=== PATIENT | female | born 1935 | race Caucasian/White ===

== ENCOUNTER 2016-03-28 13:14 | Inpatient (IN) | payer MEDICARE ==
[~2016-03-28] VITALS: Ht 157.5 cm; Wt 104.7 kg
[~2016-03-28 13:14] MED LIST: ALBU17I INH; ALBU2.5I INH; ALLO100 PO; ATOR40TA49 PO; CETI10 PO; DIPH1TAB36 PO; HYDR-2768 PO; ISOS60 PO; LANTUSP SQ; LEVO112T2 PO; MACR100C PO; OMEP20CA5 PO; TAB-TAB PO; TRAZ50TA78 PO; TYLE650T4 PO; VITA400C70 PO
[2016-03-28 13:17] VITALS: BP 180/81; PULSE 108; RESP 24; TEMP 97.6; O2SAT 95
[2016-03-28 14:26] LABS: AUTOMATED NEUTROPHIL # 4.3 TH/MM3 (1.8-7.7); BASOPHIL % 0.4 % (0.0-2.0); EOSINOPHIL % 0.1 % (0.0-4.0); LYMPH % 12.4 % (9.0-44.0); LYMPHOCYTE # 0.7 TH/MM3 (1.0-4.8); MEAN CELL VOLUME 102.2 FL (80.0-100.0); MEAN CORPUSCULAR HGB CONC 32.3 % (32.0-36.0); NEUT % 76.1 % (16.0-70.0); PLATELET COUNT 127 TH/MM3 (150-450); RED BLOOD COUNT 3.91 MIL/MM3 (4.00-5.30); RED CELL DISTRIBUTION WIDTH 19.5 % (11.6-17.2); WHITE BLOOD COUNT 5.6 TH/MM3 (4.0-11.0)
[2016-03-28 14:44] LABS: BICARBONATE 29.3 MEQ/L (21.0-32.0); POTASSIUM 4.1 MEQ/L (3.5-5.1)
[2016-03-28 15:24] LABS: HEMO FLAGS AUTO DIFF
--- NOTE | 2016-03-28 15:25 | RADRPT ---
EXAM DATE/TIME: 03/28/2016 14:49 [facility] COMPARISON: CHEST SINGLE AP, May 17, 2015, 12:58. INDICATIONS : Cough and congestion. MEDICAL HISTORY : Myocardial infarction. Congestive heart failure. Chronic obstructive pulmonary disease. Hyperten aggie. SURGICAL HISTORY : Mastectomy, bilateral. ENCOUNTER: Initial ACUITY: 3 days PAIN SCORE: 0/10 LOCATION: Bilateral chest FINDINGS: PA and lateral views of the chest demonstrate the lungs to be symmetrically aerated without evidence of mass, infiltrate or effusion. The heart size is upper limits of normal and stable compared to the prior study.. Osseous structures are intact and stable. CONCLUSION: No acute pulmonary infiltrates. No significant change. Raul Zamora MD on March 28, 2016 at 15:23 Board Certified Radiologist. This report was verified electronically.
[2016-03-28 15:27] LABS: KERATOCYTES 1+ (NORMAL); TEARDROP RBCS 1+ (NORMAL)
[2016-03-28 15:29] LABS: OVALOCYTES 2+ (NORMAL); SCAN/DIFF AUTO DIFF CONFIRMED
[2016-03-28 16:39] VITALS: BP 179/82; PULSE 112; RESP 22; TEMP 98.4; O2SAT 98
[2016-03-28] MEDS ORDERED: methylPREDNISolone SOD SUCC 125 MG/2 ML VIAL IVP ONE (17:00)
[2016-03-28] MEDS: RESP: ALBUTEROL 2.5 MG/IPRATROPIUM 0.5 MG NEB (SCH) INH (17:11)
--- NOTE | 2016-03-28 17:15 | PD ---
HPI Chief Complaint: Cold / Flu Symptoms Time Seen by Provider: 16:45 Travel History International Travel<30 days: No Contact w/Intl Traveler<30days: No Traveled to known affect area: No History of Present Illness HPI Patient is a 80-year-old female with history of [place], CHF, COPD, [place], hypertension presenting with cough and shortness of breath for 2 days. She's had a thick yellowish-green sputum production and states that she coughs until she gags and vomits. She denies any hematemesis. She has wheezing. She has not been using nebulizers as they are out of date. She denies any chest pain and fevers. She's had runny nose and nasal congestion. No known sick contacts. She denies any diarrhea or constipation and said occasional intermittent abdominal discomfort and reduced appetite with nausea but denies any vomiting other than the post tussive emesis. She states she's had to episodes a small amount of bright red blood in her stool but denies melena. She is currently on Bumex and has been taking her medications. 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 She denies any pain in her legs. She has been off of warfarin since that ablation for A. fib. PFSH Past Medical History Hx Anticoagulant Therapy: Yes Arthritis: Yes Asthma: Yes Blood Disorders: No Heart Rhythm Problems: Yes Cancer: Yes (bilateral breast cancer) Cardiovascular Problems: Yes High Cholesterol: Yes Chemotherapy: No Chest Pain: No Congestive Heart Failure: Yes COPD: Yes Diabetes: Yes Patient Takes Glucophage: No Endocrine: Yes Gastrointestinal Disorders: Yes GERD: Yes Glaucoma: No Genitourinary: No Hepatitis: No Hiatal Hernia: Yes Hypertension: Yes Immune Disorder: No Implanted Vascular Access Dvce: Yes Kidney Stones: No Musculoskeletal: Yes Neurologic: No Psychiatric: No Reproductive: No Respiratory: Yes Immunizations Current: Yes Myocardial Infarction: Yes Radiation Therapy: No Renal Failure: No Sleep Apnea: Yes (uses cpap) Thyroid Disease: No Ulcer: No ?: Not Menopausal: Yes Past Surgical History Abdominal Surgery: Yes (colon resection) AICD: No Arteriovenous Shunt: No Body Medical Devices: cardiac stents hardware in the neck Cardiac Surgery: Yes (ABLATION) Coronary Stent: Yes Ear Surgery: No Endocrine Surgery: No Eye Surgery: Yes (cataract surgery) Genitourinary Surgery: No Gynecologic Surgery: Yes (hysterectomy danielle mastectomy) Hysterectomy: Yes Insulin Pump: No Joint Replacement: Yes (left hip) Mastectomy: Yes (BILAT) Neurologic Surgery: No Oral Surgery: Yes Pacemaker: No Thoracic Surgery: Yes (BILATERAL MASTECTOMY) Other Surgery: Yes Social History Alcohol Use: No Tobacco Use: No Substance Use: No Allergies-Medications (Allergen,Severity, Reaction): Coded Allergies: Benadryl (Verified Allergy, Severe, 05/17/15) anaphylactic Lasix (Verified Allergy, Severe, 05/17/15) causes throat to swell Norpramin (Verified Allergy, Severe, 05/17/15) causes severe anger Percocet (Verified Allergy, Severe, 05/17/15) causes skin irritation Pineapple (Verified Allergy, Severe, 05/17/15) anaphylactic Latex (Unverified Allergy, Intermediate, Rash, 05/17/15) Reported Meds & Prescriptions Reported Meds & Active Scripts Active Reported Allopurinol 100 Mg Tab 100 Mg PO DAILY Gabapentin 100 Mg Cap 100 Mg PO BID Prilosec (Omeprazole) 20 Mg Cap 20 Mg PO DAILY Aspirin EC (Aspirin) 81 Mg Tabdr 81 Mg PO DAILY Coreg (Carvedilol) 6.25 Mg Tab 6.25 Mg PO DAILY Bumex (Bumetanide) 1 Mg Tab 1 Mg PO DAILY Atorvastatin (Atorvastatin Calcium) 40 Mg Tab 40 Mg PO HS Plavix (Clopidogrel Bisulfate) 75 Mg Tab 75 Mg PO DAILY Novolog Inj (Insulin Aspart) 1,000 Unit/10 Ml Vial 1-20 Units SQ ACHS Max dose at bedtime:( )units; sugars less than 70,(0)units; sugars 150-199,(1) unit; sugars 200-249,(3) units; sugars 250-299,(5) units; sugars 300-349,(7) units; sugars greater than 349,(9) units Trazodone (Trazodone HCl) 100 Mg Tab 100 Mg PO HS Lantus Inj (Insulin Glargine) 1,000 Unit/10 Ml Vial 8 Units SQ BID Levothyroxine (Levothyroxine Sodium) 112 Mcg Tab 112 Mcg PO DAILY Proventil Hfa 6.7 GM Inh (Albuterol Sulfate) 90 Mcg/Act Aer 2.5 Puff INH Q4H PRN Albuterol (Albuterol Sulfate) 2 Mg Tab 2 Mg PO TID Review of Systems Except as stated in HPI: all other systems reviewed are Neg Physical Exam Narrative GENERAL: Well-developed and well-nourished adult female in no acute distress. SKIN: Slight reddening of the skin without breaks in the sacral area. Warm and dry. Good turgor without tenting. HEAD: Normocephalic and atraumatic. EYES: PERRL bilaterally, 5mm. EOMI bilaterally. No injection or icterus present. No proptosis. Lids without edema or erythema. ENT: Bilateral ear canals are non-edematous/non-erythematous without otorrhea. Bilateral TMs have intact landmarks and without distortion, perforation, air- fluid level or erythema. Nasal erythematous and edematous with scant yellow discharge, septum intact and midline. Buccal mucosa pink and moist. Oropharynx free of erythema, tonsillar hypertrophy, masses, swelling, asymmetry and exudates. Uvula midline and airway patent. NECK: Supple, no meningeal signs. Trachea midline, no JVD. No cervical or facial lymphadenopathy. CARDIOVASCULAR: Regular rate and rhythm without murmurs, rubs, clicks or gallops. Radial and dorsalis pedis pulses 2+ bilaterally. Trace pedal edema after wraps removed, negative bilateral Homans sign. There is discoloration consistent with chronic vasculopathy but no signs of cellulitis or open wounds. RESPIRATORY: Diminished breath sounds diffusely with scattered rhonchi and wheezing with fine crackles heard at the bases bilaterally. Frequent wet sounding cough without sputum production. Mildly tachypneic, no use of accessory muscles. GASTROINTESTINAL: Non-tender, non-distended. Normal bowel sounds all 4 quadrants. No masses or organomegaly present. Rectal exam reveals no fissures or hemorrhoids externally. Digital rectal exam reveals no loss of rectal tone, masses or tenderness. There is soft stool in the rectal vault, no hematochezia or melena. Hemoccult negative. MUSCULOSKELETAL: Patient freely moving all four extremities spontaneously. Extremities without clubbing, cyanosis, or edema. No obvious deformities. NEUROLOGIC: CN II-XII grossly intact. Awake and alert. Motor grossly within normal limits. Normal speech. PSYCHIATRIC: Appropriate mood and affect; insight and judgment normal. *Patient was examined in the presence of a nurse, Farida, at all times* Data Data Last Documented VS Vital Signs Date Time Temp Pulse Resp B/P Pulse Ox O2 Delivery O2 Flow Rate FiO2 03/28/16 20:55 112 21 141/68 98 Room Air 03/28/16 19:39 2 03/28/16 19:38 98.1 Orders Complete Blood Count With Diff (03/28/16 13:29) Basic Metabolic Panel (Bmp) (03/28/16 13:29) Blood Culture (03/28/16 13:29) Electrocardiogram (03/28/16 13:29) Chest, Pa & Lat (03/28/16 13:33) Prothrombin Time / Inr (Pt) (03/28/16 16:53) Act Partial Throm Time (Ptt) (03/28/16 16:53) Lactic Acid Sepsis Protocol (03/28/16 16:53) Lipase (03/28/16 16:53) Urinalysis - C+S If Indicated (03/28/16 16:53) Influenzae A/B Antigen (03/28/16 16:53) B-Type Natriuretic Peptide (03/28/16 16:53) Methylprednisolone So Succ Inj (Solumedr (03/28/16 17:00) Albuterol-Ipratropium Neb (Duoneb Neb) (03/28/16 17:00) Ckmb (Isoenzyme) Profile (03/28/16 16:59) Troponin I (03/28/16 16:59) Vancomycin Inj (Vancomycin Inj) (03/28/16 18:12) Piperacil-Tazo 4.5 Gm Premix (Zosyn 4.5 (03/28/16 18:12) Sodium Chlor 0.9% 1000 Ml Inj (Ns 1000 M (03/28/16 18:15) Sodium Chlor 0.9% 1000 Ml Inj (Ns 1000 M (03/28/16 18:15) Sodium Chlor 0.9% 1000 Ml Inj (Ns 1000 M (03/28/16 18:15) Sodium Chlor 0.9% 1000 Ml Inj (Ns 1000 M (03/28/16 18:15) Ct Abd/Pel W/O Iv Contrast (03/28/16 18:41) Ventilation & Perfusion Scan (03/28/16 20:24) Sodium Chlor 0.9% 1000 Ml Inj (Ns 1000 M (03/28/16 20:41) Comprehensive Metabolic Panel (03/28/16 22:33) Admit Order (Ed Use Only) (03/28/16 22:33) Labs Laboratory Tests Test 03/28/16 03/28/16 03/28/16 03/28/16 14:00 17:24 17:45 18:25 White Blood Count 5.6 TH/MM3 Red Blood Count 3.91 MIL/MM3 Hemoglobin 12.9 GM/DL Hematocrit 40.0 % Mean Corpuscular Volume 102.2 FL Mean Corpuscular Hemoglobin 33.0 PG Mean Corpuscular Hemoglobin 32.3 % Concent Red Cell Distribution Width 19.5 % Platelet Count 127 TH/MM3 Mean Platelet Volume 8.9 FL Neutrophils (%) (Auto) 76.1 % Lymphocytes (%) (Auto) 12.4 % Monocytes (%) (Auto) 11.0 % Eosinophils (%) (Auto) 0.1 % Basophils (%) (Auto) 0.4 % Neutrophils # (Auto) 4.3 TH/MM3 Lymphocytes # (Auto) 0.7 TH/MM3 Monocytes # (Auto) 0.6 TH/MM3 Eosinophils # (Auto) 0.0 TH/MM3 Basophils # (Auto) 0.0 TH/MM3 CBC Comment AUTO DIFF Differential Comment AUTO DIFF CONFIRMED Basophilic Stippling FAINT Tear Drop Cells 1+ Ovalocytes 2+ Keratocytes 1+ Sodium Level 134 MEQ/L Potassium Level 4.1 MEQ/L Chloride Level 96 MEQ/L Carbon Dioxide Level 29.3 MEQ/L Anion Gap 9 MEQ/L Blood Urea Nitrogen 21 MG/DL Creatinine 1.49 MG/DL Estimat Glomerular Filtration 34 ML/MIN Rate Random Glucose 143 MG/DL Calcium Level 7.9 MG/DL Total Creatine Kinase 46 U/L Troponin I 0.03 NG/ML B-Type Natriuretic Peptide 2608 PG/ML Lipase 58 U/L Lactic Acid Level 5.5 mmol/L Prothrombin Time 17.7 SEC Prothromb Time International 1.6 RATIO Ratio Activated Partial 29.6 SEC Thromboplast Time Urine Color YELLOW Urine Turbidity CLEAR Urine pH 5.0 Urine Specific [place] 1.010 Urine Protein NEG mg/dL Urine Glucose (UA) NEG mg/dL Urine Ketones NEG mg/dL Urine Occult Blood NEG Urine Nitrite NEG Urine Bilirubin NEG Urine Urobilinogen LESS THAN 2.0 MG/DL Urine Leukocyte Esterase NEG Urine Amorphous Sediment OCC Microscopic Urinalysis Comment CATH-CULT NOT IND Test 12/30/16 19:45 Lactic Acid Level 5.7 mmol/L [facility] Medical Decision Making Medical Screen Exam Complete: Yes Emergency Medical Condition: Yes Differential Diagnosis COPD exacerbation versus bronchitis versus pneumonia versus CHF exacerbation versus ACS versus pancreatitis versus GI bleed Narrative Course Patient is a 80-year-old female with history of COPD, CHF, [place], hypertension and gastric bypass presenting with complaint of productive cough and dyspnea the last 2 days. She denies any chest pain and has chronic pedal edema without any acute worsening. She's had some runny nose as well. Denies fever. She reports she is also had some nonbloody emesis, left lower quadrant pain and occasional epigastric pain and some bright red blood by rectum. Hemoccult negative. Tender the left lower quadrant and epigastrium. Patient is very coarse breath sounds with rhonchi and rales which did improve with Solu-Medrol and DuoNeb's. Chest x-ray shows no acute cardiopulmonary process including acute CHF exacerbation. CBC shows WBC 5.6 with a mild neutrophilia without bands. H&H 12.9/40. Patient admits 127. Metabolic panel shows sodium 134, creatinine 1.49 which is chronic. Calcium 7.9 which is chronic. Troponin 0.3 and CK 46. EKG showed no changes when compared to previous. Lactic acid was stat call 5.5. Consulted again with who started patient on vancomycin and Zosyn for likely intra-abdominal source. Initiated fluids per sepsis protocol and I was to observe patient and reevaluate her after the first liter. Shortly after Dr. Aldana took over for her and the patient's BNP was 2608. We stopped the fluids. Patient no increased work of breathing or rales on auscultation. UA unremarkable. CT scan shows diverticulosis and cannot exclude diverticulitis. There is ascites, small left pleural effusion and a ventral wall hernia as well as anasarca. Patient has remained tachycardic throughout but continues to deny chest pain. There is no signs of DVT on exam however she does have remote history of DVT. We will order a VQ scan as she does not have the renal function for a contrast CTA. Her blood pressures remained stable throughout and she is not hypoxic. Per Dr. Aldana's suggestion consult with Dr. Jameson the professor of family medicine who recommended to continue the liter bolus and then switched to maintenance fluids at 100 cc per hour afterwards. He stated that we should admit her to the hospitalist service but they can have an ICU bed she can be more closely monitored. VQ scan shows low probability. Call was placed to Dr. Mcfadden who accepted the admission. [facility] Point of Care Internal Pos. & Neg. Controls: Passed Fecal Specimen Occult Blood: Negative Diagnosis Primary Impression: Sepsis Qualified Code: A41.9 - Sepsis, due to unspecified organism Additional Impression: Diverticulitis Qualified Code: K57.32 - Diverticulitis of large intestine without perforation or abscess without bleeding Admitting Information Admitting Physician Requests: Admit Condition: Stable Clyde Whelan III Mar 28, 2016 17:15
[2016-03-28] MEDS ORDERED: PIPERACIL-TAZO 4.5 GM PREMIX 100 ML IV STA (18:12)
[2016-03-28] MEDS ORDERED: VANCOMYCIN INJ 1,000 MG in SODIUM CHLOR 0.9% 250 ML INJ 250 ML IV STA (18:12)
[2016-03-28] MEDS ORDERED: SODIUM CHLOR 0.9% 1000 ML INJ 700 ML IV ONE (18:15)
[2016-03-28] MEDS ORDERED: SODIUM CHLOR 0.9% 1000 ML INJ 1,000 ML IV ONE ×3 (18:15)
--- NOTE | 2016-03-28 18:20 | PD ---
Data Data Last Documented VS Vital Signs Date Time Temp Pulse Resp B/P Pulse Ox O2 Delivery O2 Flow Rate FiO2 03/28/16 20:55 112 21 141/68 98 Room Air 03/28/16 19:39 2 03/28/16 19:38 98.1 Orders Complete Blood Count With Diff (03/28/16 13:29) Basic Metabolic Panel (Bmp) (03/28/16 13:29) Blood Culture (03/28/16 13:29) Electrocardiogram (03/28/16 13:29) Chest, Pa & Lat (03/28/16 13:33) Prothrombin Time / Inr (Pt) (03/28/16 16:53) Act Partial Throm Time (Ptt) (03/28/16 16:53) Lactic Acid Sepsis Protocol (03/28/16 16:53) Lipase (03/28/16 16:53) Urinalysis - C+S If Indicated (03/28/16 16:53) Influenzae A/B Antigen (03/28/16 16:53) B-Type Natriuretic Peptide (03/28/16 16:53) Methylprednisolone So Succ Inj (Solumedr (03/28/16 17:00) Albuterol-Ipratropium Neb (Duoneb Neb) (03/28/16 17:00) Ckmb (Isoenzyme) Profile (03/28/16 16:59) Troponin I (03/28/16 16:59) Vancomycin Inj (Vancomycin Inj) (03/28/16 18:12) Piperacil-Tazo 4.5 Gm Premix (Zosyn 4.5 (03/28/16 18:12) Sodium Chlor 0.9% 1000 Ml Inj (Ns 1000 M (03/28/16 18:15) Sodium Chlor 0.9% 1000 Ml Inj (Ns 1000 M (03/28/16 18:15) Sodium Chlor 0.9% 1000 Ml Inj (Ns 1000 M (03/28/16 18:15) Sodium Chlor 0.9% 1000 Ml Inj (Ns 1000 M (03/28/16 18:15) Ct Abd/Pel W/O Iv Contrast (03/28/16 18:41) Ventilation & Perfusion Scan (03/28/16 20:24) Sodium Chlor 0.9% 1000 Ml Inj (Ns 1000 M (03/28/16 20:41) Comprehensive Metabolic Panel (03/28/16 22:33) Admit Order (Ed Use Only) (03/28/16 22:33) Labs Laboratory Tests Test 03/28/16 03/28/16 03/28/16 03/28/16 14:00 17:24 17:45 18:25 White Blood Count 5.6 TH/MM3 Red Blood Count 3.91 MIL/MM3 Hemoglobin 12.9 GM/DL Hematocrit 40.0 % Mean Corpuscular Volume 102.2 FL Mean Corpuscular Hemoglobin 33.0 PG Mean Corpuscular Hemoglobin 32.3 % Concent Red Cell Distribution Width 19.5 % Platelet Count 127 TH/MM3 Mean Platelet Volume 8.9 FL Neutrophils (%) (Auto) 76.1 % Lymphocytes (%) (Auto) 12.4 % Monocytes (%) (Auto) 11.0 % Eosinophils (%) (Auto) 0.1 % Basophils (%) (Auto) 0.4 % Neutrophils # (Auto) 4.3 TH/MM3 Lymphocytes # (Auto) 0.7 TH/MM3 Monocytes # (Auto) 0.6 TH/MM3 Eosinophils # (Auto) 0.0 TH/MM3 Basophils # (Auto) 0.0 TH/MM3 CBC Comment AUTO DIFF Differential Comment AUTO DIFF CONFIRMED Basophilic Stippling FAINT Tear Drop Cells 1+ Ovalocytes 2+ Keratocytes 1+ Sodium Level 134 MEQ/L Potassium Level 4.1 MEQ/L Chloride Level 96 MEQ/L Carbon Dioxide Level 29.3 MEQ/L Anion Gap 9 MEQ/L Blood Urea Nitrogen 21 MG/DL Creatinine 1.49 MG/DL Estimat Glomerular Filtration 34 ML/MIN Rate Random Glucose 143 MG/DL Calcium Level 7.9 MG/DL Total Creatine Kinase 46 U/L Troponin I 0.03 NG/ML B-Type Natriuretic Peptide 2608 PG/ML Lipase 58 U/L Lactic Acid Level 5.5 mmol/L Prothrombin Time 17.7 SEC Prothromb Time International 1.6 RATIO Ratio Activated Partial 29.6 SEC Thromboplast Time Urine Color YELLOW Urine Turbidity CLEAR Urine pH 5.0 Urine Specific [place] 1.010 Urine Protein NEG mg/dL Urine Glucose (UA) NEG mg/dL Urine Ketones NEG mg/dL Urine Occult Blood NEG Urine Nitrite NEG Urine Bilirubin NEG Urine Urobilinogen LESS THAN 2.0 MG/DL Urine Leukocyte Esterase NEG Urine Amorphous Sediment OCC Microscopic Urinalysis Comment CATH-CULT NOT IND Test 03/28/16 19:45 Lactic Acid Level 5.7 mmol/L MDM Supervised Visit with TOMMY: Yes Narrative Course I, Dr. Simmons, have reviewed the advance practice practioner's documentation and am in agreement, met with the patient face to face, made the diagnosis, and the medical decision making was done by me. *My assessment and Findings: 80-year-old female with history of CAD with previous [place], CHF, COPD, HTN here with 2 days of shortness of breath, sputum production. No documented fevers. She notes mild periumbilical abdominal discomfort. Questionable blood in the stool, states that the stool has been dark. On exam she has mild to moderate periumbilical tenderness to palpation without rebound or guarding. Wheezing and rhonchi throughout. Slightly tachycardic, slightly tachypneic. Hemoccult per PA was negative. Differential includes COPD exacerbation, pneumonia, viral syndrome, influenza, CHF exacerbation, sepsis, intra-abdominal source sepsis. Her abdominal examination is not out of proportion to where I would suspect mesenteric ischemia. Patient's EKG is at baseline with right bundle branch block. No active ischemic changes. Chest x-ray negative for any focal infiltrate. Laboratory workup notable for lactate of 5.5. Patient was given 30 mg/kg normal saline bolus and we will monitor for signs of evidence of volume overload. She was covered with vancomycin, Zosyn. CT abdomen and pelvis showed possible diverticulitis. Patient had been treated appropriately with antibiotics and will be admitted for further management of his septic shock. Critical Care Narrative Aggregate critical care time was 35 minutes. Time to perform other separately billable procedures was not included in the critical care time. My time did not include minutes spent treating any other patients simultaneously or on activities that did not directly contribute to the patient's treatment. The services I provided to this patient were to treat and/or prevent clinically significant deterioration that could result in: Cardiopulmonary decompensation, , disability I provided critical care services requiring my management, as noted below: Chart data review, documentation time, medication orders and management, vital sign assessments/reviewing monitor data, ordering and reviewing lab tests, ordering and interpreting/reviewing x-rays and diagnostic studies, care of the patient and discussion of the patient with the admitting physicians. Sepsis Criteria SIRS Criteria (2 or more): Heart rate over 90 Sepsis Criteria (SIRS+source): Infect source susp/known Severe Sepsis (+one): Lactate >2 Septic Shock Criteria: Lactic acid >=4 Criteria Outcome: Meets SIRS criteria, Meets sepsis criteria, Meets severe sepsis criteria, Meets septic shock criteria Laura Simmons MD Mar 28, 2016 18:20
[2016-03-28 18:28] LABS: APTT (PATIENT) 29.6 SEC (24.3-30.1); INTERNATIONAL NORMALIZED RATIO 1.6 RATIO; PROTHROMBIN TIME - PATIENT 17.7 SEC (9.8-11.6)
[2016-03-28 18:47] LABS: BLOOD, URINE NEG (NEG); GLUCOSE,URINE NEG (NEG); KETONE, URINE NEG (NEG); NITRITE,URINE NEG (NEG); URINE COLOR YELLOW (YELLW/STRAW)
[2016-03-28 18:48] LABS: COMMENT (UR) CATH-CULT NOT IND; CULTURE IF INDICATED CATH CULTURE NOT IND
[2016-03-28] MEDS ORDERED: ASPI81TA11 PO (19:05)
[2016-03-28] MEDS ORDERED: ALBU6.7H INH (19:05)
[2016-03-28] MEDS ORDERED: LEVO112T2 PO (19:05)
[2016-03-28] MEDS ORDERED: BUME1TAB26 PO (19:05)
[2016-03-28] MEDS ORDERED: PRIL20CA9 PO (19:05)
[2016-03-28] MEDS ORDERED: CARV6.25 PO (19:05)
[2016-03-28] MEDS ORDERED: PLAV75TA29 PO (19:05)
[2016-03-28] MEDS ORDERED: ATOR40TA16 PO (19:05)
[2016-03-28] MEDS ORDERED: TRAZ100T4 PO (19:05)
[2016-03-28] MEDS ORDERED: NOVOLOGP2 SQ (19:05)
[2016-03-28] MEDS ORDERED: ALLO100T PO (19:05)
[2016-03-28] MEDS ORDERED: LANTUS2P SQ (19:05)
[2016-03-28] MEDS ORDERED: GABA100C4 PO (19:05)
[2016-03-28] MEDS ORDERED: ALBU2TAB4 PO (19:05)
--- NOTE | 2016-03-28 19:16 | RADRPT ---
EXAM DATE/TIME: 03/28/2016 18:52 [facility] COMPARISON: No previous studies available for comparison. INDICATIONS : LLQ abdominal pain for 1 day. ORAL CONTRAST: No oral contrast ingested. RADIATION DOSE: 16.15 CTDIvol (mGy) MEDICAL HISTORY : Hypertension. Cardiovascular disease Chronic obstructive pulmonary disease.Hiatal hernia; Diabetes. SURGICAL HISTORY : Mastectomy, bilateral. Hysterectomy.Colon resection.Left hip replacement; Gastric bypass. ENCOUNTER: Initial ACUITY: 1 day PAIN SCALE: 5/10 LOCATION: Left lower quadrant Abdomen/pelvis TECHNIQUE: Volumetric scanning of the abdomen and pelvis was performed. Using automated exposure control and ad justment of the mA and/or kV according to patient size, radiation dose was kept as low as reasonably achievable to obtain optimal diagnostic quality images. FINDINGS: LOWER LUNGS: Small left pleural effusion LIVER: Homogeneous density without lesion. There is no dilation of the biliary tree. Cholecystectomy clips . Small abdominal ascites. SPLEEN: Normal size without lesion. PANCREAS: Within normal limits. KIDNEYS: Normal in size and shape. There is no mass, stone, or hydronephrosis. ADRENAL GLANDS: Within normal limits. VASCULAR: There is no aortic aneurysm. BOWEL/MESENTERY: Scattered diverticulosis. Minimal fluid in the left lower quadrant. There is no free intraperitoneal air or fluid. Dialysis catheter is seen. Lap band procedure. ABDOMINAL WALL: Small ventral wall hernia on the left lower abdomen. This contains predominantly fat. RETROPERITONEUM: There is no lymphadenopathy. BLADDER: No wall thickening or mass. REPRODUCTIVE: Within normal limits. INGUINAL: There is no lymphadenopathy or hernia. MUSCULOSKELETAL: Anasarca along the soft tissues.. CONCLUSION: 1. Diverticulosis of the sigmoid colon, cannot exclude diverticulitis. 2. Small amount of abdominal ascites. 3. Small left pleural effusion. 4. Ventral wall hernia containing fat along the left abdominal wall. 5. Cholecystectomy. 6. Anasarca. 7. LAP band procedure. Vipin Magdaleno MD on March 28, 2016 at 19:08 Board Certified Radiologist. This report was verified electronically.
[2016-03-28 19:35] LABS: LACTIC ACID GHOST NOT REPORTABLE
[2016-03-28 19:38] VITALS: BP 147/79; PULSE 125; RESP 24; TEMP 98.1; O2SAT 99
[2016-03-28] MEDS ORDERED: SODIUM CHLOR 0.9% 1000 ML INJ 1,000 ML IV SCH (20:41)
[2016-03-28 20:55] VITALS: BP 141/68; PULSE 112; RESP 21; O2SAT 98
--- NOTE | 2016-03-28 22:03 | RADRPT ---
EXAM DATE/TIME: 03/28/2016 21:31 [facility] COMPARISON: No previous studies available for comparison. INDICATIONS : Dyspnea for one month with cough. DOSE: 8.5 mCi Tc99m MAA IV 0.77 mCi Tc99m DTPA aerosol MEDICAL HISTORY : Chronic obstructive pulmonary disease. Gastroesophageal reflux disease. Myocardial infarction. Hypert ension, breast cancer, atrial fibrillation and congestive heart failure. SURGICAL HISTORY : Hysterectomy. Mastectomy, bilateral. Colon resection. Ablation and left hip replacement. ENCOUNTER: Initial ACUITY: 1 month PAIN SCALE: 0/10 LOCATION: chest TECHNIQUE: Following five minutes of tidal breathing of DTPA aerosol, planar images of the lungs were performed in eight projections. The patient was then injected with MAA, and eight-view perfusion scan was perf ormed. FINDINGS: There is a heterogeneous pattern of aerosol delivery to the periphery of both lungs. No focal ventil atory defects are seen. The perfusion lung scan demonstrates a homogenous pattern of uptake in both lungs. No segmental or s ubsegmental defects are seen. CONCLUSION: Low probability for pulmonary embolism. Vipin Magdaleno MD on March 28, 2016 at 22:01 Board Certified Radiologist. This report was verified electronically.
--- NOTE | 2016-03-28 22:37 | HHI.HP ---
[facility] Service [facility] Primary Care Physician Non-Staff Admission Diagnosis SEPSIS, ABD SOURCE Diagnoses: (1) Sepsis Diagnosis: Principal (2) DM (diabetes mellitus) Diagnosis: Principal (3) HTN (hypertension) Diagnosis: Principal (4) CHF (congestive heart failure) Diagnosis: Principal Travel History International Travel<30 Days: No Contact w/Intl Traveler <30 Da: No Traveled to Known Affected Are: No History of Present Illness This is a 80-year-old female with a PMH of HTN, CHF (Echo 09/2015 w/ EF 30-40%), Breast CA and JAMEY who came into the ER w/ complaints of SOB and productive cough w/ yellow-colored sputum x2 days. Denies chest pain or sick contacts. Also reports abdominal pain w/ nausea, but no vomiting. No diarrhea. On arrival, BP 180/81, HR 108, O2 sat 95% on RA, Afebrile. WBC normal. Neutrophil count mildly elevated. Creatinine 1.49, previously 1.25 on 05/17/15. BNP 2608. INR 1.6. CXR with no acute findings. CT Abd/Pelvis w/ diverticulosis, cannot exclude diverticulitis. V/Q Scan low probability for PE. S/p Vanc/Zosyn for Sepsis and suspected intra-abdominal infection. Review of Systems Other ROS: 14 point review of systems otherwise negative. Past Family Social History Past Medical History PMH: HTN, CHF (Echo 09/2015 w/ EF 30-40%), Breast CA and JAMEY Past Surgical History PAST SURGICAL HISTORY: Colon Resection, Cardiac Stent Cardiac Ablation, Cataract Surgery, Hysterectomy, Bilateral Mastectomy, Left Hip Replacement Allergies: Coded Allergies: Benadryl (Verified Allergy, Severe, 05/17/15) anaphylactic Lasix (Verified Allergy, Severe, 05/17/15) causes throat to swell Norpramin (Verified Allergy, Severe, 05/17/15) causes severe anger Percocet (Verified Allergy, Severe, 05/17/15) causes skin irritation Pineapple (Verified Allergy, Severe, 05/17/15) anaphylactic Latex (Unverified Allergy, Intermediate, Rash, 05/17/15) Family History PAST FAMILY HISTORY: Reviewed. No h/o DM or CAD Social History PAST SOCIAL HISTORY: Negative for alcohol, tobacco or drugs. Physical Exam Vital Signs Vital Signs Date Time Temp Pulse Resp B/P Pulse Ox O2 Delivery O2 Flow Rate FiO2 03/28/16 20:55 112 21 141/68 98 Room Air 03/28/16 19:39 124 99 2 03/28/16 19:38 98.1 125 24 147/79 99 Room Air 03/28/16 16:39 98.4 112 22 179/82 98 Room Air 03/28/16 16:39 65 18 97 Room Air 03/28/16 13:17 97.6 108 24 180/81 95 Room Air Physical Exam PE: GENERAL: Elderly female in no acute distress. HEENT: PERRLA, EOMI. No scleral icterus or conjunctival pallor. No lid lag or facial droop. CARDIOVASCULAR: Regular rate and rhythm. No obvious murmurs to auscultation. No chest tenderness to palpation. RESPIRATORY: Scattered rhonchi, occasional wheezing. Clear to auscultation. Breath sounds equal bilaterally. GASTROINTESTINAL: Abdomen soft, non-tender, nondistended. BS normal. MUSCULOSKELETAL: Extremities without clubbing, cyanosis, or edema. No obvious deformities. NEUROLOGICAL: Awake, alert. No focal neurologic deficits. Moving both upper and lower extremities spontaneously. Laboratory Laboratory Tests Test 03/28/16 03/28/16 03/28/16 03/28/16 14:00 17:24 17:45 18:25 White Blood Count 5.6 Red Blood Count 3.91 Hemoglobin 12.9 Hematocrit 40.0 Mean Corpuscular Volume 102.2 Mean Corpuscular Hemoglobin 33.0 Mean Corpuscular Hemoglobin 32.3 Concent Red Cell Distribution Width 19.5 Platelet Count 127 Mean Platelet Volume 8.9 Neutrophils (%) (Auto) 76.1 Lymphocytes (%) (Auto) 12.4 Monocytes (%) (Auto) 11.0 Eosinophils (%) (Auto) 0.1 Basophils (%) (Auto) 0.4 Neutrophils # (Auto) 4.3 Lymphocytes # (Auto) 0.7 Monocytes # (Auto) 0.6 Eosinophils # (Auto) 0.0 Basophils # (Auto) 0.0 CBC Comment AUTO DIFF Differential Comment AUTO DIFF CONFIRMED Basophilic Stippling FAINT Tear Drop Cells 1+ Ovalocytes 2+ Keratocytes 1+ Sodium Level 134 Potassium Level 4.1 Chloride Level 96 Carbon Dioxide Level 29.3 Anion Gap 9 Blood Urea Nitrogen 21 Creatinine 1.49 Estimat Glomerular Filtration 34 Rate Random Glucose 143 Calcium Level 7.9 Total Creatine Kinase 46 Troponin I 0.03 B-Type Natriuretic Peptide 2608 Lipase 58 Lactic Acid Level 5.5 Prothrombin Time 17.7 Prothromb Time International 1.6 Ratio Activated Partial 29.6 Thromboplast Time Urine Color YELLOW Urine Turbidity CLEAR Urine pH 5.0 Urine Specific [place] 1.010 Urine Protein NEG Urine Glucose (UA) NEG Urine Ketones NEG Urine Occult Blood NEG Urine Nitrite NEG Urine Bilirubin NEG Urine Urobilinogen LESS THAN 2.0 Urine Leukocyte Esterase NEG Urine Amorphous Sediment OCC Microscopic Urinalysis Comment CATH-CULT NOT IND Test 03/28/16 19:45 Lactic Acid Level 5.7 Date/Time Procedure Status Source Growth 03/28/16 14:05 Aerobic Blood Culture Received Blood Peripheral Pending 03/28/16 14:05 Anaerobic Blood Culture Received Blood Peripheral Pending Result Diagram: 03/28/16 1400 03/28/16 1400 Assessment and Plan Problem List: (1) Sepsis ICD Code: A41.9 Status: Acute (2) DM (diabetes mellitus) ICD Code: E11.9 Status: Acute (3) HTN (hypertension) ICD Code: I10 Status: Acute (4) CHF (congestive heart failure) ICD Code: I50.9 Status: Acute Assessment and Plan A/P: 1. Sepsis: HR 120's, RR 24. Lactic Acid 5.5, repeat 5.7. Source-suspected intra-abdominal source. S/p Blood Cultures and IV Vanc/Zosyn in ER. Check Sputum cultures in light of productive cough. Continue w/ Vanc/Cefepime. CXR negative, images reviewed by me. CT Abd/Pelvis w/ possible diverticulitis, images reviewed by me. IVF, caution w/ CHF. Repeat lactic acid, repeat labs. 2. CHF: Acute on Chronic. Systolic. EF 30-40% per records from 09/2015. Resume Bumex, caution w/ Sepsis. BNP 2608. 3. DM: Sliding scale w/ Accu-Cheks. Resume home Lantus once taking adequate PO. 4. HTN: Controlled. Hold antihypertensives in light of sepsis, monitor BP. 5. DVT Prophylaxis: SCD/Teds. 6. Social work for d/c planning as needed. 7. Case discussed w/ ER physician at length. Physician Certification 2 Midnight Certification Type: Admission for Inpatient Services Order for Inpatient Services The services are ordered in accordance with Medicare regulations or non- Medicare payer requirements, as applicable. In the case of services not specified as inpatient-only, they are appropriately provided as inpatient services in accordance with the 2-midnight benchmark. Estimated LOS (days): 2 days is the estimated time the patient will need to remain in the hospital, assuming treatment plan goals are met and no additional complications. Post-Hospital Plan: Not yet determined Problem Qualifiers (1) Sepsis: Qualified Code: A41.9 - Sepsis, due to unspecified organism Mendy Mcfadden MD Mar 28, 2016 22:37
[2016-03-28 22:44] VITALS: BP 137/75; PULSE 120; RESP 21; O2SAT 100
[2016-03-28] MEDS ORDERED: DEXTROSE 50% IN WATER 50 ML VIAL(D50) IV PUSH PRN (22:45)
[2016-03-28] MEDS ORDERED: VANCOMYCIN 1,000 MG/NS 250 ML IV ONE ×2 (22:45)
[2016-03-28] MEDS ORDERED: SODIUM CHLORIDE 0.9% FLUSH 5 ML FLUSH FLUSH PRN (22:45)
[2016-03-28] MEDS ORDERED: ALBUTEROL SULFATE 90 MCG/ACT HFA 8 GM INHALER INH PRN (22:45)
[2016-03-28] MEDS ORDERED: BISACODYL 10 MG SUPP PR PRN (22:45)
[2016-03-28] MEDS ORDERED: GLUCAGON 1 MG/ML VIAL OTHER PRN (22:45)
[2016-03-28] MEDS ORDERED: Vancomycin Consult Pharmacy 1 EA OTHER SCH (22:45)
[2016-03-28] MEDS: SODIUM CHLOR 0.9% 1000 ML INJ 1,000 ML IV SCH (22:56)
[2016-03-29] VITALS (14 sets, daily range): BP systolic 127–140; BP diastolic 59–67; PULSE 97–119; RESP 13–26; TEMP 97.4–98; O2SAT 99–100
[2016-03-29] MEDS ORDERED: MISCELLANEOUS NURSING INFORMATION XX SCH (02:00)
[2016-03-29] MEDS ORDERED: CHLORHEXIDINE GLUCONATE 2 % 1 PACK (2 CLOTHS) TOP PRN (02:00)
[2016-03-29 02:36] LABS: ALKALINE PHOSPHATASE 197 U/L (45-117); ALT (GPT) 12 U/L (10-53); ANION GAP 17 MEQ/L (5-15); AST (GOT) 41 U/L (15-37); BLOOD UREA NITROGEN 24 MG/DL (7-18); CHLORIDE 102 MEQ/L (98-107); GLOMERULAR FILTRATION RATE 25 ML/MIN (>89); POTASSIUM 4.9 MEQ/L (3.5-5.1); SODIUM (NA) 138 MEQ/L (136-145); TOTAL BILIRUBIN ADULT 1.7 MG/DL (0.2-1.0)
[2016-03-29] MEDS: CHLORHEXIDINE GLUCONATE 2 % 1 PACK (2 CLOTHS) TOP SCH (04:00)
[2016-03-29] MEDS: INSULIN ASPART SUPPLEMENTAL SCALE SQ SCH ×4 (06:44→20:12)
[2016-03-29] MEDS: ONDANSETRON HCL 4 MG/2 ML VIAL IVP PRN ×3 (07:47→21:37)
--- NOTE | 2016-03-29 08:03 | HHI.PR ---
Subjective Remarks Feels sob and very tired. No much urine output and cr is worsening. No abdominal pain but feels suprapubic discomfort. Says she had a large BM yesterday and she had rectal bleeding. Patient say she has no chest pain . No fever or chills. + cough nonproductive. Objective Vitals Vital Signs Date Time Temp Pulse Resp B/P Pulse Ox O2 Delivery O2 Flow Rate FiO2 03/29/16 06:00 110 03/29/16 05:35 97 03/29/16 05:35 97.4 110 22 129/61 99 03/29/16 04:41 114 21 127/61 99 Nasal Cannula 2 03/29/16 02:12 119 22 130/59 100 Nasal Cannula 2 03/28/16 22:44 120 21 137/75 100 Nasal Cannula 2 03/28/16 20:55 112 21 141/68 98 Room Air 03/28/16 19:39 124 99 2 03/28/16 19:38 98.1 125 24 147/79 99 Room Air 03/28/16 16:39 98.4 112 22 179/82 98 Room Air 03/28/16 16:39 65 18 97 Room Air 03/28/16 13:17 97.6 108 24 180/81 95 Room Air I/O 03/28/16 03/28/16 03/28/16 03/29/16 03/29/16 03/29/16 07:00 15:00 23:00 07:00 15:00 23:00 Intake Total 1067 ml Output Total 300 ml Balance 767 ml Intake Oral 240 ml IV Total 827 ml Output Urine Total 300 ml # Bowel Movements 1 Result Diagram: 03/28/16 1400 03/29/16 0050 Imaging Last Impressions Lung Scan-VQ Nuclear Medicine 03/28/162023 Signed Impressions: Service Date/Time: Monday, March 28, 2016 21:31 - CONCLUSION: Low probability for pulmonary embolism. Vipin Magdaleno MD Abdomen/Pelvis CT 03/28/16 1841 Signed Impressions: Service Date/Time: Monday, March 28, 2016 18:52 - CONCLUSION: 1. Diverticulosis of the sigmoid colon, cannot exclude diverticulitis. 2. Small amount of abdominal ascites. 3. Small left pleural effusion. 4. Ventral wall hernia containing fat along the left abdominal wall. 5. Cholecystectomy. 6. Anasarca. 7. LAP band procedure. Vipin Magdaleno MD Chest X-Ray 03/28/16 1333 Signed Impressions: Service Date/Time: Monday, March 28, 2016 14:49 - CONCLUSION: No acute pulmonary infiltrates. No significant change. Raul Zamora MD Objective Remarks GENERAL: Elderly female appears acutely ill. HEENT: PERRLA, EOMI. No scleral icterus or conjunctival pallor. No lid lag or facial droop. CARDIOVASCULAR: Regular rate and rhythm. No obvious murmurs to auscultation. No chest tenderness to palpation. RESPIRATORY: Scattered rhonchi and wheezing. With sob. GASTROINTESTINAL: Abdomen soft, non-tender, nondistended. BS normal. MUSCULOSKELETAL: Extremities without clubbing, cyanosis, or edema. No obvious deformities. NEUROLOGICAL: Awake, alert. No focal neurologic deficits. Moving both upper and lower extremities spontaneously. A/P Problem List: (1) Sepsis ICD Code: A41.9 Status: Acute (2) DM (diabetes mellitus) ICD Code: E11.9 Status: Acute (3) HTN (hypertension) ICD Code: I10 Status: Acute (4) CHF (congestive heart failure) ICD Code: I50.9 Status: Acute Assessment and Plan Sepsis. Lactic acidosis: HR 120's, RR 24. Lactic Acid 5.5, repeat trending up. Source-suspected intra-abdominal source. S/p Blood Cultures and IV Vanc/ Zosyn in ER. Check Sputum cultures in light of productive cough. Continue w/ Vanc/Cefepime. CXR negative, images reviewed. CT Abd/Pelvis w/ possible diverticulitis, images reviewed. IVF, caution w/ CHF. Repeat lactic acid, repeat labs. Diverticulitis. Rectal bleeding (per patient): Start pantoprazol IV. FOBT. Monitor H/H. Consult GI specialist. Systolic CHF: Acute on Chronic. EF 30-40% per records from 09/2015. Hold Bumex as patient with low UOP, caution w/ Sepsis. BNP 2608 on admission. Improving. Consult Dr Lazo her cardiology DR VARGAS with low UOP. will check UA and renal US. Consult nephrology. On hold bumex.. Give gentle hydration. Monitor Hyperkalemia: Monitor. Will consider kayexalate if trending up DM2: Sliding scale w/ Accu-Cheks. Resume home Lantus once taking adequate PO. HTN: Controlled. Hold antihypertensives in light of sepsis, monitor BP. DVT Prophylaxis: SCD/Teds. Case management consulted for d/c planning as needed. Discussed with the patient, ICU nurse Problem Qualifiers (1) Sepsis: Qualified Code: A41.9 - Sepsis, due to unspecified organism Chapis Vang MD Mar 29, 2016 08:03
[2016-03-29] MEDS: SODIUM CHLOR 0.9% 1000 ML INJ 1,000 ML IV SCH (08:41)
[2016-03-29] MEDS: SODIUM CHLORIDE 0.9% FLUSH 5 ML FLUSH FLUSH SCH ×3 (08:41→20:11)
[2016-03-29] MEDS: GABAPENTIN 100 MG CAP PO SCH ×2 (08:42→20:12)
[2016-03-29] MEDS: guaiFENesin E.R. 600 MG TAB PO SCH ×2 (08:42→20:12)
[2016-03-29] MEDS: ASPIRIN EC 81 MG TABEC PO SCH (08:42)
[2016-03-29] MEDS: CLOPIDOGREL 75 MG TAB PO SCH (08:42)
[2016-03-29] MEDS: CEFEPIME INJ 1,000 MG in SODIUM CHLORIDE 0.9% INJ 100 ML IV SCH ×2 (08:48→20:12)
[2016-03-29] MEDS: MORPHINE SULFATE 4 MG/ML INJ IV PRN ×3 (09:54→20:51)
[2016-03-29] MEDS ORDERED: ACETAMINOPHEN 325 MG TAB PO PRN (10:15)
[2016-03-29] MEDS ORDERED: PROCHLORPERAZINE 25 MG SUPP PR PRN (10:15)
[2016-03-29] MEDS ORDERED: SODIUM CHLORIDE 0.9% FLUSH 5 ML FLUSH FLUSH PRN (10:15)
[2016-03-29] MEDS ORDERED: BISACODYL 10 MG SUPP PR PRN (10:15)
[2016-03-29] MEDS ORDERED: MAGNESIUM HYDROXIDE SUSP 30 ML CUP PO PRN (10:15)
[2016-03-29] MEDS ORDERED: SENNOSIDES 8.6 MG TAB PO PRN (10:15)
[2016-03-29 11:14] LABS: BASOPHIL % 0.3 % (0.0-2.0); HEMATOCRIT 39.2 % (35.0-46.0); LYMPH % 11.5 % (9.0-44.0); LYMPHOCYTE # 0.7 TH/MM3 (1.0-4.8); MEAN CELL VOLUME 105.3 FL (80.0-100.0); MEAN CORPUSCULAR HEMOGLOBIN 33.2 PG (27.0-34.0); MEAN CORPUSCULAR HGB CONC 31.5 % (32.0-36.0); MONO % 6.4 % (0.0-8.0); NEUT % 81.8 % (16.0-70.0); PLATELET COUNT 97 TH/MM3 (150-450); RED BLOOD COUNT 3.72 MIL/MM3 (4.00-5.30); RED CELL DISTRIBUTION WIDTH 19.8 % (11.6-17.2); WHITE BLOOD COUNT 6.2 TH/MM3 (4.0-11.0)
[2016-03-29 11:18] LABS: HEMO FLAGS AUTO DIFF
[2016-03-29] MEDS: PANTOPRAZOLE SODIUM 40 MG VIAL IV PUSH SCH ×2 (11:23→21:55)
[2016-03-29 11:41] LABS: ALKALINE PHOSPHATASE 181 U/L (45-117); ALT (GPT) 18 U/L (10-53); ANION GAP 18 MEQ/L (5-15); AST (GOT) 73 U/L (15-37); BICARBONATE 15.4 MEQ/L (21.0-32.0); BLOOD UREA NITROGEN 28 MG/DL (7-18); CHLORIDE 101 MEQ/L (98-107); GLOMERULAR FILTRATION RATE 27 ML/MIN (>89); SODIUM (NA) 134 MEQ/L (136-145)
--- NOTE | 2016-03-29 11:41 | PD.CONS ---
HPI History of Present Illness This is a 80 year old female who was admitted with sepsis, C/O shortness of breath, productive cough and abdominal pain with nausea but no vomiting. She has not had any diarrhea but in the ED she thought she had blood in her stool and a GI consult was ordered. H&H is stable at 12.9/40. A Ct abdomen/pelvis was done in which did show diverticulosis possible diverticulitis and she was started on antibiotics for possible intra-abdominal infection. She has a Hx of colon resection years ago for diverticulitis. She is on Plavix for cardiac issues. She has not had any stools since arrival to the floor and no signs of bleeding. Last colonoscopy was and EGD was 2 years ago and was normal, she does have C/O heartburn and reflux, abdomen is tender in the periumbilical and left lower quadrant area. (Era James) PFSH Past Medical History PMH: HTN, CHF (Echo 09/2015 w/ EF 30-40%), Breast CA and JAMEY, diverticulitis Past Surgical History PAST SURGICAL HISTORY: Colon Resection, Cardiac Stent Cardiac Ablation, Cataract Surgery, Hysterectomy, Bilateral Mastectomy, Left Hip Replacement, gastric bypass (Era James) Coded Allergies: Benadryl (Verified Allergy, Severe, 05/17/15) anaphylactic Lasix (Verified Allergy, Severe, 05/17/15) causes throat to swell Norpramin (Verified Allergy, Severe, 05/17/15) causes severe anger Percocet (Verified Allergy, Severe, 05/17/15) causes skin irritation Pineapple (Verified Allergy, Severe, 05/17/15) anaphylactic Latex (Unverified Allergy, Intermediate, Rash, 05/17/15) Medications Reported Meds & Active Scripts Active Reported Allopurinol 100 Mg Tab 100 Mg PO DAILY Gabapentin 100 Mg Cap 100 Mg PO BID Prilosec (Omeprazole) 20 Mg Cap 20 Mg PO DAILY Aspirin EC (Aspirin) 81 Mg Tabdr 81 Mg PO DAILY Coreg (Carvedilol) 6.25 Mg Tab 6.25 Mg PO DAILY Bumex (Bumetanide) 1 Mg Tab 1 Mg PO DAILY Atorvastatin (Atorvastatin Calcium) 40 Mg Tab 40 Mg PO HS Plavix (Clopidogrel Bisulfate) 75 Mg Tab 75 Mg PO DAILY Novolog Inj (Insulin Aspart) 1,000 Unit/10 Ml Vial 1-20 Units SQ ACHS Max dose at bedtime:( )units; sugars less than 70,(0)units; sugars 150-199,(1) unit; sugars 200-249,(3) units; sugars 250-299,(5) units; sugars 300-349,(7) units; sugars greater than 349,(9) units Trazodone (Trazodone HCl) 100 Mg Tab 100 Mg PO HS Lantus Inj (Insulin Glargine) 1,000 Unit/10 Ml Vial 8 Units SQ BID Levothyroxine (Levothyroxine Sodium) 112 Mcg Tab 112 Mcg PO DAILY Proventil Hfa 6.7 GM Inh (Albuterol Sulfate) 90 Mcg/Act Aer 2.5 Puff INH Q4H PRN Albuterol (Albuterol Sulfate) 2 Mg Tab 2 Mg PO TID Family History PAST FAMILY HISTORY: Father had colon cancer, Mother had cancer of unknown site Social History PAST SOCIAL HISTORY: Negative for alcohol, tobacco or drugs., originally from [place] (Era James) Review of Systems Gastrointestinal: COMPLAINS OF: Abdominal pain, Nausea, Heartburn (Era James) GI Exam Vitals I&O Vital Signs Date Time Temp Pulse Resp B/P Pulse Ox O2 Delivery O2 Flow Rate FiO2 03/29/16 10:31 99 Nasal Cannula 2.00 03/29/16 10:00 105 03/29/16 09:59 17 03/29/16 08:00 97.7 109 17 140/67 100 03/29/16 08:00 108 03/29/16 07:00 Nasal Cannula 2.00 03/29/16 06:00 110 03/29/16 05:35 97 03/29/16 05:35 97.4 110 22 129/61 99 03/29/16 04:41 114 21 127/61 99 Nasal Cannula 2 03/29/16 02:12 119 22 130/59 100 Nasal Cannula 2 03/28/16 22:44 120 21 137/75 100 Nasal Cannula 2 03/28/16 20:55 112 21 141/68 98 Room Air 03/28/16 19:39 124 99 2 03/28/16 19:38 98.1 125 24 147/79 99 Room Air 03/28/16 16:39 98.4 112 22 179/82 98 Room Air 03/28/16 16:39 65 18 97 Room Air 03/28/16 13:17 97.6 108 24 180/81 95 Room Air I/O 03/28/16 03/28/16 03/28/16 03/29/16 03/29/16 03/29/16 06:59 14:59 22:59 06:59 14:59 22:59 Intake Total 1067 ml Output Total 300 ml Balance 767 ml Intake Oral 240 ml IV Total 827 ml Output Urine Total 300 ml # Bowel Movements 1 Imaging Last 48 hours Impressions Lung Scan-VQ Nuclear Medicine 03/28/162023 Signed Impressions: Service Date/Time: Monday, March 28, 2016 21:31 - CONCLUSION: Low probability for pulmonary embolism. Vipin Magdaleno MD Abdomen/Pelvis CT 03/28/16 184 Signed Impressions: Service Date/Time: Monday, March 28, 2016 18:52 - CONCLUSION: 1. Diverticulosis of the sigmoid colon, cannot exclude diverticulitis. 2. Small amount of abdominal ascites. 3. Small left pleural effusion. 4. Ventral wall hernia containing fat along the left abdominal wall. 5. Cholecystectomy. 6. Anasarca. 7. LAP band procedure. Vipin Magdaleno MD Chest X-Ray 03/28/16 1333 Signed Impressions: Service Date/Time: Monday, March 28, 2016 14:49 - CONCLUSION: No acute pulmonary infiltrates. No significant change. Raul Zamora MD Laboratory Test 03/28/16 03/28/16 03/28/16 03/28/16 14:00 17:24 17:45 18:25 White Blood Count 5.6 TH/MM3 Red Blood Count 3.91 MIL/MM3 Hemoglobin 12.9 GM/DL Hematocrit 40.0 % Mean Corpuscular Volume 102.2 FL Mean Corpuscular Hemoglobin 33.0 PG Mean Corpuscular Hemoglobin 32.3 % Concent Red Cell Distribution Width 19.5 % Platelet Count 127 TH/MM3 Mean Platelet Volume 8.9 FL Neutrophils (%) (Auto) 76.1 % Lymphocytes (%) (Auto) 12.4 % Monocytes (%) (Auto) 11.0 % Eosinophils (%) (Auto) 0.1 % Basophils (%) (Auto) 0.4 % Neutrophils # (Auto) 4.3 TH/MM3 Lymphocytes # (Auto) 0.7 TH/MM3 Monocytes # (Auto) 0.6 TH/MM3 Eosinophils # (Auto) 0.0 TH/MM3 Basophils # (Auto) 0.0 TH/MM3 CBC Comment AUTO DIFF Differential Comment AUTO DIFF CONFIRMED Basophilic Stippling FAINT Tear Drop Cells 1+ Ovalocytes 2+ Keratocytes 1+ Sodium Level 134 MEQ/L Potassium Level 4.1 MEQ/L Chloride Level 96 MEQ/L Carbon Dioxide Level 29.3 MEQ/L Anion Gap 9 MEQ/L Blood Urea Nitrogen 21 MG/DL Creatinine 1.49 MG/DL Estimat Glomerular Filtration 34 ML/MIN Rate Random Glucose 143 MG/DL Calcium Level 7.9 MG/DL Total Creatine Kinase 46 U/L Troponin I 0.03 NG/ML B-Type Natriuretic Peptide 2608 PG/ML Lipase 58 U/L Lactic Acid Level 5.5 mmol/L Prothrombin Time 17.7 SEC Prothromb Time International 1.6 RATIO Ratio Activated Partial 29.6 SEC Thromboplast Time Urine Color YELLOW Urine Turbidity CLEAR Urine pH 5.0 Urine Specific [place] 1.010 Urine Protein NEG mg/dL Urine Glucose (UA) NEG mg/dL Urine Ketones NEG mg/dL Urine Occult Blood NEG Urine Nitrite NEG Urine Bilirubin NEG Urine Urobilinogen LESS THAN 2.0 MG/DL Urine Leukocyte Esterase NEG Urine Amorphous Sediment OCC Microscopic Urinalysis Comment CATH-CULT NOT IND Test 03/28/16 03/29/16 03/29/16 03/29/16 19:45 00:50 05:36 10:42 Lactic Acid Level 5.7 mmol/L 8.9 mmol/L Sodium Level 138 MEQ/L Potassium Level 4.9 MEQ/L Chloride Level 102 MEQ/L Carbon Dioxide Level 19.0 MEQ/L Anion Gap 17 MEQ/L Blood Urea Nitrogen 24 MG/DL Creatinine 1.94 MG/DL Estimat Glomerular Filtration 25 ML/MIN Rate Random Glucose 165 MG/DL Calcium Level 7.7 MG/DL Total Bilirubin 1.7 MG/DL Aspartate Amino Transf 41 U/L (AST/SGOT) Alanine Aminotransferase 12 U/L (ALT/SGPT) Alkaline Phosphatase 197 U/L Total Protein 7.7 GM/DL Albumin 2.7 GM/DL Nasal Screen MRSA (PCR) POSITIVE White Blood Count 6.2 TH/MM3 Red Blood Count 3.72 MIL/MM3 Hemoglobin 12.4 GM/DL Hematocrit 39.2 % Mean Corpuscular Volume 105.3 FL Mean Corpuscular Hemoglobin 33.2 PG Mean Corpuscular Hemoglobin 31.5 % Concent Red Cell Distribution Width 19.8 % Platelet Count 97 TH/MM3 Mean Platelet Volume 8.4 FL Neutrophils (%) (Auto) 81.8 % Lymphocytes (%) (Auto) 11.5 % Monocytes (%) (Auto) 6.4 % Eosinophils (%) (Auto) 0.0 % Basophils (%) (Auto) 0.3 % Neutrophils # (Auto) 5.0 TH/MM3 Lymphocytes # (Auto) 0.7 TH/MM3 Monocytes # (Auto) 0.4 TH/MM3 Eosinophils # (Auto) 0.0 TH/MM3 Basophils # (Auto) 0.0 TH/MM3 CBC Comment AUTO DIFF Date/Time Procedure Status Source Growth 03/29/16 00:50 Influenza Types A,B Antigen (TED) - Final Complete Nasal Washing NEGATIVE FOR FLU A AND B ANTIGEN.... 03/28/16 14:05 Aerobic Blood Culture - Preliminary Resulted Blood Peripheral NO GROWTH IN 1 DAY 03/28/16 14:05 Anaerobic Blood Culture - Preliminary Resulted Blood Peripheral NO GROWTH IN 1 DAY Physical Examination HEENT: Pupils round and reactive to light; normocephalic; atraumatic; no jaundice. Throat is clear. NECK: Neck is supple, no JVD, no lymphadenopathy. CHEST: Chest is clear to auscultation and percussion. CARDIAC: Regular rate and rhythm with no murmur gallop or rubs. ABDOMEN: Soft, nondistended, tender periumbilical area and LLQ; no hepatosplenomegaly; bowel sounds are present in all four quadrants. EXTREMITIES: No clubbing, cyanosis, or edema. SKIN: Normal; no rash; no jaundice. 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 (Era James) Assessment and Plan Assessment: (1) GI bleed Plan: Patient reported small amount blood in stool in ED No stools today, no signs of bleeding today FOBT is pending to be done with next BM H&h is stable at 12.9/40 (2) Diverticulitis Plan: CT abd/eplvis showed possible diverticulosis and possible diverticulitis suspected intra-abdominal infection continue antibiotics (3) Chronic anticoagulation Plan: patient is on Plavix (4) Sepsis Plan: Follow by PCP On antibiotics Plan This is a 80 year old female with possible GI bleed, she is on Plavix. Has underlying diverticulitis and has been started on antibiotics. Last colonoscopy was done 2 years ago along with EGD she thinks both procedures were normal and was told she would need another colonoscopy, she does have a Hx of GERD on Omeprazole. C/O abdominal pain in periumbilcal and LLQ area. No bleeding since admission and H&H is stable. If any further bleeding is seen and has positive fecal occult blood she will need a colonoscopy when diverticulitis is stable and she has been off of Plavix for at least 4 days. She should continue PPI's, she does have a family Hx of colon cancer in her father Plan -Guiac stools -Follow H&H -Call GI for any bleeding -Continue antibiotics for diverticulitis -Continue PPI -Possible colonoscopy once infection improves -JEREMÍAS -Would need to hold Plavix for several days, if colonoscopy is needed Thank you for the consult Patient was seen and examined by Dr. Melendrez and myself, this consultation is written on his behalf. (Era James) Physician Comments Seen and examined, plan as above, no evidence of active bleeding now, will follow up with you. (Osbaldo Melendrez MD) Problem Qualifiers (1) GI bleed: Qualified Code: K92.2 - Gastrointestinal hemorrhage, unspecified gastrointestinal hemorrhage type (2) Diverticulitis: Qualified Code: K57.32 - Diverticulitis of large intestine without perforation or abscess without bleeding (3) Sepsis: Qualified Code: A41.9 - Sepsis, due to unspecified organism Era James Mar 29, 2016 11:41 Osbaldo Melendrez MD Mar 29, 2016 12:37
[2016-03-29 11:47] LABS: POTASSIUM 5.8 MEQ/L (3.5-5.1)
--- NOTE | 2016-03-29 12:45 | RADRPT ---
EXAM DATE/TIME: 03/29/2016 11:52 [facility] COMPARISON: No previous studies available for comparison. INDICATIONS : Swelling. MEDICAL HISTORY : Chronic obstructive pulmonary disease. Gastroesophageal reflux disease. Myocardial infarction. Hypert ension. Breast cancer. Afib. CHF. SURGICAL HISTORY : Hysterectomy.Mastectomy, bilateral. Colon resection. Ablation. Left hip replacement. ENCOUNTER: Initial ACUITY: 1 day PAIN SCORE: 5/10 LOCATION: Bilateral leg. TECHNIQUE: Venous ultrasound of the left and right leg was performed from the inguinal ligament to the proximal calf. Real-time, color Doppler and spectral tracing, compression and augmentation techniques were us ed. FINDINGS: RIGHT LEG: There is normal compressibility of the deep venous system from the inguinal region to the proximal ca lf. No echogenic clot is seen in the lumen of the common femoral, femoral, popliteal, and posterior tibial veins. There is a normal response of the venous system to proximal and distal augmentation an d respiration. LEFT LEG: There is normal compressibility of the deep venous system from the inguinal region to the proximal ca lf. No echogenic clot is seen in the lumen of the common femoral, femoral, popliteal, and posterior tibial veins. There is a normal response of the venous system to proximal and distal augmentation an d respiration. CONCLUSION: Normal examination. José Miguel Louis MD on March 29, 2016 at 12:44 Board Certified Radiologist. This report was verified electronically.
--- NOTE | 2016-03-29 12:47 | RADRPT ---
EXAM DATE/TIME: 03/29/2016 12:11 [facility] COMPARISON: CT ABDOMEN & PELVIS W/O CONTRAST, March 28, 2016, 18:52. INDICATIONS : Increased Bun and Creatine. MEDICAL HISTORY : Chronic obstructive pulmonary disease. Gastroesophageal reflux disease. Myocardial infarction. Hypert ension. Breast cancer. Afib. CHF. SURGICAL HISTORY : Hysterectomy. Mastectomy, bilateral. Colon resection. Ablation. Left hip replacement. ENCOUNTER: Initial ACUITY: 1 day PAIN SCORE: 5/10 LOCATION: Bilateral flank MEASUREMENTS: RIGHT KIDNEY: 10.5 x 5.3 x 5.1 cm LEFT KIDNEY: 9.8 x 3.8 x 5.5 cm FINDINGS: RIGHT KIDNEY: 1.1 cm cyst. No hydronephrosis. LEFT KIDNEY: Renal cortex is normal in thickness and echotexture. No hydronephrosis, stone, or mass. BLADDER: Not visualized. CONCLUSION: 1. Right renal cyst. 2. Bladder not visualized. José Miguel Louis MD on March 29, 2016 at 12:45 Board Certified Radiologist. This report was verified electronically.
[2016-03-29 13:37] LABS: PLATELET ESTIMATE SMEAR LOW (NORMAL); PLATELET MORPHOLOGY NORMAL (NORMAL); POLYCHROMASIA 2.3 % (0.0-1.9); SCAN/DIFF AUTO DIFF CONFIRMED
[2016-03-29] MEDS ORDERED: SODIUM CHLORID 0.9% 500 ML INJ 500 ML IV ONE ×2 (13:45→21:30)
--- NOTE | 2016-03-29 13:52 | EKG ---
Date Performed: 03/28/2016 Time Performed: 14:08:08 PTAGE: 80 years EKG: SINUS TACHYCARDIA WITH FREQUENT VENTRICULAR PREMATURE COMPLEXES INCOMPLETE RIGHT BUNDLE BRA NCH BLOCK PROBABLE LATERAL MYOCARDIAL INFARCTION ABNORMAL ECG Since PREVIOUS TRACING , no significant change noted PREVIOUS TRACIN05/17/2015 12.32 DOCTOR: Pia Altman Interpretating Date/Time 03/29/2016 13:51:02
--- NOTE | 2016-03-29 17:34 | MB ---
cc: CARLINE HORVATH M.D. DATE OF CONSULTATION: 03/29/2016. REASON FOR CONSULTATION / CHIEF COMPLAINT: Shortness of breath. HISTORY OF PRESENT ILLNESS: The patient is a 80-year-old diabetic, hypertensive, hyperlipidemic female with a history of known coronary artery disease not amendable to revascularization. She has a history of primary pulmonary hypertension with severely elevated pulmonary artery pressures. There is a history of paroxysmal atrial fibrillation and she is status post ablation on chronic warfarin therapy. Her history and physical here suggests that she has a history of cardiomyopathy but the last echocardiogram in our office showed an ejection fraction of 50% and she has never been carried as having a history of congestive failure. She does have mild chronic kidney disease. She presents now complaining of mild shortness of breath that appears to be better since admission. It was mild, persistent and chronic but associated with a cough of productive yellow sputum for a couple of days. She denies symptoms of angina pectoris but has had a chronic continual vague heavy feeling in her chest. It is not consistent with angina as it lasts days at a the time without exacerbating features. She was felt to have possible sepsis and a pulmonary infection and she was admitted. I am asked to see year because of possible congestive failure. It should be noted her saturations are 99% on room air. She does have chronic peripheral edema, the etiology of which is not clear and in the past it has been managed by wrapping her lower extremities. At the time I see her for this evaluation, she is comfortable supine in bed and essentially asymptomatic. PHYSICAL EXAMINATION: GENERAL: On general inspection, she is an alert, pleasant, slightly deaf lady lying in bed in no distress. VITAL SIGNS: Blood pressure of 134/64, respirations of 20, heart rate 102. HEAD, EYES, EARS, NOSE, THROAT/NECK: Unremarkable for the patient's age. I cannot exclude jugular venous distention as she has a very thick short neck but there is no obvious or overt jugular venous distention. LUNGS: Clear to auscultation but diminished at the bases. CARDIOVASCULAR: Regular rate and rhythm. There is a 3/6 moderately protracted systolic ejection murmur. S1 and S2 are unremarkable. ABDOMEN: Abdomen soft without masses or tenderness. Bowel sounds present. GENITALIA/RECTAL: Deferred. EXTREMITIES: Trace edema. NEUROLOGIC: Grossly intact without focal findings. LABORATORY DATA: CBC is unremarkable. The lactic acid remains elevated. Creatinine is down to 1.8. Potassium is elevated at 5.8. INR is 1.6. EKGS: EKG shows right bundle branch block with minimal nonspecific S-T-T wave changes. IMAGING STUDIES: VQ scan is low probability. Chest x-ray shows no abnormality. ASSESSMENT AND PLAN: Essentially the patient presents without convincing cardiac problems. I do not have any issue with resuming her chronic medications but I would avoid any aggressive diuresis as I am not convinced in the absence of symptoms and with a negative chest x-ray that she has any left-sided failure. 1. I will go ahead and repeat the echocardiographic study. 2. The potassium of 5.8 is a worry. I will go ahead and repeat a potassium tonight. We may need to get nephrology involved if it remains elevated. I do not see any potassium supplements on her regimen. She has been getting normal saline boluses without provoking pulmonary edema and that also speaks against the likelihood of congestive heart failure. 3. She has significant medical problems including severe pulmonary hypertension, so again, I would avoid over diuresis but at present we should just manage her cautiously and conservatively as she is quite stable. 4. Echocardiogram to be repeated but I am certain this finding of a cardiomyopathy is accurate, although she has a loud murmur that has not been previously described. Subsequent therapy to be determined. Will follow with you. MD SHANIQUE Mireles/DRISS /4:36 PM /5:18 PM
--- NOTE | 2016-03-29 17:43 | PD.CONS ---
HPI Consult Requested By Reason for Consult Acute on chronic renal insufficiency Primary Care Physician Non-Staff History of Present Illness This patient is 80-year-old female apparently this dose to Dr. Bey's office for care of chronic kidney disease. Patient has a history of coronary artery disease, hypertension, congestive heart failure with an ejection fraction said to be 30-40% as well as sleep apnea. As best I can make out a baseline creatinine level may be close to 1.25. Patient now presents with complaints of shortness of breath and a CAT scan which may be suggestive of diverticulitis. Patient has fecal signs of sepsis and worsening renal function, metabolic acidosis and hyperkalemia at this point in time. No blood gas currently available but total CO2 low on BMP. Patient herself is a poor historian. Review of Systems ROS Limitations: Poor Historian Past Family Social History Allergies: Coded Allergies: Benadryl (Verified Allergy, Severe, 05/17/15) anaphylactic Lasix (Verified Allergy, Severe, 05/17/15) causes throat to swell Norpramin (Verified Allergy, Severe, 05/17/15) causes severe anger Percocet (Verified Allergy, Severe, 05/17/15) causes skin irritation Pineapple (Verified Allergy, Severe, 05/17/15) anaphylactic Latex (Unverified Allergy, Intermediate, Rash, 05/17/15) Past Medical History CKD Coronary artery disease Paroxysmal atrophic fibrillation Hypertension Cardiomyopathy with ejection fraction said to be 30-40% Breast carcinoma by history. Diverticulosis in the past. Sleep apnea. Nephrolithiasis. Mention of severe pulmonary hypertension and the records. Past Surgical History Colonic resection for diverticulitis. Reported Medications Reported Meds & Active Scripts Active Reported Allopurinol 100 Mg Tab 100 Mg PO DAILY Gabapentin 100 Mg Cap 100 Mg PO BID Prilosec (Omeprazole) 20 Mg Cap 20 Mg PO DAILY Aspirin EC (Aspirin) 81 Mg Tabdr 81 Mg PO DAILY Coreg (Carvedilol) 6.25 Mg Tab 6.25 Mg PO DAILY Bumex (Bumetanide) 1 Mg Tab 1 Mg PO DAILY Atorvastatin (Atorvastatin Calcium) 40 Mg Tab 40 Mg PO HS Plavix (Clopidogrel Bisulfate) 75 Mg Tab 75 Mg PO DAILY Novolog Inj (Insulin Aspart) 1,000 Unit/10 Ml Vial 1-20 Units SQ ACHS Max dose at bedtime:( )units; sugars less than 70,(0)units; sugars 150-199,(1) unit; sugars 200-249,(3) units; sugars 250-299,(5) units; sugars 300-349,(7) units; sugars greater than 349,(9) units Trazodone (Trazodone HCl) 100 Mg Tab 100 Mg PO HS Lantus Inj (Insulin Glargine) 1,000 Unit/10 Ml Vial 8 Units SQ BID Levothyroxine (Levothyroxine Sodium) 112 Mcg Tab 112 Mcg PO DAILY Proventil Hfa 6.7 GM Inh (Albuterol Sulfate) 90 Mcg/Act Aer 2.5 Puff INH Q4H PRN Albuterol (Albuterol Sulfate) 2 Mg Tab 2 Mg PO TID Active Ordered Medications Inpatient Medications Acetaminophen (Tylenol) 650 mg Q4H PRN PO TEMP > 100.4; Start 03/29/16 at 10: 15 Albuterol Sulfate (Proair Hfa Inh) 2.5 puff Q4H PRN INH SHORTNESS OF BREATH; Start 03/28/16 at 22:45 Albuterol/ Ipratropium 1 ampule 1 ampule Q15M INH Last administered on at 17:11; Start 03/28/16 at 17:00; Stop 03/28/16 at 17:31; Status DC Aspirin (Ecotrin Ec) 81 mg DAILY PO Last administered on 03/29/16at 08:42; Start 03/29/16 at 09:00 Atorvastatin Calcium (Lipitor) 40 mg HS PO ; Start 03/29/16 at 21:00 Bisacodyl (Dulcolax Supp) 10 mg DAILY PRN CA CONSTIPATION; Start 03/29/16 at 10:15 Cefepime HCl/ Sodium Chloride (Maxipime Inj/NS Inj) 100 ml @ 200 mls/hr Q12HR IV Last administered on 03/29/16at 08:48; Start 03/29/16 at 09:00 Chlorhexidine Gluconate (Chlorhexidine 2% Cloth) 3 pack UNSCH PRN TOP HYGIENIC CARE; Start 03/29/16 at 02:00 Clopidogrel Bisulfate (Plavix) 75 mg DAILY PO Last administered on 03/29/16at 08:42; Start 03/29/16 at 09:00 Dextrose (D50w (Vial) Inj) 25 ml UNSCH PRN IV PUSH HYPOGLYCEMIA-SEE COMMENTS; Start 03/28/16 at 22:45 Gabapentin (Neurontin) 100 mg BID PO Last administered on 03/29/16at 08:42; Start 03/29/16 at 09:00 Glucagon (Glucagon Inj) 1 mg UNSCH PRN OTHER HYPOGLYCEMIA-SEE COMMENTS; Start 03/28/16 at 22:45 Guaifenesin 600 mg 600 mg BID PO Last administered on 03/29/16at 08:42; Start 03/29/16 at 09:00 Insulin Aspart 1 1 ACHS SLIDING SCALE SQ Last administered on 03/29/16at 06:44 ; Start 03/29/16 at 07:00 IV Flush (NS Flush) 2 ml BID FLUSH ; Start 03/29/16 at 21:00 Magnesium Hydroxide (Milk Of Magnesia Liq) 30 ml Q12H PRN PO CONSTIPATION; Start 03/29/16 at 10:15 Methylprednisolone Sodium Succinate (SoluMEDROL INJ) 125 mg ONCE ONCE IVP Last administered on 03/28/16at 17:26; Start 03/28/16 at 17:00; Stop 03/28/16 at 17:10; Status DC Miscellaneous Information 1 [id number] Last administered on 03/29/16at 02:00; Start 03/29/16 at 02:00 Morphine Sulfate (Morphine Inj) 2 mg Q3H PRN IV Pain 6-10 Last administered on 03/29/16at 14:58; Start 03/28/16 at 22:45 Mupirocin 1 applic 1 applic BID EACH NARE ; Start 03/29/16 at 21:00; Stop at 20:59 Ondansetron HCl (Zofran Inj) 4 mg Q6H PRN IVP NAUSEA OR VOMITING; Start at 10:15 Pantoprazole Sodium (Protonix Inj) 40 mg Q12H IV PUSH Last administered on at 11:23; Start 03/29/16 at 10:30 Pharmacy Profile Note 0 ml @ 0 mls/hr UNSCH OTHER ; Start 03/28/16 at 22:45 Piperacillin Sod/ Tazobactam Sod 100 ml @ 200 mls/hr ONCE STAT IV Last administered on 03/28/16at 18:36; Start 03/28/16 at 18:12; Stop 03/28/16 at 18 :41; Status DC Prochlorperazine (Compazine Supp) 25 mg Q12H PRN CA NAUSEA OR VOMITING; Start 03/29/16 at 10:15 Sennosides (Senokot) 17.2 mg Q12H PRN PO CONSTIPATION; Start 03/29/16 at 10:15 Sodium Bicarbonate/ Dextrose (Sodium Bicarbonate 8.4% Inj/D5W 1000 ml Inj) 1, 150 ml @ 100 mls/hr [id number] IV ; Start 03/29/16 at 17:30; Status UNV Sodium Chloride 500 ml @ 500 mls/hr BOLUS ONCE IV Last administered on at 13:45; Start 03/29/16 at 13:45; Stop 03/29/16 at 14:44; Status DC Sodium Chloride (NS 1000 ml Inj) 1,000 ml @ 100 mls/hr Q10H IV Last administered on 03/29/16at 08:41; Start 03/28/16 at 22:31; Stop 03/29/16 at 17 :28; Status DC Trazodone HCl 100 mg 100 mg HS PO ; Start 03/29/16 at 21:00 Vancomycin HCl 1000 mg/Sodium Chloride 250 ml @ 250 mls/hr ONCE STAT IV Last administered on 03/28/16at 18:37; Start 03/28/16 at 18:12; Stop 03/28/16 at 19 :11; Status DC Vancomycin HCl/ Sodium Chloride (Vancomycin Inj/ NS 250 ml Inj) 250 ml @ 250 mls/hr ONCE ONCE IV Last administered on 03/28/16at 22:55; Start 03/28/16 at 22:45; Stop 03/28/16 at 23:44; Status DC Vancomycin HCl/ Sodium Chloride (Vancomycin Inj/ NS 500 ml Inj) 515 ml @ 257.5 mls/ hr ONCE IV ; Start 03/30/16 at 23:00; Stop 03/31/16 at 00:59 Family History Non-obtainable from patient. Social History Non-obtainable from patient. Physical Exam Vital Signs Vital Signs Date Time Temp Pulse Resp B/P Pulse Ox O2 Delivery O2 Flow Rate FiO2 03/29/16 15:03 20 03/29/16 14:00 105 03/29/16 12:00 113 03/29/16 12:00 98.0 113 26 134/64 100 03/29/16 10:31 99 Nasal Cannula 2.00 03/29/16 10:00 105 03/29/16 08:00 97.7 109 17 140/67 100 03/29/16 08:00 108 03/29/16 07:00 Nasal Cannula 2.00 03/29/16 06:00 110 03/29/16 05:35 97 03/29/16 05:35 97.4 110 22 129/61 99 03/29/16 04:41 114 21 127/61 99 Nasal Cannula 2 03/29/16 02:12 119 22 130/59 100 Nasal Cannula 2 03/28/16 22:44 120 21 137/75 100 Nasal Cannula 2 03/28/16 20:55 112 21 141/68 98 Room Air 03/28/16 19:39 124 99 2 03/28/16 19:38 98.1 125 24 147/79 99 Room Air Physical Exam GENERAL: Elderly female not in respiratory distress but who does appear to be somewhat anxious but responding to simple questions and commands. SKIN: Warm and dry. HEAD: Normocephalic. EYES: No scleral icterus. No injection or drainage. NECK: Supple, trachea midline. No JVD or lymphadenopathy. CARDIOVASCULAR: Regular rate and rhythm without murmurs, gallops, or rubs. RESPIRATORY: Breath sounds equal bilaterally. No accessory muscle use. GASTROINTESTINAL: Abdomen soft, non-tender, nondistended. MUSCULOSKELETAL: No cyanosis, trace edema lower extremities. BACK: Nontender without obvious deformity. No CVA tenderness. Laboratory Laboratory Tests Test 03/28/16 03/28/16 03/28/16 03/29/16 17:45 18:25 19:45 00:50 Prothrombin Time 17.7 Prothromb Time International 1.6 Ratio Activated Partial 29.6 Thromboplast Time Urine Color YELLOW Urine Turbidity CLEAR Urine pH 5.0 Urine Specific [place] 1.010 Urine Protein NEG Urine Glucose (UA) NEG Urine Ketones NEG Urine Occult Blood NEG Urine Nitrite NEG Urine Bilirubin NEG Urine Urobilinogen LESS THAN 2.0 Urine Leukocyte Esterase NEG Urine Amorphous Sediment OCC Microscopic Urinalysis Comment CATH-CULT NOT IND Lactic Acid Level 5.7 8.9 Sodium Level 138 Potassium Level 4.9 Chloride Level 102 Carbon Dioxide Level 19.0 Anion Gap 17 Blood Urea Nitrogen 24 Creatinine 1.94 Estimat Glomerular Filtration 25 Rate Random Glucose 165 Calcium Level 7.7 Total Bilirubin 1.7 Aspartate Amino Transf 41 (AST/SGOT) Alanine Aminotransferase 12 (ALT/SGPT) Alkaline Phosphatase 197 Total Protein 7.7 Albumin 2.7 Test 03/29/16 03/29/16 05:36 10:42 Nasal Screen MRSA (PCR) POSITIVE White Blood Count 6.2 Red Blood Count 3.72 Hemoglobin 12.4 Hematocrit 39.2 Mean Corpuscular Volume 105.3 Mean Corpuscular Hemoglobin 33.2 Mean Corpuscular Hemoglobin 31.5 Concent Red Cell Distribution Width 19.8 Platelet Count 97 Mean Platelet Volume 8.4 Neutrophils (%) (Auto) 81.8 Lymphocytes (%) (Auto) 11.5 Monocytes (%) (Auto) 6.4 Eosinophils (%) (Auto) 0.0 Basophils (%) (Auto) 0.3 Neutrophils # (Auto) 5.0 Lymphocytes # (Auto) 0.7 Monocytes # (Auto) 0.4 Eosinophils # (Auto) 0.0 Basophils # (Auto) 0.0 CBC Comment AUTO DIFF Differential Comment AUTO DIFF CONFIRMED Platelet Estimate LOW Platelet Morphology Comment NORMAL Polychromasia 2.3 Sodium Level 134 Potassium Level 5.8 Chloride Level 101 Carbon Dioxide Level 15.4 Anion Gap 18 Blood Urea Nitrogen 28 Creatinine 1.80 Estimat Glomerular Filtration 27 Rate Random Glucose 151 Lactic Acid Level 8.3 Calcium Level 7.6 Total Bilirubin 2.0 Aspartate Amino Transf 73 (AST/SGOT) Alanine Aminotransferase 18 (ALT/SGPT) Alkaline Phosphatase 181 Total Protein 7.1 Albumin 2.4 Date/Time Procedure Status Source Growth 03/29/16 00:50 Influenza Types A,B Antigen (TED) - Final Complete Nasal Washing NEGATIVE FOR FLU A AND B ANTIGEN.... 03/28/16 14:05 Aerobic Blood Culture - Preliminary Resulted Blood Peripheral NO GROWTH IN 1 DAY 03/28/16 14:05 Anaerobic Blood Culture - Preliminary Resulted Blood Peripheral NO GROWTH IN 1 DAY Result Diagram: 03/29/16 1042 03/29/16 1042 Imaging Last 48 hours Impressions Renal Ultrasound 03/29/16 0000 Signed Impressions: Service Date/Time: Tuesday, March 29, 2016 12:11 - CONCLUSION: 1. Right renal cyst. 2. Bladder not visualized. José Miguel Louis MD Lower Extremity Ultrasound 03/29/16 0000 Signed Impressions: Service Date/Time: Tuesday, March 29, 2016 11:52 - CONCLUSION: Normal examination. José Miguel Louis MD Lung Scan-V Nuclear Medicine 03/28/162023 Signed Impressions: Service Date/Time: Monday, March 28, 2016 21:31 - CONCLUSION: Low probability for pulmonary embolism. Vipin Magdaleno MD Abdomen/Pelvis CT 03/28/16 1841 Signed Impressions: Service Date/Time: Monday, March 28, 2016 18:52 - CONCLUSION: 1. Diverticulosis of the sigmoid colon, cannot exclude diverticulitis. 2. Small amount of abdominal ascites. 3. Small left pleural effusion. 4. Ventral wall hernia containing fat along the left abdominal wall. 5. Cholecystectomy. 6. Anasarca. 7. LAP band procedure. Vpiin Magdaleno MD Chest X-Ray 03/28/16 1333 Signed Impressions: Service Date/Time: Monday, March 28, 2016 14:49 - CONCLUSION: No acute pulmonary infiltrates. No significant change. Raul Zamora MD Assessment and Plan Problem List: (1) Acute kidney insufficiency Plan: Most likely secondary to septic syndrome. Remains be established will not patient has developed established acute kidney injury which may result in progressive azotemia. Patient not frankly fluid overloaded clinically. Will need to hydrate her add sodium bicarbonate to fluids to improve acid-base status and hyperkalemia. Medications should be adjusted for the patient's estimated GFR if clinically indicated. Avoid agents with significant potential for nephrotoxicity possible including NSAIDs for analgesia, iodine contrast agents. Gadolinium is contraindicated if the GFR is below 30. Will be following the patient up until this Thursday, March 31, [address] Bey will be taking over care of this patient. (2) Hyperkalemia Plan: Secondary to CKD, acute renal insufficiency and metabolic acidosis. Repeat potassium level pending. If still significantly elevated will utilize albuterol and possibly Kayexalate. (3) Metabolic acidosis Plan: Secondary to sepsis with lactic acidosis and associated acute kidney insufficiency. (4) CKD (chronic kidney disease) stage 3, GFR 30-59 ml/min Plan: Most likely secondary to nephrosclerosis of hypertension and aging. Rd Pool MD Mar 29, 2016 17:43
[2016-03-29] MEDS: SODIUM BICARBONATE 8.4% INJ 150 MEQ in DEXTROSE 5% IN WATE 1000ML INJ 850 ML IV SCH ×2 (18:27)
[2016-03-29] MEDS: MUPIROCIN 2% OINT 1 APPLIC/GM SYR EACH NARE SCH (20:11)
[2016-03-29] MEDS: ATORVASTATIN 40 MG TAB PO SCH (20:12)
[2016-03-29] MEDS: traZODone HCL 100 MG TAB PO SCH (20:30)
[2016-03-29 21:11] LABS: BICARBONATE 19.6 MEQ/L (21.0-32.0); POTASSIUM 4.6 MEQ/L (3.5-5.1)
[2016-03-29 21:26] LABS: CALCIUM-PROTEIN CORRECTED 7.1 MG/DL (8.5-10.1)
[2016-03-29] MEDS ORDERED: hydrOXYzine HCL 25 MG TAB PO ONE (21:30)
[2016-03-29] MEDS ORDERED: CALCIUM GLUCONATE INJ 1 GM in SODIUM CHLORIDE 0.9% INJ 90 ML IV ONE (21:45)
[2016-03-29] MEDS: CALCIUM CARBONATE 1.25 GM (CA 500 MG) TAB PO SCH (22:11)
[2016-03-29] MEDS ORDERED: POTASSIUM CHLOR 20 MEQ PREMIX 100 ML IV PRN ×2 (22:45)
[2016-03-29] MEDS ORDERED: POTASSIUM CHLOR 40 MEQ PREMIX 100 ML IV PRN ×2 (22:45)
[2016-03-29] MEDS ORDERED: POTASSIUM CL 40 MEQ/30 ML LIQ UDC PO/TUBE PRN ×2 (22:45)
[2016-03-29] MEDS ORDERED: POTASSIUM PHOSPHATE MONOBASIC 500 MG TAB PO PRN (22:45)
[2016-03-29] MEDS ORDERED: POTASSIUM PHOSPHATE MONOBASIC 500 MG TAB PO/TUBE PRN (22:45)
[2016-03-29] MEDS ORDERED: POTASSIUM PHOSPHATE INJ 30 MMOL in SODIUM CHLOR 0.9% 250 ML INJ 250 ML IV PRN (22:45)
[2016-03-29] MEDS ORDERED: MAGNESIUM SULFATE INJ 4 GM in SODIUM CHLORIDE 0.9% INJ 92 ML IV PRN (22:45)
[2016-03-29] MEDS ORDERED: MAGNESIUM SULFATE INJ 2 GM in SODIUM CHLORIDE 0.9% INJ 96 ML IV PRN (22:45)
[2016-03-29] MEDS ORDERED: MAGNESIUM OXIDE 400 MG TAB PO PRN (22:45)
[2016-03-29] MEDS ORDERED: SODIUM PHOSPHATE INJ 30 MMOL in SODIUM CHLOR 0.9% 250 ML INJ 240 ML IV PRN (22:45)
[2016-03-29] MEDS: MAGNESIUM SULFATE 1 GM PREMIX 100 ML IV SCH (23:55)
[2016-03-30] VITALS (14 sets, daily range): BP systolic 109–136; BP diastolic 52–67; PULSE 92–106; RESP 13–23; TEMP 97.4–97.9; O2SAT 97–100
[2016-03-30] MEDS: MAGNESIUM SULFATE 1 GM PREMIX 100 ML IV SCH (01:29)
[2016-03-30] MEDS: CHLORHEXIDINE GLUCONATE 2 % 1 PACK (2 CLOTHS) TOP SCH (03:51)
[2016-03-30] MEDS: SODIUM BICARBONATE 8.4% INJ 150 MEQ in DEXTROSE 5% IN WATE 1000ML INJ 850 ML IV SCH ×4 (03:51→13:54)
[2016-03-30] MEDS ORDERED: SODIUM CHLORID 0.9% 500 ML INJ 500 ML IV ONE (05:30)
[2016-03-30 05:32] LABS: AUTOMATED NEUTROPHIL # 11.6 TH/MM3 (1.8-7.7); BASOPHIL % 0.2 % (0.0-2.0); HEMATOCRIT 37.1 % (35.0-46.0); HEMO FLAGS DIFF FINAL; LYMPH % 5.9 % (9.0-44.0); LYMPHOCYTE # 0.8 TH/MM3 (1.0-4.8); MEAN CELL VOLUME 105.8 FL (80.0-100.0); MEAN CORPUSCULAR HEMOGLOBIN 33.5 PG (27.0-34.0); MEAN CORPUSCULAR HGB CONC 31.6 % (32.0-36.0); MONO % 6.9 % (0.0-8.0); PLATELET COUNT 104 TH/MM3 (150-450); RED CELL DISTRIBUTION WIDTH 19.5 % (11.6-17.2); WHITE BLOOD COUNT 13.3 TH/MM3 (4.0-11.0)
[2016-03-30 05:36] LABS: BICARBONATE 23.3 MEQ/L (21.0-32.0); MAGNESIUM 1.7 MG/DL (1.5-2.5)
[2016-03-30 05:59] LABS: POTASSIUM 4.7 MEQ/L (3.5-5.1)
[2016-03-30] MEDS: INSULIN ASPART SUPPLEMENTAL SCALE SQ SCH ×4 (06:15→21:58)
[2016-03-30 06:22] LABS: CALCIUM-PROTEIN CORRECTED 7.7 MG/DL (8.5-10.1)
[2016-03-30 07:08] LABS: LACTIC ACID GHOST NOT REPORTABLE
[2016-03-30] MEDS: CLOPIDOGREL 75 MG TAB PO SCH (08:23)
[2016-03-30] MEDS: ASPIRIN EC 81 MG TABEC PO SCH (08:23)
[2016-03-30] MEDS: guaiFENesin E.R. 600 MG TAB PO SCH ×2 (08:23→21:58)
[2016-03-30] MEDS: GABAPENTIN 100 MG CAP PO SCH ×2 (08:23→21:58)
[2016-03-30] MEDS: CALCIUM CARBONATE 1.25 GM (CA 500 MG) TAB PO SCH ×2 (08:23→21:58)
[2016-03-30] MEDS: CEFEPIME INJ 1,000 MG in SODIUM CHLORIDE 0.9% INJ 100 ML IV SCH ×2 (08:24→21:58)
[2016-03-30] MEDS: SODIUM CHLORIDE 0.9% FLUSH 5 ML FLUSH FLUSH SCH ×2 (08:24→21:59)
[2016-03-30] MEDS: MUPIROCIN 2% OINT 1 APPLIC/GM SYR EACH NARE SCH ×2 (08:24→21:59)
--- NOTE | 2016-03-30 08:36 | HHI.PR ---
Subjective Remarks LA improving. Urine output not improving significantly. No cp, sob, n/v/d/c. Patient has visual hallucinations on/off. She is alert and oriented x3. She complaints of feeling weak, has productive cough, No fevers or chills. Objective Vitals Vital Signs Date Time Temp Pulse Resp B/P Pulse Ox O2 Delivery O2 Flow Rate FiO2 03/30/16 06:00 99 03/30/16 04:00 97.5 101 23 136/60 100 03/30/16 04:00 101 03/30/16 02:00 102 03/30/16 00:00 100 03/30/16 00:00 97.8 102 19 136/67 99 03/29/16 22:00 99 03/29/16 20:56 16 03/29/16 20:00 97.5 102 13 129/64 100 03/29/16 20:00 100 03/29/16 19:58 99 Nasal Cannula 2.00 03/29/16 19:00 Nasal Cannula 2.00 03/29/16 18:00 100 03/29/16 16:00 100 03/29/16 16:00 97.9 98 21 131/66 99 03/29/16 14:00 105 03/29/16 12:00 113 03/29/16 12:00 98.0 113 26 134/64 100 03/29/16 10:31 99 Nasal Cannula 2.00 03/29/16 10:00 105 I/O 03/29/16 03/29/16 03/29/16 03/30/16 03/30/16 03/30/16 07:00 15:00 23:00 07:00 15:00 23:00 Intake Total 1067 ml 2034 ml 1180 ml 1679 ml Output Total 300 ml 75 ml 50 ml 100 ml Balance 767 ml 1959 ml 1130 ml 1579 ml Intake Oral 240 ml 360 ml 480 ml 240 ml IV Total 827 ml 1674 ml 700 ml 1439 ml Output Urine Total 300 ml 75 ml 50 ml 100 ml # Bowel Movements 1 0 0 0 Result Diagram: 03/30/16 0456 03/30/16 0456 Imaging Last Impressions Renal Ultrasound 03/29/16 0000 Signed Impressions: Service Date/Time: Tuesday, March 29, 2016 12:11 - CONCLUSION: 1. Right renal cyst. 2. Bladder not visualized. José Miguel Louis MD Lower Extremity Ultrasound 03/29/16 0000 Signed Impressions: Service Date/Time: Tuesday, March 29, 2016 11:52 - CONCLUSION: Normal examination. José Miguel Louis MD Lung Scan-V Nuclear Medicine 03/28/162023 Signed Impressions: Service Date/Time: Monday, March 28, 2016 21:31 - CONCLUSION: Low probability for pulmonary embolism. Vipin Magdaleno MD Abdomen/Pelvis CT 03/28/16 1841 Signed Impressions: Service Date/Time: Monday, March 28, 2016 18:52 - CONCLUSION: 1. Diverticulosis of the sigmoid colon, cannot exclude diverticulitis. 2. Small amount of abdominal ascites. 3. Small left pleural effusion. 4. Ventral wall hernia containing fat along the left abdominal wall. 5. Cholecystectomy. 6. Anasarca. 7. LAP band procedure. Vipin Magdaleno MD Chest X-Ray 03/28/16 1333 Signed Impressions: Service Date/Time: Monday, March 28, 2016 14:49 - CONCLUSION: No acute pulmonary infiltrates. No significant change. Raul Zamora MD Objective Remarks GENERAL: Elderly female appears acutely ill. HEENT: PERRLA, EOMI. No scleral icterus or conjunctival pallor. No lid lag or facial droop. CARDIOVASCULAR: Regular rate and rhythm. No obvious murmurs to auscultation. No chest tenderness to palpation. RESPIRATORY: Scattered rhonchi and wheezing. With sob. GASTROINTESTINAL: Abdomen soft, non-tender, nondistended. BS normal. MUSCULOSKELETAL: Extremities without clubbing, cyanosis, or edema. No obvious deformities. NEUROLOGICAL: Awake, alert. No focal neurologic deficits. Moving both upper and lower extremities spontaneously. A/P Problem List: (1) Sepsis ICD Code: A41.9 Status: Acute (2) DM (diabetes mellitus) ICD Code: E11.9 Status: Acute (3) HTN (hypertension) ICD Code: I10 Status: Acute (4) CHF (congestive heart failure) ICD Code: I50.9 Status: Acute Assessment and Plan Septic syndrom. Lactic acidosis. HR 120's, RR 24. Lactic Acid 5.5 on admission and continued to trend up. LA 03/30/16 2.9. Source-suspected intra- abdominal source. S/p Blood Cultures and IV Vanc/Zosyn in ER. Check Sputum cultures in light of productive cough. Continue w/ Vanc/Cefepime. CXR negative , images reviewed. CT Abd/Pelvis w/ possible diverticulitis, images reviewed. IVF, caution w/ CHF. Repeat lactic acid, repeat labs. Duonebs as need and scheduled. Add steroids. Taper duonebs and steroids as tolerated. ICU delirium. Patient with visual hallucinations on/off. Diverticulitis. Rectal bleeding (per patient): Start pantoprazol IV. FOBT. Monitor H/H. Consult GI specialist. Systolic CHF: Acute on Chronic. EF 30-40% per records from 09/2015. Hold Bumex as patient with low UOP, caution w/ Sepsis. BNP 2608 on admission. Improving. Consult Dr Lazo her cardiology DR VARGAS with low UOP. UA neg, renal US reviewed. Consult nephrology. On hold bumex.. Give gentle hydration, add bicarb. Monitor kidney function and UOP. Hyperkalemia: Monitor. Repeat level back to normal. Hypomagnesemia. Monitor and replace. DM2: Sliding scale w/ Accu-Cheks. Resume home Lantus once taking adequate PO. HTN: Controlled. Hold antihypertensives in light of sepsis, monitor BP. DVT Prophylaxis: SCD/Teds. Case management consulted for d/c planning as needed. Discussed with the patient, ICU nurse Problem Qualifiers (1) Sepsis: Qualified Code: A41.9 - Sepsis, due to unspecified organism Chapis Vang MD Mar 30, 2016 08:35
--- NOTE | 2016-03-30 09:47 | HHI.GIFU ---
Subjective Remarks Still has mild LLQ abdominal tenderness, has productive cough, C/O nausea when drinking water, no stools and no signs of bleeding (Era James) Objective Vitals I&O Vital Signs Date Time Temp Pulse Resp B/P Pulse Ox O2 Delivery O2 Flow Rate FiO2 03/30/16 06:00 99 03/30/16 04:00 97.5 101 23 136/60 100 03/30/16 04:00 101 03/30/16 02:00 102 03/30/16 00:00 100 03/30/16 00:00 97.8 102 19 136/67 99 03/29/16 22:00 99 03/29/16 20:56 16 03/29/16 20:00 97.5 102 13 129/64 100 03/29/16 20:00 100 03/29/16 19:58 99 Nasal Cannula 2.00 03/29/16 19:00 Nasal Cannula 2.00 03/29/16 18:00 100 03/29/16 16:00 100 03/29/16 16:00 97.9 98 21 131/66 99 03/29/16 14:00 105 03/29/16 12:00 113 03/29/16 12:00 98.0 113 26 134/64 100 03/29/16 10:31 99 Nasal Cannula 2.00 03/29/16 10:00 105 I/O 03/29/16 03/29/16 03/29/16 03/30/16 03/30/16 03/30/16 07:00 15:00 23:00 07:00 15:00 23:00 Intake Total 1067 ml 2034 ml 1180 ml 1679 ml Output Total 300 ml 75 ml 50 ml 100 ml Balance 767 ml 1959 ml 1130 ml 1579 ml Intake Oral 240 ml 360 ml 480 ml 240 ml IV Total 827 ml 1674 ml 700 ml 1439 ml Output Urine Total 300 ml 75 ml 50 ml 100 ml # Bowel Movements 1 0 0 0 Laboratory Laboratory Tests Test 03/29/16 03/29/16 03/29/16 03/30/16 10:42 18:30 20:30 04:56 White Blood Count 6.2 13.3 Red Blood Count 3.72 3.50 Hemoglobin 12.4 11.7 Hematocrit 39.2 37.1 Mean Corpuscular Volume 105.3 105.8 Mean Corpuscular Hemoglobin 33.2 33.5 Mean Corpuscular Hemoglobin 31.5 31.6 Concent Red Cell Distribution Width 19.8 19.5 Platelet Count 97 104 Mean Platelet Volume 8.4 8.9 Neutrophils (%) (Auto) 81.8 87.0 Lymphocytes (%) (Auto) 11.5 5.9 Monocytes (%) (Auto) 6.4 6.9 Eosinophils (%) (Auto) 0.0 0.0 Basophils (%) (Auto) 0.3 0.2 Neutrophils # (Auto) 5.0 11.6 Lymphocytes # (Auto) 0.7 0.8 Monocytes # (Auto) 0.4 0.9 Eosinophils # (Auto) 0.0 0.0 Basophils # (Auto) 0.0 0.0 CBC Comment AUTO DIFF DIFF FINAL Differential Comment AUTO DIFF CONFIRMED Platelet Estimate LOW Platelet Morphology Comment NORMAL Polychromasia 2.3 Sodium Level 134 133 134 Potassium Level 5.8 4.6 4.7 Chloride Level 101 99 99 Carbon Dioxide Level 15.4 19.6 23.3 Anion Gap 18 14 12 Blood Urea Nitrogen 28 33 39 Creatinine 1.80 1.83 1.97 Estimat Glomerular Filtration 27 27 24 Rate Random Glucose 151 191 285 Lactic Acid Level 8.3 4.4 2.8 Calcium Level 7.6 7.2 7.4 Total Bilirubin 2.0 Aspartate Amino Transf 73 (AST/SGOT) Alanine Aminotransferase 18 (ALT/SGPT) Alkaline Phosphatase 181 Total Protein 7.1 7.4 6.6 Albumin 2.4 Urine Eosinophils FEW Urine Random Sodium 17 Protein Corrected Calcium 7.1 7.7 Magnesium Level 1.2 1.7 Phosphorus Level 4.9 Random Vancomycin Level 15.4 Complement C3 69 Complement C4 11 Date/Time Procedure Status Source Growth 03/30/16 01:33 Legionella Antigen Received Urine Random Urine Pending 03/30/16 01:33 Streptococcus pneumoniae Antigen (M Received Urine Random Urine Pending 03/29/16 00:50 Influenza Types A,B Antigen (TED) - Final Complete Nasal Washing NEGATIVE FOR FLU A AND B ANTIGEN.... 03/28/16 14:05 Aerobic Blood Culture - Preliminary Resulted Blood Peripheral NO GROWTH IN 1 DAY 03/28/16 14:05 Anaerobic Blood Culture - Preliminary Resulted Blood Peripheral NO GROWTH IN 1 DAY Imaging Last 48 hours Impressions Renal Ultrasound 03/29/16 0000 Signed Impressions: Service Date/Time: Tuesday, March 29, 2016 12:11 - CONCLUSION: 1. Right renal cyst. 2. Bladder not visualized. José Miguel Louis MD Lower Extremity Ultrasound 03/29/16 0000 Signed Impressions: Service Date/Time: Tuesday, March 29, 2016 11:52 - CONCLUSION: Normal examination. José Miguel Louis MD Lung Scan-V Nuclear Medicine 03/28/162023 Signed Impressions: Service Date/Time: Monday, March 28, 2016 21:31 - CONCLUSION: Low probability for pulmonary embolism. Vipin Magdaleno MD Abdomen/Pelvis CT 03/28/16 1841 Signed Impressions: Service Date/Time: Monday, March 28, 2016 18:52 - CONCLUSION: 1. Diverticulosis of the sigmoid colon, cannot exclude diverticulitis. 2. Small amount of abdominal ascites. 3. Small left pleural effusion. 4. Ventral wall hernia containing fat along the left abdominal wall. 5. Cholecystectomy. 6. Anasarca. 7. LAP band procedure. Vipin Magdaleno MD Chest X-Ray 03/28/16 1333 Signed Impressions: Service Date/Time: Monday, March 28, 2016 14:49 - CONCLUSION: No acute pulmonary infiltrates. No significant change. Raul Zamora MD Physical Exam HEENT: Pupils round and reactive to light; normocephalic; atraumatic; no jaundice. Throat is clear. NECK: Neck is supple, no JVD, no lymphadenopathy. CHEST: Chest is clear to auscultation and percussion. CARDIAC: Regular rate and rhythm with no murmur gallop or rubs. ABDOMEN: Soft, nondistended, tender LLQ; no hepatosplenomegaly; bowel sounds are present in all four quadrants. EXTREMITIES: No clubbing, cyanosis, + trace edema. SKIN: Normal; no rash; no jaundice. COBOL PROGRAMMER: No focal deficits; alert and oriented times three. (Era James) Assessment and Plan Assessment: (1) GI bleed Plan: Patient reported small amount blood in stool in ED No stools today, no signs of bleeding today FOBT is pending to be done with next BM H&h is stable at 12.9/40 (2) Diverticulitis Plan: CT abd/eplvis showed possible diverticulosis and possible diverticulitis suspected intra-abdominal infection continue antibiotics (3) Chronic anticoagulation Plan: patient is on Plavix (4) Sepsis Plan: Follow by PCP On antibiotics Plan This is a 80 year old female with possible GI bleed, she is on Plavix. Has underlying diverticulitis and has been started on antibiotics. Last colonoscopy was done 2 years ago along with EGD she thinks both procedures were normal and was told she would need another colonoscopy, she does have a Hx of GERD on Omeprazole. C/O abdominal pain in periumbilcal and LLQ area. No bleeding since admission and H&H is stable. If any further bleeding is seen and has positive fecal occult blood she will need a colonoscopy when diverticulitis is stable and she has been off of Plavix for at least 4 days. She should continue PPI's, she does have a family Hx of colon cancer in her father 03/30/16----No signs of bleeding, will check stools for occult blood, still has C/ O LLQ abdominal tenderness and nausea with drinking water, has productive cough , no vomiting, no diarrhea. H&H mild drop from 12.4/39.2 to 11.7/37.1. Plan -Guiac stools -Follow H&H -Call GI for any bleeding -Continue antibiotics for diverticulitis -Continue PPI -No evidence of bleeding, will continue to follow -JEREMÍAS -Would need to hold Plavix for several days, if colonoscopy is needed Thank you for the consult Patient was seen and examined by Dr. Melendrez and myself, this consultation is written on his behalf. (Era James) Physician Comments Seen and examined, plan as above, no signs of GI bleeding, will follow up with you. (Osbaldo Melendrez MD) Problem Qualifiers (1) GI bleed: Qualified Code: K92.2 - Gastrointestinal hemorrhage, unspecified gastrointestinal hemorrhage type (2) Diverticulitis: Qualified Code: K57.32 - Diverticulitis of large intestine without perforation or abscess without bleeding (3) Sepsis: Qualified Code: A41.9 - Sepsis, due to unspecified organism Era James Mar 30, 2016 09:47 Osbaldo Melendrez MD Mar 30, 2016 13:00
[2016-03-30] MEDS ORDERED: VANCOMYCIN 1,500 MG/NS 500 ML IV SCH ×2 (11:00)
[2016-03-30] MEDS: PANTOPRAZOLE SODIUM 40 MG VIAL IV PUSH SCH ×2 (12:37→22:45)
--- NOTE | 2016-03-30 16:45 | PD.CARD.PN ---
Subjective Subjective Remarks Breathing is improving, patient non-compliant- not wearing O2- yet O2 sat still 95 Objective Medications Current Medications Medications (Trade) Dose Ordered Sig/[place] Route Start Time Stop Time Status Last Admin Pharmacy Profile Note 0 ml @ 0 mls/hr UNSCH OTHER 03/28/16 22:45 (Maxipime Inj/NS Inj) 100 ml @ 200 mls/hr Q12HR IV 03/29/16 09:00 03/30/16 08:24 (D50w (Vial) Inj) 25 ml UNSCH PRN IV PUSH 03/28/16 22:45 (Glucagon Inj) 1 mg UNSCH PRN OTHER 03/28/16 22:45 (Zofran Inj) 4 mg Q6H PRN IVP 03/28/16 22:45 03/29/16 21:37 (Dulcolax Supp) 10 mg DAILY PRN MT 03/28/16 22:45 (Tylenol) 650 mg Q6H PRN PO 03/28/16 22:45 (Morphine Inj) 2 mg Q3H PRN IV 03/28/16 22:45 03/29/16 20:51 (Proair Hfa Inh) 2.5 puff Q4H PRN INH 03/28/16 22:45 (Ecotrin Ec) 81 mg DAILY PO 03/29/16 09:00 03/30/16 08:23 (Lipitor) 40 mg HS PO 03/29/16 21:00 03/29/16 20:12 (Plavix) 75 mg DAILY PO 03/29/16 09:00 03/30/16 08:23 (Neurontin) 100 mg BID PO 03/29/16 09:00 03/30/16 08:23 (Desyrel) 100 mg HS PO 03/29/16 21:00 03/29/16 20:30 Miscellaneous Information 1 Q361D XX 03/29/16 02:00 03/29/16 02:00 (Chlorhexidine 2% Cloth) 3 pack Taper DAILY@04 TOP 03/29/16 04:00 03/25/17 03:59 03/30/16 03:51 (Chlorhexidine 2% Cloth) 3 pack UNSCH PRN TOP 03/29/16 02:00 Guaifenesin 600 mg 600 mg BID PO 03/29/16 09:00 03/30/16 08:23 (Vancomycin Inj/ NS 500 ml Inj) 515 ml @ 257.5 mls/ hr ONCE IV 03/30/16 11:00 03/31/16 10:59 03/30/16 12:37 (NS Flush) 2 ml UNSCH PRN FLUSH 03/29/16 10:15 (NS Flush) 2 ml BID FLUSH 03/29/16 21:00 03/30/16 08:24 (Tylenol) 650 mg Q4H PRN PO 03/29/16 10:15 (Zofran Inj) 4 mg Q6H PRN IVP 03/29/16 10:15 (Compazine Supp) 25 mg Q12H PRN MT 03/29/16 10:15 (Milk Of Magnesia Liq) 30 ml Q12H PRN PO 03/29/16 10:15 (Senokot) 17.2 mg Q12H PRN PO 03/29/16 10:15 (Protonix Inj) 40 mg Q12H IV PUSH 03/29/16 10:30 03/30/16 12:37 Mupirocin 1 applic 1 applic BID EACH NARE 03/29/16 21:00 04/05/16 20:59 03/30/16 08:24 (Sodium Bicarbonate 8.4% Inj/D5W 1000 ml Inj) 1,000 ml @ 100 mls/hr Q10H IV 03/29/16 18:00 03/30/16 13:54 Calcium Carbonate 1000 mg 1,000 mg BID PO 03/29/16 21:45 03/30/16 08:23 Potassium Chloride 100 ml @ 50 mls/hr Q2H PRN IV 03/29/16 22:45 (KCl 20 Meq Premix Inj) 100 ml @ 50 mls/hr Q2H PRN IV 03/29/16 22:45 Potassium Chloride 40 meq 40 meq UNSCH PRN PO/TUBE 03/29/16 22:45 Potassium Chloride 100 ml @ 25 mls/hr UNSCH PRN IV 03/29/16 22:45 Potassium Chloride 100 ml @ 50 mls/hr Q2H PRN IV 03/29/16 22:45 (Magnesium Sulfate Inj/NS Inj) 100 ml @ 50 mls/hr UNSCH PRN IV 03/29/16 22:45 Magnesium Oxide 800 mg 800 mg UNSCH PRN PO 03/29/16 22:45 (Magnesium Sulfate Inj/NS Inj) 100 ml @ 50 mls/hr UNSCH PRN IV 03/29/16 22:45 Potassium Phosphate 2000 mg 2,000 mg Q4H PRN PO 03/29/16 22:45 (Sodium Phosphate Inj/NS 250 ml Inj) 250 ml @ 42 mls/hr UNSCH PRN IV 03/29/16 22:45 (KCl 40 Meq/30 ml Liq) 40 meq UNSCH PRN PO/TUBE 03/29/16 22:45 Potassium Phosphate 2000 mg 2,000 mg UNSCH PRN PO/TUBE 03/29/16 22:45 (Potassium Phosphate Inj/NS 250 ml Inj) 260 ml @ 42 mls/hr UNSCH PRN IV 03/29/16 22:45 Vital Signs / I&O Vital Signs Date Time Temp Pulse Resp B/P Pulse Ox O2 Delivery O2 Flow Rate FiO2 03/30/16 15:40 98 Nasal Cannula 2.00 03/30/16 07:00 Nasal Cannula 2.00 03/30/16 06:00 99 03/30/16 04:00 97.5 101 23 136/60 100 03/30/16 04:00 101 03/30/16 02:00 102 03/30/16 00:00 100 03/30/16 00:00 97.8 102 19 136/67 99 03/29/16 22:00 99 03/29/16 20:56 16 03/29/16 20:00 97.5 102 13 129/64 100 03/29/16 20:00 100 03/29/16 19:58 99 Nasal Cannula 2.00 03/29/16 19:00 Nasal Cannula 2.00 03/29/16 18:00 100 I/O 03/29/16 03/29/16 03/29/16 03/30/16 03/30/16 03/30/16 07:00 15:00 23:00 07:00 15:00 23:00 Intake Total 1067 ml 2034 ml 1180 ml 1679 ml Output Total 300 ml 75 ml 50 ml 100 ml Balance 767 ml 1959 ml 1130 ml 1579 ml Intake Oral 240 ml 360 ml 480 ml 240 ml IV Total 827 ml 1674 ml 700 ml 1439 ml Output Urine Total 300 ml 75 ml 50 ml 100 ml # Bowel Movements 1 0 0 0 Physical Exam Lungs: coarse BS CV: RRR, HS distant Ext: trace edema Laboratory Laboratory Tests Test 03/29/16 03/29/16 03/30/16 03/30/16 18:30 20:30 04:56 09:18 Urine Eosinophils FEW /HPF Urine Random Sodium 17 MEQ/L Sodium Level 133 MEQ/L 134 MEQ/L Potassium Level 4.6 MEQ/L 4.7 MEQ/L Chloride Level 99 MEQ/L 99 MEQ/L Carbon Dioxide Level 19.6 MEQ/L 23.3 MEQ/L Anion Gap 14 MEQ/L 12 MEQ/L Blood Urea Nitrogen 33 MG/DL 39 MG/DL Creatinine 1.83 MG/DL 1.97 MG/DL Estimat Glomerular Filtration 27 ML/MIN 24 ML/MIN Rate Random Glucose 191 MG/DL 285 MG/DL Lactic Acid Level 4.4 mmol/L 2.8 mmol/L 2.9 mmol/L Calcium Level 7.2 MG/DL 7.4 MG/DL Protein Corrected Calcium 7.1 MG/DL 7.7 MG/DL Magnesium Level 1.2 MG/DL 1.7 MG/DL Total Protein 7.4 GM/DL 6.6 GM/DL White Blood Count 13.3 TH/MM3 Red Blood Count 3.50 MIL/MM3 Hemoglobin 11.7 GM/DL Hematocrit 37.1 % Mean Corpuscular Volume 105.8 FL Mean Corpuscular Hemoglobin 33.5 PG Mean Corpuscular Hemoglobin 31.6 % Concent Red Cell Distribution Width 19.5 % Platelet Count 104 TH/MM3 Mean Platelet Volume 8.9 FL Neutrophils (%) (Auto) 87.0 % Lymphocytes (%) (Auto) 5.9 % Monocytes (%) (Auto) 6.9 % Eosinophils (%) (Auto) 0.0 % Basophils (%) (Auto) 0.2 % Neutrophils # (Auto) 11.6 TH/MM3 Lymphocytes # (Auto) 0.8 TH/MM3 Monocytes # (Auto) 0.9 TH/MM3 Eosinophils # (Auto) 0.0 TH/MM3 Basophils # (Auto) 0.0 TH/MM3 CBC Comment DIFF FINAL Differential Comment Phosphorus Level 4.9 MG/DL Random Vancomycin Level 15.4 COMMENT Complement C3 69 MG/DL Complement C4 11 MG/DL Imaging Last Impressions Renal Ultrasound 03/29/16 0000 Signed Impressions: Service Date/Time: Tuesday, March 29, 2016 12:11 - CONCLUSION: 1. Right renal cyst. 2. Bladder not visualized. José Miguel Louis MD Lower Extremity Ultrasound 03/29/16 0000 Signed Impressions: Service Date/Time: Tuesday, March 29, 2016 11:52 - CONCLUSION: Normal examination. José Miguel Louis MD Lung Scan-VQ Nuclear Medicine 03/28/162023 Signed Impressions: Service Date/Time: Monday, March 28, 2016 21:31 - CONCLUSION: Low probability for pulmonary embolism. Vipin Magdaleno MD Abdomen/Pelvis CT 03/28/16 1841 Signed Impressions: Service Date/Time: Monday, March 28, 2016 18:52 - CONCLUSION: 1. Diverticulosis of the sigmoid colon, cannot exclude diverticulitis. 2. Small amount of abdominal ascites. 3. Small left pleural effusion. 4. Ventral wall hernia containing fat along the left abdominal wall. 5. Cholecystectomy. 6. Anasarca. 7. LAP band procedure. Vipin Magdaleno MD Chest X-Ray 03/28/16 1333 Signed Impressions: Service Date/Time: Monday, March 28, 2016 14:49 - CONCLUSION: No acute pulmonary infiltrates. No significant change. Raul Zamora MD Assessment and Plan Assessment and Plan Covering for Dr. Lazo 1) SOB most consistent with pulmonary etiology, but with EF 30-35%, will need bumex added back at some point. Will defer fluid management to nephrology presently. 2) Worsening renal failure- Rx per nephrology 3) Hyperkalemia- resolved 4) Hx Pulmonary Hypertension- avoid overdiuresis 5) Echo pending. Dr. Keating is available on prn basis Thursday. Dr. Lazo will return Thursday to assume cardiololgy f/u. Discussed Condition With Beverley Franklin Mar 30, 2016 16:45
--- NOTE | 2016-03-30 16:50 | HHI.NPPN ---
Subjective History of Present Illness This patient is 80-year-old female apparently this dose to Dr. Bey's office for care of chronic kidney disease. Patient has a history of coronary artery disease, hypertension, congestive heart failure with an ejection fraction said to be 30-40% as well as sleep apnea. As best I can make out a baseline creatinine level may be close to 1.25. Patient now presents with complaints of shortness of breath and a CAT scan which may be suggestive of diverticulitis. Patient has fecal signs of sepsis and worsening renal function, metabolic acidosis and hyperkalemia at this point in time. No blood gas currently available but total CO2 low on BMP. Patient herself is a poor historian. Interval History Patient appears clinically improved with no verbal complaints. Review of Systems General Constitutional: Fatigue Objective Data Data 03/29/16 03/30/16 19:00 07:00 Intake Total 2034 ml 2859 ml Output Total 75 ml 150 ml Balance 1959 ml 2709 ml Intake Oral 360 ml 720 ml IV Total 1674 ml 2139 ml Output Urine Total 75 ml 150 ml # Bowel Movements 0 0 Vital Signs Date Time Temp Pulse Resp B/P Pulse Ox O2 Delivery O2 Flow Rate FiO2 03/30/16 15:40 98 Nasal Cannula 2.00 03/30/16 07:00 Nasal Cannula 2.00 03/30/16 06:00 99 03/30/16 04:00 97.5 101 23 136/60 100 03/30/16 04:00 101 03/30/16 02:00 102 03/30/16 00:00 100 03/30/16 00:00 97.8 102 19 136/67 99 03/29/16 22:00 99 03/29/16 20:56 16 03/29/16 20:00 97.5 102 13 129/64 100 03/29/16 20:00 100 03/29/16 19:58 99 Nasal Cannula 2.00 03/29/16 19:00 Nasal Cannula 2.00 03/29/16 18:00 100 -: 03/30/16 0456 03/30/16 0456 Microbiology 03/30/16 Legionella Antigen - Final, Complete PRESUMPTIVE NEGATIVE FOR LEGIONELLA P... 03/30/16 Streptococcus pneumoniae Antigen (M - Final, Complete PRESUMPTIVE NEGATIVE FOR STREPTOCOCCU... Medication Review Current Medications Methylprednisolone Sodium Succinate (SoluMEDROL INJ) 125 mg ONCE ONCE IVP Last administered on 03/28/16at 17:26; Start 03/28/16 at 17:00; Stop 03/28/16 at 17:10; Status DC Albuterol/ Ipratropium 1 ampule 1 ampule Q15M INH Last administered on at 17:11; Start 03/28/16 at 17:00; Stop 03/28/16 at 17:31; Status DC Vancomycin HCl 1000 mg/Sodium Chloride 250 ml @ 250 mls/hr ONCE STAT IV Last administered on 03/28/16at 18:37; Start 03/28/16 at 18:12; Stop 03/28/16 at 19 :11; Status DC Piperacillin Sod/ Tazobactam Sod 100 ml @ 200 mls/hr ONCE STAT IV Last administered on 03/28/16at 18:36; Start 03/28/16 at 18:12; Stop 03/28/16 at 18 :41; Status DC Sodium Chloride 1,000 ml @ 999 mls/hr BOLUS ONCE IV ; Start 03/28/16 at 18:15 ; Stop 03/28/16 at 18:16; Status DC Sodium Chloride 1,000 ml @ 1,000 mls/hr Q1H ONCE IV Last administered on 03/28at 18:36; Start 03/28/16 at 18:15; Stop 03/28/16 at 19:16; Status DC Sodium Chloride 1,000 ml @ 1,000 mls/hr Q1H ONCE IV Last administered on 03/28at 18:36; Start 03/28/16 at 18:15; Stop 03/28/16 at 19:16; Status DC Sodium Chloride 700 ml @ 1,000 mls/hr Q42M ONCE IV Last administered on at 18:36; Start 03/28/16 at 18:15; Stop 03/28/16 at 19:16; Status DC Sodium Chloride 1,000 ml @ 1,000 mls/hr Q1H IV ; Start 03/28/16 at 20:41; Stop 03/28/16 at 21:40; Status DC Pharmacy Profile Note 0 ml @ 0 mls/hr UNSCH OTHER ; Start 03/28/16 at 22:45 Cefepime HCl/ Sodium Chloride (Maxipime Inj/NS Inj) 100 ml @ 200 mls/hr Q12HR IV Last administered on 03/30/16 08:24; Start 03/29/16 at 09:00 Dextrose (D50w (Vial) Inj) 25 ml UNSCH PRN IV PUSH HYPOGLYCEMIA-SEE COMMENTS; Start 03/28/16 at 22:45 Glucagon (Glucagon Inj) 1 mg UNSCH PRN OTHER HYPOGLYCEMIA-SEE COMMENTS; Start 03/28/16 at 22:45 Insulin Aspart 1 1 ACHS SLIDING SCALE SQ Last administered on 03/30/16 11:00; Start 03/29/16 at 07:00 Sodium Chloride (NS 1000 ml Inj) 1,000 ml @ 100 mls/hr Q10H IV Last administered on 03/29/16at 08:41; Start 03/28/16 at 22:31; Stop 03/29/16 at 17 :28; Status DC IV Flush (NS Flush) 2 ml UNSCH PRN FLUSH FLUSH AFTER USING IV ACCESS; Start at 22:45; Stop 03/29/16 at 21:47; Status DC IV Flush (NS Flush) 2 ml BID FLUSH Last administered on 03/29/16at 20:11; Start 03/29/16 at 09:00; Stop 03/29/16 at 21:47; Status DC Ondansetron HCl (Zofran Inj) 4 mg Q6H PRN IVP NAUSEA OR VOMITING Last administered on 03/29/16at 21:37; Start 03/28/16 at 22:45 Bisacodyl (Dulcolax Supp) 10 mg DAILY PRN CA CONSTIPATION; Start 03/28/16 at 22:45 Acetaminophen (Tylenol) 650 mg Q6H PRN PO FEVER/PAIN SCALE 1 TO 2; Start 03/28 at 22:45 Morphine Sulfate (Morphine Inj) 2 mg Q3H PRN IV Pain 6-10 Last administered on 03/29/16at 20:51; Start 03/28/16 at 22:45 Albuterol Sulfate (Proair Hfa Inh) 2.5 puff Q4H PRN INH SHORTNESS OF BREATH; Start 03/28/16 at 22:45 Aspirin (Ecotrin Ec) 81 mg DAILY PO Last administered on 03/30/16 08:23; Start 03/29/16 at 09:00 Atorvastatin Calcium (Lipitor) 40 mg HS PO Last administered on 03/29/16at 20: 12; Start 03/29/16 at 21:00 Clopidogrel Bisulfate (Plavix) 75 mg DAILY PO Last administered on 03/30/16 08: 23; Start 03/29/16 at 09:00 Gabapentin (Neurontin) 100 mg BID PO Last administered on 03/30/16 08:23; Start 03/29/16 at 09:00 Trazodone HCl 100 mg 100 mg HS PO Last administered on 03/29/16at 20:30; Start 03/29/16 at 21:00 Vancomycin HCl/ Sodium Chloride (Vancomycin Inj/ NS 250 ml Inj) 250 ml @ 250 mls/hr ONCE ONCE IV Last administered on 03/28/16 22:55; Start 03/28/16 at 22:45; Stop 03/28/16 at 23:44; Status DC Miscellaneous Information 1 [id number] XX Last administered on 03/29/16at 02:00; Start 03/29/16 at 02:00 Chlorhexidine Gluconate (Chlorhexidine 2% Cloth) 3 pack Taper DAILY@04 TOP Last administered on 03/30/16 03:51; Start 03/29/16 at 04:00; Stop 03/25/17 at 03:59 Chlorhexidine Gluconate (Chlorhexidine 2% Cloth) 3 pack UNSCH PRN TOP HYGIENIC CARE; Start 03/29/16 at 02:00 Guaifenesin 600 mg 600 mg BID PO Last administered on 03/30/16 08:23; Start at 09:00 Vancomycin HCl/ Sodium Chloride (Vancomycin Inj/ NS 500 ml Inj) 515 ml @ 257.5 mls/ hr ONCE IV Last administered on 03/30/16 12:37; Start 03/30/16 at 11:00; Stop 03/31/16 at 10:59 IV Flush (NS Flush) 2 ml UNSCH PRN FLUSH FLUSH AFTER USING IV ACCESS; Start at 10:15 IV Flush (NS Flush) 2 ml BID FLUSH Last administered on 03/30/16 08:24; Start 03/29/16 at 21:00 Acetaminophen (Tylenol) 650 mg Q4H PRN PO TEMP > 100.4; Start 03/29/16 at 10: 15 Ondansetron HCl (Zofran Inj) 4 mg Q6H PRN IVP NAUSEA OR VOMITING; Start at 10:15 Prochlorperazine (Compazine Supp) 25 mg Q12H PRN CA NAUSEA OR VOMITING; Start 03/29/16 at 10:15 Bisacodyl (Dulcolax Supp) 10 mg DAILY PRN CA CONSTIPATION; Start 03/29/16 at 10:15; Stop 03/29/16 at 21:46; Status DC Magnesium Hydroxide (Milk Of Magnesia Liq) 30 ml Q12H PRN PO CONSTIPATION; Start 03/29/16 at 10:15 Sennosides (Senokot) 17.2 mg Q12H PRN PO CONSTIPATION; Start 03/29/16 at 10:15 Pantoprazole Sodium (Protonix Inj) 40 mg Q12H IV PUSH Last administered on 12:37; Start 03/29/16 at 10:30 Mupirocin 1 applic 1 applic BID EACH NARE Last administered on 03/30/16 08:24; Start 03/29/16 at 21:00; Stop 04/05/16 at 20:59 Sodium Chloride 500 ml @ 500 mls/hr BOLUS ONCE IV Last administered on at 13:45; Start 03/29/16 at 13:45; Stop 03/29/16 at 14:44; Status DC Sodium Bicarbonate 150 meq/Dextrose 1,000 ml @ 100 mls/hr Q10H IV Last administered on 03/30/16 13:54; Start 03/29/16 at 18:00 Sodium Chloride (NS 500 ml Inj) 500 ml @ 500 mls/hr BOLUS ONCE IV Last administered on 03/29/16at 21:30; Start 03/29/16 at 21:30; Stop 03/29/16 at 22 :29; Status DC Hydroxyzine HCl 25 mg 25 mg ONCE ONCE PO Last administered on 03/29/16at 21:54 ; Start 03/29/16 at 21:30; Stop 03/29/16 at 21:31; Status DC Calcium Gluconate/ Sodium Chloride (Calcium Gluconate Inj/NS Inj) 100 ml @ 100 mls/hr ONCE ONCE IV Last administered on 03/29/16at 22:12; Start 03/29/16 at 21:45; Stop 03/29/16 at 22:44; Status DC Calcium Carbonate 1000 mg 1,000 mg BID PO Last administered on 03/30/16t 08:23; Start 03/29/16 at 21:45 Potassium Chloride 100 ml @ 50 mls/hr Q2H PRN IV For Potassium 2.8 - 3.2 mEq/L ; Start 03/29/16 at 22:45 Potassium Chloride (KCl 20 Meq Premix Inj) 100 ml @ 50 mls/hr Q2H PRN IV For Potassium 2.8 - 3.2 mEq/L; Start 03/29/16 at 22:45 Potassium Chloride 40 meq 40 meq UNSCH PRN PO/TUBE For Potassium 3.3 - 3.5 mEq/ L; Start 03/29/16 at 22:45 Potassium Chloride 100 ml @ 25 mls/hr UNSCH PRN IV For Potassium 3.3 - 3.5 mEq /L; Start 03/29/16 at 22:45 Potassium Chloride 100 ml @ 50 mls/hr Q2H PRN IV For Potassium 3.3 - 3.5 mEq/L ; Start 03/29/16 at 22:45 Magnesium Sulfate/ Sodium Chloride (Magnesium Sulfate Inj/NS Inj) 100 ml @ 50 mls/hr UNSCH PRN IV For Magnesium 0.9 - 1.1 mg/dL; Start 03/29/16 at 22:45 Magnesium Oxide 800 mg 800 mg UNSCH PRN PO For Magnesium 1.2 - 1.6 mg/dL; Start 03/29/16 at 22:45 Magnesium Sulfate/ Sodium Chloride (Magnesium Sulfate Inj/NS Inj) 100 ml @ 50 mls/hr UNSCH PRN IV For Magnesium 1.2 - 1.6 mg/dL; Start 03/29/16 at 22:45 Potassium Phosphate 2000 mg 2,000 mg Q4H PRN PO For Phosphorus < 2.5 mg/dL; Start 03/29/16 at 22:45 Sodium Phosphate/ Sodium Chloride (Sodium Phosphate Inj/NS 250 ml Inj) 250 ml @ 42 mls/hr UNSCH PRN IV For Phosphorus < 2.5 mg/dL; Start 03/29/16 at 22:45 Potassium Chloride (KCl 40 Meq/30 ml Liq) 40 meq UNSCH PRN PO/TUBE SEE LABEL COMMENTS; Start 03/29/16 at 22:45 Potassium Phosphate 2000 mg 2,000 mg UNSCH PRN PO/TUBE SEE LABEL COMMENTS; Start 03/29/16 at 22:45 Potassium Phosphate 30 mmol/ Sodium Chloride 260 ml @ 42 mls/hr UNSCH PRN IV SEE LABEL COMMENTS; Start 03/29/16 at 22:45 Magnesium Sulfate/ Dextrose 100 ml @ 100 mls/hr Q1H IV Last administered on 01:29; Start 03/29/16 at 23:45; Stop 03/30/16 at 01:44; Status DC Sodium Chloride (NS 500 ml Inj) 500 ml @ 500 mls/hr BOLUS ONCE IV Last administered on 03/30/16 05:33; Start 03/30/16 at 05:30; Stop 03/30/16 at 06:29; Status DC Physical Exam General Appearance: Well Developed, Well Nourished, No Acute Distress, Comfortable Neck Neck Exam: Trachea Midline Pulmonary Resp Exam: Clear Bilaterally, Breath Sounds Equal, No Distress Cardiology CV Exam: Regular, Normal Sinus Rhythm Gastrointestinal/Abdomen GI Exam: Soft, Non-Tender Integumentary Skin Exam: Clear, Warm, Normal Turgor Extremeties Extremities Exam: Moderate Edema (below the knees, 2+.), Pitting Edema Neurologic Neuro Exam: Awake, Speech Clear, Moving All Extremities Assessment/Plan Discussed Condition With: Patient Problem List: (1) Acute kidney insufficiency Plan: Most likely secondary to septic syndrome. Remains be established will not patient has developed established acute kidney injury which may result in progressive azotemia. Acid-base status and hyperkalemia have improved with sodium bicarbonate drip however she remains oliguric. I will give 1 dose of IV bumetanide today. If her azotemia continues to progress however with established acute kidney injury dialytic support may become a consideration. Medications should be adjusted for the patient's estimated GFR if clinically indicated. Avoid agents with significant potential for nephrotoxicity possible including NSAIDs for analgesia, iodine contrast agents. Gadolinium is contraindicated if the GFR is below 30. Will be following the patient up until this Thursday, March 31, [address] Bey will be taking over care of this patient. (2) Hyperkalemia Plan: Secondary to CKD, acute renal insufficiency and metabolic acidosis. (3) Metabolic acidosis Plan: Secondary to sepsis with lactic acidosis and associated acute kidney insufficiency. (4) CKD (chronic kidney disease) stage 3, GFR 30-59 ml/min Plan: Most likely secondary to nephrosclerosis of hypertension and aging. Rd Pool MD Mar 30, 2016 16:50
[2016-03-30] MEDS ORDERED: BUMETANIDE INJ 1 MG/4 ML VIAL IV PUSH ONE (17:00)
--- NOTE | 2016-03-30 19:00 | PD.ID.CON ---
History of Present Illness Service ID Consult Requested By Dr Vang Reason for Consult sepsis Primary Care Physician Non-Staff Diagnoses: History of Present Illness Pt is confused and unable to provide history Hx obtained from the chart an from Dr Vang 80 yo female from residential brought from residential into the ER w/ complaints of abdominal pain. CT abd/pelvis showed diverticulosis of the sigmoid colon, ? diverticulitis. Pt was found to be in renal failure, minimal urine output Prominent lactic acidemia CXR negative for infiltrates All cerda so far negative: blood cultures, UA, flu AG , Leg/pnuemococcus AG Pt has eosinphiluria Pt was given Vanc/Zosyn for Sepsis and suspected intra-abdominal infection, now switched to cefepime, vanco Pt's mental status improved, but UOP is still very low No diarrhea Pt denies any more abdominal pain Review of Systems ROS Limitations: Altered Mental Status Past Family Social History Allergies: Coded Allergies: Benadryl (Verified Allergy, Severe, 05/17/15) anaphylactic Lasix (Verified Allergy, Severe, 05/17/15) causes throat to swell Norpramin (Verified Allergy, Severe, 05/17/15) causes severe anger Percocet (Verified Allergy, Severe, 05/17/15) causes skin irritation Pineapple (Verified Allergy, Severe, 05/17/15) anaphylactic Latex (Unverified Allergy, Intermediate, Rash, 05/17/15) Past Medical History HTN, CHF (Echo 09/2015 w/ EF 30-40%), Breast CA and JAMEY Past Surgical History Colon Resection, Cardiac Stent Cardiac Ablation, Cataract Surgery, Hysterectomy , Bilateral Mastectomy, Left Hip Replacement Active Ordered Medications Medications where reviewed in EMR Antibiotics Include: vanco cefepime Family History Reviewed. No h/o DM or CAD Social History Negative for alcohol, tobacco or drugs. [facility] resident Physical Exam Vital Signs Vital Signs Date Time Temp Pulse Resp B/P Pulse Ox O2 Delivery O2 Flow Rate FiO2 03/30/16 18:00 98 03/30/16 16:00 94 03/30/16 16:00 97.9 94 15 109/52 99 03/30/16 15:40 98 Nasal Cannula 2.00 03/30/16 14:00 98 03/30/16 12:00 92 03/30/16 12:00 97.4 92 14 134/60 100 03/30/16 10:00 96 03/30/16 08:00 97 03/30/16 08:00 97.9 106 16 132/62 97 03/30/16 07:00 Nasal Cannula 2.00 03/30/16 06:00 99 03/30/16 04:00 97.5 101 23 136/60 100 03/30/16 04:00 101 03/30/16 02:00 102 03/30/16 00:00 100 03/30/16 00:00 97.8 102 19 136/67 99 03/29/16 22:00 99 03/29/16 20:56 16 03/29/16 20:00 97.5 102 13 129/64 100 03/29/16 20:00 100 03/29/16 19:58 99 Nasal Cannula 2.00 03/29/16 19:00 Nasal Cannula 2.00 Physical Exam CONSTITUTIONAL/GENERAL: This is an adequately nourished patient, in no apparent distress. SKIN: No jaundice, rashes, or lesions. Skin temperature appropriate. Not diaphoretic. Well healedb/l mastectomy scars HEAD: Atraumatic. Normocephalic. EYES: Pupils equal and round and reactive. Extraocular motions intact. No scleral icterus. No injection or drainage. Fundi not examined. ENT: Hearing grossly normal. Nose without bleeding or purulent drainage. Oral mucosae without visible erythema, exudates, masses, or lesions. NECK: Trachea midline. Supple, nontender. CARDIOVASCULAR: Regular rate and rhythm without murmurs, gallops, or rubs. No JVD. Peripheral pulses symmetric. RESPIRATORY/CHEST: Symmetric, unlabored respirations. Clear to auscultation. Breath sounds equal bilaterally. No wheezes, rales, or rhonchi. GASTROINTESTINAL: Abdomen soft, non-tender, nondistended. No hepato-splenomegaly , or palpable masses. No guarding. Bowel sounds present. GENITOURINARY: Without palpable bladder distension. Salazar catheter in place with clear yellow urine - UOP is very low MUSCULOSKELETAL: Extremities without clubbing, cyanosis, Diffuse soft pitting edema BLE and lower abdomen . No joint tenderness or effusion noted. No calf tenderness. No mottling or clubbing. LYMPHATICS: No palpable cervical or supraclavicular adenopathy. NEUROLOGICAL: Lethargic, but arousable. Quite confused Moves all 4 extremieties, follows commands PSYCHIATRIC:unable to assess Laboratory Laboratory Tests Test 03/29/16 03/30/16 03/30/16 20:30 04:56 09:18 Sodium Level 133 134 Potassium Level 4.6 4.7 Chloride Level 99 99 Carbon Dioxide Level 19.6 23.3 Anion Gap 14 12 Blood Urea Nitrogen 33 39 Creatinine 1.83 1.97 Estimat Glomerular Filtration 27 24 Rate Random Glucose 191 285 Lactic Acid Level 4.4 2.8 2.9 Calcium Level 7.2 7.4 Protein Corrected Calcium 7.1 7.7 Magnesium Level 1.2 1.7 Total Protein 7.4 6.6 White Blood Count 13.3 Red Blood Count 3.50 Hemoglobin 11.7 Hematocrit 37.1 Mean Corpuscular Volume 105.8 Mean Corpuscular Hemoglobin 33.5 Mean Corpuscular Hemoglobin 31.6 Concent Red Cell Distribution Width 19.5 Platelet Count 104 Mean Platelet Volume 8.9 Neutrophils (%) (Auto) 87.0 Lymphocytes (%) (Auto) 5.9 Monocytes (%) (Auto) 6.9 Eosinophils (%) (Auto) 0.0 Basophils (%) (Auto) 0.2 Neutrophils # (Auto) 11.6 Lymphocytes # (Auto) 0.8 Monocytes # (Auto) 0.9 Eosinophils # (Auto) 0.0 Basophils # (Auto) 0.0 CBC Comment DIFF FINAL Differential Comment Phosphorus Level 4.9 Random Vancomycin Level 15.4 Complement C3 69 Complement C4 11 Date/Time Procedure Status Source Growth 03/30/16 01:33 Legionella Antigen - Final Complete Urine Random Urine PRESUMPTIVE NEGATIVE FOR LEGIONELLA P... 03/30/16 01:33 Streptococcus pneumoniae Antigen (M - Final Complete Urine Random Urine PRESUMPTIVE NEGATIVE FOR STREPTOCOCCU... 03/29/16 00:50 Influenza Types A,B Antigen (TED) - Final Complete Nasal Washing NEGATIVE FOR FLU A AND B ANTIGEN.... 03/28/16 14:05 Aerobic Blood Culture - Preliminary Resulted Blood Peripheral NO GROWTH IN 2 DAYS 03/28/16 14:05 Anaerobic Blood Culture - Preliminary Resulted Blood Peripheral NO GROWTH IN 2 DAYS Result Diagram: 03/30/16 0456 03/30/16 0456 Imaging Last Impressions Renal Ultrasound 03/29/16 0000 Signed Impressions: Service Date/Time: Tuesday, March 29, 2016 12:11 - CONCLUSION: 1. Right renal cyst. 2. Bladder not visualized. José Miguel Louis MD Lower Extremity Ultrasound 03/29/16 0000 Signed Impressions: Service Date/Time: Tuesday, March 29, 2016 11:52 - CONCLUSION: Normal examination. José Miguel Louis MD Lung Scan-V Nuclear Medicine 03/28/162023 Signed Impressions: Service Date/Time: Monday, March 28, 2016 21:31 - CONCLUSION: Low probability for pulmonary embolism. Vipin Magdaleno MD Abdomen/Pelvis CT 03/28/16 1841 Signed Impressions: Service Date/Time: Monday, March 28, 2016 18:52 - CONCLUSION: 1. Diverticulosis of the sigmoid colon, cannot exclude diverticulitis. 2. Small amount of abdominal ascites. 3. Small left pleural effusion. 4. Ventral wall hernia containing fat along the left abdominal wall. 5. Cholecystectomy. 6. Anasarca. 7. LAP band procedure. Vipin Magdaleno MD Chest X-Ray 03/28/16 1333 Signed Impressions: Service Date/Time: Monday, March 28, 2016 14:49 - CONCLUSION: No acute pulmonary infiltrates. No significant change. Raul Zamora MD Assessment and Plan Assessment and Plan Sepsis ? source : inapparent Diverituclosis ? diverticulitis -clinically no e/o divericulitis ARF No e/o UTi dc vancomycin - cont cefepime - add flagyl IV Discussed Condition With RN Dr Taj Lin,Jayda Lara MD Mar 30, 2016 19:00
[2016-03-30] MEDS: metroNIDAZOLE 500 MG INJ 100 ML IV SCH (21:33)
[2016-03-30] MEDS: traZODone HCL 100 MG TAB PO SCH (21:58)
[2016-03-30] MEDS: ATORVASTATIN 40 MG TAB PO SCH (21:58)
[2016-03-30] MEDS: ONDANSETRON HCL 4 MG/2 ML VIAL IVP PRN (22:42)
[2016-03-30] MEDS: MORPHINE SULFATE 4 MG/ML INJ IV PRN (22:42)
[2016-03-31] VITALS (14 sets, daily range): BP systolic 117–142; BP diastolic 58–81; PULSE 82–104; RESP 12–22; TEMP 97.4–98.6; O2SAT 95–100
--- NOTE | 2016-03-31 01:22 | HHI.CCPN ---
Subjective Remarks/Hospital Course Critical care medicine consulted to assist with vascular access. Vascular access team not available due to s holiday. I discussed with gas main fitter helper RN who stated that they were able to obtain a peripheral IV and that patient was able to receive bicarbonate drip and all prescribed antibiotics and other medications with current access. No further IV access is needed. Critical care medicine is available access becomes necessary. Objective Vital Signs Date Time Temp Pulse Resp B/P Pulse Ox O2 Delivery O2 Flow Rate FiO2 03/31/16 00:00 100 03/31/16 00:00 98.6 12 118/61 100 03/30/16 19:35 Nasal Cannula 2.00 Intake and Output 03/30/16 03/30/16 03/30/16 07:59 15:59 23:59 Intake Total 1679 ml 1881 ml 1110 ml Output Total 100 ml 50 ml 175 ml Balance 1579 ml 1831 ml 935 ml Result Diagram: 03/30/16 0456 03/30/16 0456 Other Results Microbiology Date/Time Procedure Status Source Growth 03/29/16 00:50 Influenza Types A,B Antigen (TED) - Final Complete Nasal Washing NEGATIVE FOR FLU A AND B ANTIGEN.... 03/30/16 01:33 Legionella Antigen - Final Complete Urine Random Urine PRESUMPTIVE NEGATIVE FOR LEGIONELLA P... 03/30/16 01:33 Streptococcus pneumoniae Antigen (M - Final Complete Urine Random Urine PRESUMPTIVE NEGATIVE FOR STREPTOCOCCU... Rebecca Pierre MD Mar 31, 2016 01:22
[2016-03-31] MEDS: SODIUM BICARBONATE 8.4% INJ 150 MEQ in DEXTROSE 5% IN WATE 1000ML INJ 850 ML IV SCH ×2 (02:51)
[2016-03-31] MEDS: CHLORHEXIDINE GLUCONATE 2 % 1 PACK (2 CLOTHS) TOP SCH (04:00)
[2016-03-31] MEDS: metroNIDAZOLE 500 MG INJ 100 ML IV SCH ×3 (04:18→19:30)
[2016-03-31 04:54] LABS: BICARBONATE 27.9 MEQ/L (21.0-32.0); POTASSIUM 3.7 MEQ/L (3.5-5.1)
[2016-03-31 05:12] LABS: CALCIUM-PROTEIN CORRECTED 7.2 MG/DL (8.5-10.1)
[2016-03-31] MEDS ORDERED: CALCIUM CHLORIDE INJ 1 GM in DEXTROSE 5% IN WATER 100ML INJ 100 ML IV ONE ×2 (05:30)
[2016-03-31] MEDS: INSULIN ASPART SUPPLEMENTAL SCALE SQ SCH ×4 (06:48→19:36)
--- NOTE | 2016-03-31 08:05 | HHI.PR ---
Subjective Remarks Patient with difficult IV access. Peripheral line obtained by night nurse. With low Calcium , received Ca gluconate IV. She is sleepy and has a very weak voice. With sob, feels weak, has cough productive at times. Denies having any pain at this time. Objective Vitals Vital Signs Date Time Temp Pulse Resp B/P Pulse Ox O2 Delivery O2 Flow Rate FiO2 03/31/16 07:23 95 Nasal Cannula 2.00 03/31/16 07:00 Nasal Cannula 2.00 03/31/16 06:00 85 03/31/16 04:00 92 03/31/16 04:00 97.4 92 20 132/72 98 03/31/16 02:00 101 03/31/16 00:00 100 03/31/16 00:00 98.6 100 12 118/61 100 03/30/16 22:00 97 03/30/16 20:00 98 03/30/16 20:00 97.7 98 13 136/60 99 03/30/16 19:35 99 Nasal Cannula 2.00 03/30/16 19:00 Nasal Cannula 2.00 03/30/16 18:00 98 03/30/16 16:00 94 03/30/16 16:00 97.9 94 15 109/52 99 03/30/16 15:40 98 Nasal Cannula 2.00 03/30/16 14:00 98 03/30/16 12:00 92 03/30/16 12:00 97.4 92 14 134/60 100 03/30/16 10:00 96 I/O 03/30/16 03/30/16 03/30/16 03/31/16 03/31/16 03/31/16 07:00 15:00 23:00 07:00 15:00 23:00 Intake Total 1679 ml 1881 ml 1110 ml 877 ml Output Total 100 ml 50 ml 175 ml 300 ml Balance 1579 ml 1831 ml 935 ml 577 ml Intake Oral 240 ml 240 ml 240 ml 120 ml IV Total 1439 ml 1641 ml 870 ml 757 ml Output Urine Total 100 ml 50 ml 175 ml 300 ml # Bowel Movements 0 0 0 0 Result Diagram: 03/30/16 0456 03/31/16 0330 Imaging Last Impressions Renal Ultrasound 03/29/16 0000 Signed Impressions: Service Date/Time: Tuesday, March 29, 2016 12:11 - CONCLUSION: 1. Right renal cyst. 2. Bladder not visualized. oJsé Miguel Louis MD Lower Extremity Ultrasound 03/29/16 0000 Signed Impressions: Service Date/Time: Tuesday, March 29, 2016 11:52 - CONCLUSION: Normal examination. José Miguel Louis MD Lung Scan-VQ Nuclear Medicine 03/28/162023 Signed Impressions: Service Date/Time: Monday, March 28, 2016 21:31 - CONCLUSION: Low probability for pulmonary embolism. Vipin Magdaleno MD Abdomen/Pelvis CT 03/28/16 1841 Signed Impressions: Service Date/Time: Monday, March 28, 2016 18:52 - CONCLUSION: 1. Diverticulosis of the sigmoid colon, cannot exclude diverticulitis. 2. Small amount of abdominal ascites. 3. Small left pleural effusion. 4. Ventral wall hernia containing fat along the left abdominal wall. 5. Cholecystectomy. 6. Anasarca. 7. LAP band procedure. Vipin Magdaleno MD Chest X-Ray 03/28/16 1333 Signed Impressions: Service Date/Time: Monday, March 28, 2016 14:49 - CONCLUSION: No acute pulmonary infiltrates. No significant change. Raul Zamora MD Objective Remarks GENERAL: Elderly female appears acutely ill. HEENT: PERRLA, EOMI. No scleral icterus or conjunctival pallor. No lid lag or facial droop. CARDIOVASCULAR: Regular rate and rhythm. No obvious murmurs to auscultation. No chest tenderness to palpation. RESPIRATORY: Scattered rhonchi and wheezing. With sob. GASTROINTESTINAL: Abdomen soft, non-tender, nondistended. BS normal. MUSCULOSKELETAL: Extremities without clubbing, cyanosis, or edema. No obvious deformities. NEUROLOGICAL: Awake, alert. No focal neurologic deficits. Moving both upper and lower extremities spontaneously. A/P Problem List: (1) Sepsis ICD Code: A41.9 Status: Acute (2) DM (diabetes mellitus) ICD Code: E11.9 Status: Acute (3) HTN (hypertension) ICD Code: I10 Status: Acute (4) CHF (congestive heart failure) ICD Code: I50.9 Status: Acute Assessment and Plan Septic syndrom. Lactic acidosis. HR 120's, RR 24. Lactic Acid 5.5 on admission and continued to trend up. LA 03/30/16 2.9. Source-suspected intra- abdominal source. S/p Blood Cultures and IV Vanc/Zosyn in ER. Check Sputum cultures in light of productive cough. Continue w/ Vanc/Cefepime. CXR negative , images reviewed. CT Abd/Pelvis w/ possible diverticulitis, images reviewed. IVF, caution w/ CHF. Repeat lactic acid, repeat labs. Duonebs as need and scheduled. Add steroids. Taper duonebs and steroids as tolerated. Consult ID for further recommendations ICU delirium. Patient with visual hallucinations on/off. Diverticulitis. Rectal bleeding (per patient): Start pantoprazol IV. FOBT. Monitor H/H. Consult GI specialist. Systolic CHF: Acute on Chronic. EF 30-40% per records from 09/2015. Hold Bumex as patient with low UOP, caution w/ Sepsis. BNP 2608 on admission. Improving. Consult Dr Lazo her cardiology DR VARGAS with low UOP. UA neg, renal US reviewed. Consult nephrology. On hold bumex.. Give gentle hydration, add bicarb. Monitor kidney function and UOP. Hyperkalemia: Monitor. Repeat level back to normal. Hypocalcemia: Replace with Ca gluconate IV. Monitor and replace Hypomagnesemia. Monitor and replace. DM2: Sliding scale w/ Accu-Cheks. Resume home Lantus once taking adequate PO. HTN: Controlled. Hold antihypertensives in light of sepsis, monitor BP. DVT Prophylaxis: SCD/Teds. Case management consulted for d/c planning as needed. Discussed with the patient, ICU nurse Problem Qualifiers (1) Sepsis: Qualified Code: A41.9 - Sepsis, due to unspecified organism Chapis Vang MD Mar 31, 2016 08:05
[2016-03-31] MEDS: CEFEPIME INJ 1,000 MG in SODIUM CHLORIDE 0.9% INJ 100 ML IV SCH ×2 (09:37→19:37)
[2016-03-31] MEDS: SODIUM CHLORIDE 0.9% FLUSH 5 ML FLUSH FLUSH SCH ×2 (09:37→19:37)
[2016-03-31] MEDS: ASPIRIN EC 81 MG TABEC PO SCH (09:38)
[2016-03-31] MEDS: CALCIUM CARBONATE 1.25 GM (CA 500 MG) TAB PO SCH ×2 (09:38→19:36)
[2016-03-31] MEDS: CLOPIDOGREL 75 MG TAB PO SCH (09:38)
[2016-03-31] MEDS: GABAPENTIN 100 MG CAP PO SCH ×2 (09:38→19:36)
[2016-03-31] MEDS: guaiFENesin E.R. 600 MG TAB PO SCH ×2 (09:38→19:36)
[2016-03-31] MEDS: MUPIROCIN 2% OINT 1 APPLIC/GM SYR EACH NARE SCH ×2 (09:38→19:36)
[2016-03-31] MEDS: PANTOPRAZOLE SODIUM 40 MG VIAL IV PUSH SCH ×2 (09:41→22:27)
--- NOTE | 2016-03-31 10:40 | HHI.NPPN ---
Subjective General Problems: Edema Renal Failure: Chronic, Acute Interval History Renal function is worse. She responded to Bumex but beginning to become edematous. (Marisa Machado) Review of Systems General Constitutional: Fatigue (Marisa Machado) Objective Data Data 03/30/16 03/31/16 19:00 07:00 Intake Total 1881 ml 1987 ml Output Total 50 ml 475 ml Balance 1831 ml 1512 ml Intake Oral 240 ml 360 ml IV Total 1641 ml 1627 ml Output Urine Total 50 ml 475 ml # Bowel Movements 0 0 Vital Signs Date Time Temp Pulse Resp B/P Pulse Ox O2 Delivery O2 Flow Rate FiO2 03/31/16 07:23 95 Nasal Cannula 2.00 03/31/16 07:00 Nasal Cannula 2.00 03/31/16 06:00 85 03/31/16 04:00 92 03/31/16 04:00 97.4 92 20 132/72 98 03/31/16 02:00 101 03/31/16 00:00 100 03/31/16 00:00 98.6 100 12 118/61 100 03/30/16 22:00 97 03/30/16 20:00 98 03/30/16 20:00 97.7 98 13 136/60 99 03/30/16 19:35 99 Nasal Cannula 2.00 03/30/16 19:00 Nasal Cannula 2.00 03/30/16 18:00 98 03/30/16 16:00 94 03/30/16 16:00 97.9 94 15 109/52 99 03/30/16 15:40 98 Nasal Cannula 2.00 03/30/16 14:00 98 03/30/16 12:00 92 03/30/16 12:00 97.4 92 14 134/60 100 (Marisa Machado) -: 03/30/16 0456 03/31/16 0330 Imaging Last 72 hours Impressions Renal Ultrasound 03/29/16 0000 Signed Impressions: Service Date/Time: Tuesday, March 29, 2016 12:11 - CONCLUSION: 1. Right renal cyst. 2. Bladder not visualized. José Miguel Louis MD Lower Extremity Ultrasound 03/29/16 0000 Signed Impressions: Service Date/Time: Tuesday, March 29, 2016 11:52 - CONCLUSION: Normal examination. José Miguel Louis MD Lung Scan-V Nuclear Medicine 03/28/162023 Signed Impressions: Service Date/Time: Monday, March 28, 2016 21:31 - CONCLUSION: Low probability for pulmonary embolism. Vipin Magdaleno MD Abdomen/Pelvis CT 03/28/16 1841 Signed Impressions: Service Date/Time: Monday, March 28, 2016 18:52 - CONCLUSION: 1. Diverticulosis of the sigmoid colon, cannot exclude diverticulitis. 2. Small amount of abdominal ascites. 3. Small left pleural effusion. 4. Ventral wall hernia containing fat along the left abdominal wall. 5. Cholecystectomy. 6. Anasarca. 7. LAP band procedure. Vipin Magdaleno MD Chest X-Ray 03/28/16 1333 Signed Impressions: Service Date/Time: Monday, March 28, 2016 14:49 - CONCLUSION: No acute pulmonary infiltrates. No significant change. Raul Zamora MD Drip Comment bicarb (Meek Machadoon [employer]) Physical Exam General Appearance: Well Developed, Well Nourished, No Acute Distress, Comfortable, Sleeping (CarterMarisa [employer]) Neck Neck Exam: Trachea Midline (CarterMarisa [employer]) Pulmonary Resp Exam: Breath Sounds Equal, Crackles, Rhonchi (CarterMarisa [employer]) Cardiology CV Exam: Regular, Normal Sinus Rhythm (CarterMarisa [employer]) Gastrointestinal/Abdomen GI Exam: Soft, Non-Tender, Bowel Sounds Present (CarterMarisa [employer]) Musculoskeletal MS Exam: Joints Intact, Good Strength (CarterMarisa [employer]) Integumentary Skin Exam: Clear, Warm, Normal Turgor (CarterMarisa [employer]) Extremeties Extremities Exam: Moderate Edema (below the knees, 2+.), Pitting Edema ( CarterMarisa [employer]) Neurologic Neuro Exam: Awake, Speech Clear, Moving All Extremities (Meek Machadoon [employer]) Assessment/Plan Discussed Condition With: Patient Assessment Summary: SAM/Acute Renal Failure Electrolyte Assessment: Hypocalcemia Problem List: (1) Acute kidney insufficiency Plan: SAM most likely due to sepsis, decreased renal perfusion renal function is worse today oliguric, but urine output increasing now edematous, will stop IVF acidosis corrected, stop bicarb drip Begin Bumex, 1 mg IV BID, follow urine output Avoid nephrotoxins, adjust medications for the patient's estimated GFR. Gadolinium is contraindicated if the GFR is below 30. (2) CKD (chronic kidney disease) stage 3, GFR 30-59 ml/min Plan: Most likely secondary to nephrosclerosis baseline creatinine 1.25 (3) Hyperkalemia Plan: Secondary to CKD, corrected (4) Metabolic acidosis Plan: corrected, will stop bicarb infusion (5) Hypocalcemia Plan: check vitamin D, PTH given calcium gluconate (Marisa Machado) Plan patient was seen and examined. Agree with above assessment and plan. (Sharad Bey MD) Marisa Machado Mar 31, 2016 10:40 Sharad Bey MD Mar 31, 2016 14:19
--- NOTE | 2016-03-31 15:40 | EC ---
Study Study Date:03/31/2016 STUDY CONCLUSIONS SUMMARY - Left ventricle: The cavity size was mildly dilated. Wall thickness was normal. Systolic function was severely reduced by visual assessment. The estimated ejection fraction was in the range of 25% to 30%. Diffuse hypokinesis. - Aortic valve: Transvalvular velocity was increased. There was severe stenosis. Mild regurgitation. Valve area: 0.8cm^2(VTI). Valve area: 0.71cm^2 (Vmax). - Mitral valve: Moderately to severely calcified annulus. Mild to moderate regurgitation. - Left atrium: The atrium was mildly to moderately dilated. - Right atrium: The atrium was moderately dilated. - Tricuspid valve: Severe regurgitation. - Pulmonary arteries: Systolic pressure was moderately increased. If LV function is below 40, please consider prescribing an ACEI or ARB or document rationale for non-use. PROCEDURE DATA STUDY STATUS: Elective. Procedure: Transthoracic echocardiography. Image quality was good. Scanning was performed from the parasternal, apical, and subcostal acoustic windows. Study completion: The patient tolerated the procedure well. Transthoracic echocardiography. M-mode, complete 2D, complete spectral Doppler, and color Doppler. Height: Height: 62in. Weight: Weight: 205.6lb. Body mass index: BMI: 37.7kg/m^2. Body surface area: BSA: 1.94m^2. Patient status: Inpatient. CARDIAC ANATOMY LEFT VENTRICLE: The cavity size was mildly dilated. Wall thickness was normal. Systolic function was severely reduced by visual assessment. The estimated ejection fraction was in the range of 25% to 30%. Diffuse hypokinesis. AORTIC VALVE: Trileaflet; mildly thickened, moderately calcified leaflets. Doppler: Transvalvular velocity was increased. There was severe stenosis. Mild regurgitation. Valve area: 0.8cm^2(VTI). Indexed valve area: 0.41cm^2/m^2 (VTI). Valve area: 0.71cm^2 (Vmax). Indexed valve area: 0.37cm^2/m^2 (Vmax). Mean gradient: 12mm Hg (S). Peak gradient: 21mm Hg (S). AORTA: Aortic root: The aortic root was poorly visualized and normal in size. MITRAL VALVE: Moderately to severely calcified annulus. Doppler: Transvalvular velocity was within the normal range. There was no evidence for stenosis. Mild to moderate regurgitation. Peak gradient: 13mm Hg (D). LEFT ATRIUM: The atrium was mildly to moderately dilated. RIGHT VENTRICLE: The cavity size was normal. Wall thickness was normal. PULMONIC VALVE: Doppler: Transvalvular velocity was within the normal range. There was no evidence for stenosis. No regurgitation. TRICUSPID VALVE: Structurally normal valve. Doppler: Transvalvular velocity was within the normal range. Severe regurgitation. PULMONARY ARTERY: Systolic pressure was moderately increased. RIGHT ATRIUM: The atrium was moderately dilated. PERICARDIUM: There was no pericardial effusion. SYSTEMIC VEINS: Inferior vena cava: The vessel was mildly dilated. Patient weight: 205.6lb _Ejection fraction:_ 65-75% _Fractional shortening:_ 32% up to 5Kg 5-11.5Kg 11.6-22.9Kg 23-45Kg 45-57Kg Aortic Root 7-13 <17 13-22 17-27 17-27 LA diam 6-13 <23 24-38 33-47 37-40 RVID 10-17 7-15 7-15 7-18 8-17 LVIDd 12-22 <32 24-38 33-47 37-40 LVPW 2-4 3-6 5-7 6-8 7-8 IVS 2-4 3-6 5-7 6-8 7-8 BASIC MEASUREMENTS ADULT NORMAL Left ventricle LV internal dimension, ED, chordal 51.5 mm 43-52 level, PLAX LV internal dimension, ES, chordal *46.2 mm 23-38 level, PLAX Fractional shortening, chordal level, *10 % >29 PLAX LV posterior wall thickness, ED 8.33 mm IVS/LVPW ratio, ED 1.03 <1.3 Volume, ED, MOD, 1-plane 63 ml Volume, ES, MOD, 1-plane 50 ml Ejection fraction, MOD, 1-plane 21 % Stroke volume, MOD, 1-plane 13 ml Volume index, ED, MOD, 1-plane 32 ml/m^2 Volume index, ES, MOD, 1-plane 26 ml/m^2 Stroke index, MOD, 1-plane 6.7 ml/m^2 Volume, ED, MOD, 2-plane 83 ml Volume, ES, MOD, 2-plane 68 ml Ejection fraction, MOD, 2-plane 18 % Stroke volume, MOD, 2-plane 15 ml Volume index, ED, MOD, 2-plane 43 ml/m^2 Volume index, ES, MOD, 2-plane 35 ml/m^2 Stroke index, MOD, 2-plane 7.7 ml/m^2 Ventricular septum Septal thickness, ED 8.55 mm LVOT Area 1.3 cm^2 Aortic valve Leaflet separation *12 mm 15-26 Aorta Root diameter, ED 30 mm Left atrium Anterior-posterior dimension 38 mm Anterior-posterior dimension index 1.96 cm/m^2 <2.2 Right ventricle RV internal dimension, ED, PLAX *42.4 mm 19-38 BASIC MEASUREMENTS ADULT NORMAL Aortic valve Leaflet separation *12 mm 15-26 DOPPLER MEASUREMENTS ADULT NORMAL Aortic valve Peak velocity, S 227 cm/s Mean velocity, S 162 cm/s VTI, S 41.8 cm Mean gradient, S 12 mm Hg Peak gradient, S 21 mm Hg Valve area, VTI 0.8 cm^2 Valve area index, VTI 0.41 cm^2/m^2 Valve area, Vmax 0.71 cm^2 Valve area index, Vmax 0.37 cm^2/m^2 Mitral valve Peak E-wave velocity 183 cm/s Deceleration time 157 ms 150-230 Peak gradient, D 13 mm Hg Tricuspid valve Regurgitant peak velocity 360 cm/s Peak RV-RA gradient, S 52 mm Hg Pulmonic valve Peak velocity, S 44.7 cm/s LEGEND: Mean values are shown as u=mean value. Asterisk (*) marcos values outside specified normal range. Prepared and signed by Mina Gregg [id number]
[2016-03-31] MEDS: BUMETANIDE INJ 1 MG/4 ML VIAL IV PUSH SCH (17:19)
--- NOTE | 2016-03-31 18:14 | EKG ---
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
[2016-03-31] MEDS: ATORVASTATIN 40 MG TAB PO SCH (19:36)
[2016-03-31] MEDS: traZODone HCL 100 MG TAB PO SCH (19:41)
[2016-04-01] VITALS (14 sets, daily range): BP systolic 130–149; BP diastolic 61–89; PULSE 79–113; RESP 12–23; TEMP 96.8–98; O2SAT 92–100
[2016-04-01] MEDS: metroNIDAZOLE 500 MG INJ 100 ML IV SCH ×3 (03:43→19:00)
[2016-04-01] MEDS: CHLORHEXIDINE GLUCONATE 2 % 1 PACK (2 CLOTHS) TOP SCH (04:00)
[2016-04-01 05:08] LABS: AUTOMATED NEUTROPHIL # 7.3 TH/MM3 (1.8-7.7); BASOPHIL % 0.3 % (0.0-2.0); EOSINOPHIL # 0.1 TH/MM3 (0-0.4); EOSINOPHIL % 0.7 % (0.0-4.0); HEMATOCRIT 37.2 % (35.0-46.0); LYMPH % 10.1 % (9.0-44.0); LYMPHOCYTE # 0.9 TH/MM3 (1.0-4.8); MEAN CELL VOLUME 101.5 FL (80.0-100.0); MEAN CORPUSCULAR HGB CONC 32.5 % (32.0-36.0); MONO % 10.3 % (0.0-8.0); NEUT % 78.6 % (16.0-70.0); PLATELET COUNT 73 TH/MM3 (150-450); RED BLOOD COUNT 3.66 MIL/MM3 (4.00-5.30); RED CELL DISTRIBUTION WIDTH 19.2 % (11.6-17.2); WHITE BLOOD COUNT 9.4 TH/MM3 (4.0-11.0)
[2016-04-01 05:19] LABS: HEMO FLAGS AUTO DIFF
[2016-04-01 05:20] LABS: BICARBONATE 31.9 MEQ/L (21.0-32.0); POTASSIUM 3.3 MEQ/L (3.5-5.1)
[2016-04-01] MEDS: INSULIN ASPART SUPPLEMENTAL SCALE SQ SCH ×4 (06:44→20:41)
[2016-04-01 06:57] LABS: ACANTHOCYTES OCC (NORMAL); KERATOCYTES OCC (NORMAL); PLATELET ESTIMATE SMEAR LOW (NORMAL); PLATELET MORPHOLOGY NORMAL (NORMAL); SCAN/DIFF AUTO DIFF CONFIRMED
[2016-04-01] MEDS: CLOPIDOGREL 75 MG TAB PO SCH (09:25)
[2016-04-01] MEDS: CALCIUM CARBONATE 1.25 GM (CA 500 MG) TAB PO SCH (09:25)
[2016-04-01] MEDS: CEFEPIME INJ 1,000 MG in SODIUM CHLORIDE 0.9% INJ 100 ML IV SCH ×2 (09:25→20:42)
[2016-04-01] MEDS: ASPIRIN EC 81 MG TABEC PO SCH (09:25)
[2016-04-01] MEDS: BUMETANIDE INJ 1 MG/4 ML VIAL IV PUSH SCH ×2 (09:25→18:35)
[2016-04-01] MEDS: GABAPENTIN 100 MG CAP PO SCH ×2 (09:25→20:42)
[2016-04-01] MEDS: SODIUM CHLORIDE 0.9% FLUSH 5 ML FLUSH FLUSH SCH ×2 (09:26→21:00)
[2016-04-01] MEDS: PANTOPRAZOLE SODIUM 40 MG VIAL IV PUSH SCH ×2 (09:33→22:30)
[2016-04-01] MEDS: MUPIROCIN 2% OINT 1 APPLIC/GM SYR EACH NARE SCH ×2 (09:33→20:41)
[2016-04-01] MEDS: guaiFENesin E.R. 600 MG TAB PO SCH ×2 (09:33→20:41)
--- NOTE | 2016-04-01 10:26 | HHI.NPPN ---
Subjective General Problems: Edema Renal Failure: Chronic, Acute Interval History Sitting up in chair eating. Eyes closed but answers questions. Renal function is better. (Marisa Machado) Review of Systems General Constitutional: Fatigue (Marisa Machado) Objective Data Data 03/31/16 04/01/16 19:00 07:00 Intake Total 382 ml 553 ml Output Total 350 ml 1375 ml Balance 32 ml -822 ml Intake Oral 150 ml 240 ml IV Total 232 ml 313 ml Output Urine Total 350 ml 1375 ml # Bowel Movements 0 0 Vital Signs Date Time Temp Pulse Resp B/P Pulse Ox O2 Delivery O2 Flow Rate FiO2 04/01/16 10:00 113 04/01/16 08:00 Nasal Cannula 2.00 04/01/16 08:00 98.0 102 18 149/83 100 04/01/16 08:00 102 04/01/16 06:00 112 04/01/16 04:00 107 04/01/16 04:00 98.0 100 12 134/89 97 04/01/16 02:00 109 04/01/16 00:00 98.0 100 12 130/61 98 04/01/16 00:00 100 03/31/16 22:00 99 03/31/16 20:00 96 03/31/16 20:00 97.4 96 13 123/58 99 03/31/16 19:00 99 Nasal Cannula 2.00 03/31/16 19:00 Nasal Cannula 2.00 03/31/16 18:00 98 03/31/16 16:00 100 03/31/16 16:00 97.7 100 16 117/65 100 03/31/16 14:00 102 03/31/16 12:00 96 03/31/16 12:00 97.8 96 22 142/81 98 (Mairsa Machado) -: 04/01/16 0344 04/01/16 0344 Drip Comment bicarb (Marisa Machado) Physical Exam General Appearance: Well Developed, Well Nourished, No Acute Distress, Comfortable ( Marisa Machado) Neck Neck Exam: Trachea Midline (Marisa Machado) Pulmonary Resp Exam: Breath Sounds Equal, Crackles, Rhonchi (Marisa Machado) Cardiology CV Exam: Regular, Normal Sinus Rhythm (Marisa Machado) Gastrointestinal/Abdomen GI Exam: Soft, Non-Tender, Bowel Sounds Present (Marisa Machado) Musculoskeletal MS Exam: Joints Intact, Good Strength (Marisa Machado) Integumentary Skin Exam: Clear, Warm, Normal Turgor (Marisa Machado) Extremeties Extremities Exam: Pedal Pulses Palpable, Moderate Edema (below the knees, 2+.) , Pitting Edema (Marisa Machado) Neurologic Neuro Exam: Awake, Speech Clear, Moving All Extremities (Marisa Machado) Psychiatric Psych Exam: Appropriate Responses (Marisa Machado) Assessment/Plan Discussed Condition With: Patient Assessment Summary: SAM/Acute Renal Failure Electrolyte Assessment: Hypocalcemia Problem List: (1) Acute kidney insufficiency Plan: SAM most likely due to sepsis, decreased renal perfusion renal function is better today increased urine output with bumex, continue off IVF, edema improving on electrolyte replacement protocol Avoid nephrotoxins, adjust medications for the patient's estimated GFR. Gadolinium is contraindicated if the GFR is below 30. labs in am (2) CKD (chronic kidney disease) stage 3, GFR 30-59 ml/min Plan: Most likely secondary to nephrosclerosis baseline creatinine 1.25 (3) Hypocalcemia Plan: improving vit D low, PTH elevated given calcium gluconate, will begin calcitriol , stop calcium carbonate (4) Metabolic acidosis Plan: corrected (5) Hyperkalemia Plan: Secondary to CKD, corrected (Marisa Machado) Plan patient was seen and examined. Renal function has improved. Diuresing well. ( Sharad Bey MD) Marisa Machado Apr 01, 2016 10:26 Sharad Bey MD Apr 01, 2016 14:24
--- NOTE | 2016-04-01 13:55 | HHI.PR ---
Subjective Remarks In the chair, family at bedside, she is condused mentation on/off. Per family her mentation and confusion is cleareing in the mid day. Patient feels very weak. No pain. No n/v/d/c. Kidney fx improving . Objective Vitals Vital Signs Date Time Temp Pulse Resp B/P Pulse Ox O2 Delivery O2 Flow Rate FiO2 04/01/16 10:00 113 04/01/16 08:00 Nasal Cannula 2.00 04/01/16 08:00 98.0 102 18 149/83 100 04/01/16 08:00 102 04/01/16 06:00 112 04/01/16 04:00 107 04/01/16 04:00 98.0 100 12 134/89 97 04/01/16 02:00 109 04/01/16 00:00 98.0 100 12 130/61 98 04/01/16 00:00 100 03/31/16 22:00 99 03/31/16 20:00 96 03/31/16 20:00 97.4 96 13 123/58 99 03/31/16 19:00 99 Nasal Cannula 2.00 03/31/16 19:00 Nasal Cannula 2.00 03/31/16 18:00 98 03/31/16 16:00 100 03/31/16 16:00 97.7 100 16 117/65 100 03/31/16 14:00 102 I/O 03/31/16 03/31/16 03/31/16 04/01/16 04/01/16 04/01/16 06:59 14:59 22:59 06:59 14:59 22:59 Intake Total 877 ml 382 ml 333 ml 220 ml Output Total 300 ml 350 ml 650 ml 725 ml Balance 577 ml 32 ml -317 ml -505 ml Intake Oral 120 ml 150 ml 120 ml 120 ml IV Total 757 ml 232 ml 213 ml 100 ml Output Urine Total 300 ml 350 ml 650 ml 725 ml # Bowel Movements 0 0 0 0 Result Diagram: 04/01/16 0344 04/01/164 Imaging Last Impressions Renal Ultrasound 03/29/16 0000 Signed Impressions: Service Date/Time: Tuesday, March 29, 2016 12:11 - CONCLUSION: 1. Right renal cyst. 2. Bladder not visualized. José Miguel Louis MD Lower Extremity Ultrasound 03/29/16 0000 Signed Impressions: Service Date/Time: Tuesday, March 29, 2016 11:52 - CONCLUSION: Normal examination. José Miguel Louis MD Lung Scan-V Nuclear Medicine 03/28/162023 Signed Impressions: Service Date/Time: Monday, March 28, 2016 21:31 - CONCLUSION: Low probability for pulmonary embolism. Vipin Magdaleno MD Abdomen/Pelvis CT 03/28/16 1841 Signed Impressions: Service Date/Time: Monday, March 28, 2016 18:52 - CONCLUSION: 1. Diverticulosis of the sigmoid colon, cannot exclude diverticulitis. 2. Small amount of abdominal ascites. 3. Small left pleural effusion. 4. Ventral wall hernia containing fat along the left abdominal wall. 5. Cholecystectomy. 6. Anasarca. 7. LAP band procedure. Vipin Magdaleno MD Chest X-Ray 03/28/16 1333 Signed Impressions: Service Date/Time: Monday, March 28, 2016 14:49 - CONCLUSION: No acute pulmonary infiltrates. No significant change. Raul Zamora MD Objective Remarks GENERAL: Elderly female appears acutely ill. HEENT: PERRLA, EOMI. No scleral icterus or conjunctival pallor. No lid lag or facial droop. CARDIOVASCULAR: Regular rate and rhythm. No obvious murmurs to auscultation. No chest tenderness to palpation. RESPIRATORY: Scattered rhonchi and wheezing. With sob. GASTROINTESTINAL: Abdomen soft, non-tender, nondistended. BS normal. MUSCULOSKELETAL: Extremities without clubbing, cyanosis, or edema. No obvious deformities. NEUROLOGICAL: Awake, alert. No focal neurologic deficits. Moving both upper and lower extremities spontaneously. A/P Problem List: (1) Sepsis ICD Code: A41.9 Status: Acute (2) DM (diabetes mellitus) ICD Code: E11.9 Status: Acute (3) HTN (hypertension) ICD Code: I10 Status: Acute (4) CHF (congestive heart failure) ICD Code: I50.9 Status: Acute Assessment and Plan Septic syndrom. Lactic acidosis. HR 120's, RR 24. Lactic Acid 5.5 on admission and continued to trend up. LA 03/30/16 2.9. Source-suspected intra- abdominal source. S/p Blood Cultures and IV Vanc/Zosyn in ER. Check Sputum cultures in light of productive cough. Continue w/ Vanc/Cefepime. CXR negative , images reviewed. CT Abd/Pelvis w/ possible diverticulitis, images reviewed. IVF, caution w/ CHF. Repeat lactic acid, repeat labs. Duonebs as need and scheduled. Add steroids. Taper duonebs and steroids as tolerated. Consult ID for further recommendations ICU delirium. Sundowning. Patient with visual hallucinations on/off. Diverticulitis. Rectal bleeding (per patient): Start pantoprazol IV. FOBT. Monitor H/H. Consult GI specialist. Systolic CHF: Acute on Chronic. EF 30-40% per records from 09/2015. Hold Bumex as patient with low UOP, caution w/ Sepsis. BNP 2608 on admission. Improving. Consult Dr Lazo her cardiology DR. HUMMEL SAM with low UOP. Nephrosclerosis. Kidney function improving. UA neg, renal US reviewed. Consult nephrology, appreciate recommendations. On hold bumex.. Give gentle hydration, added bicarb. Monitor kidney function and UOP. Hyperkalemia: Monitor. Repeat level back to normal. Hypocalcemia: Replaced with Ca gluconate IV. With low Vit D and elevated PTH start calcitriol. Hypomagnesemia. Monitor and replace. DM2: Sliding scale w/ Accu-Cheks. Resume home Lantus once taking adequate PO. HTN: Controlled. Hold antihypertensives in light of sepsis, monitor BP. DVT Prophylaxis: SCD/Teds. Case management consulted for d/c planning as needed. Discussed with the patient, ICU nurse, nephrology. Transfer to med/surg floor Problem Qualifiers (1) Sepsis: Qualified Code: A41.9 - Sepsis, due to unspecified organism Chapis Vang MD Apr 01, 2016 13:55
[2016-04-01] MEDS: CALCITRIOL 0.25 MCG CAP PO SCH (13:59)
--- NOTE | 2016-04-01 14:05 | PD.CARD.PN ---
Subjective Subjective Remarks Dyspnea slightly better. No CP, dizziness, palpitations, PND. Objective Medications Item Value Date Time Bumetanide 1 mg 03/31/16 1800 (Bumex Inj) BID@,18/IV PUSH 04/01/16924 Atorvastatin 40 mg 03/29/16 2100 Calcium HS/PO 03/31/16 193 (Lipitor) Aspirin 81 mg 03/29/16 0900 (Ecotrin Ec) DAILY/PO 04/01/16924 Clopidogrel 75 mg 03/29/16 0900 Bisulfate DAILY/PO 04/01/16924 (Plavix) Vital Signs / I&O Vital Signs Date Time Temp Pulse Resp B/P Pulse Ox O2 Delivery O2 Flow Rate FiO2 04/01/16 10:00 113 04/01/16 08:00 Nasal Cannula 2.00 04/01/16 08:00 98.0 102 18 149/83 100 04/01/16 08:00 102 04/01/16 06:00 112 04/01/16 04:00 107 04/01/16 04:00 98.0 100 12 134/89 97 04/01/16 02:00 109 04/01/16 00:00 98.0 100 12 130/61 98 04/01/16 00:00 100 03/31/16 22:00 99 03/31/16 20:00 96 03/31/16 20:00 97.4 96 13 123/58 99 03/31/16 19:00 99 Nasal Cannula 2.00 03/31/16 19:00 Nasal Cannula 2.00 03/31/16 18:00 98 03/31/16 16:00 100 03/31/16 16:00 97.7 100 16 117/65 100 03/31/16 14:00 102 I/O 03/31/16 03/31/16 03/31/16 04/01/16 04/01/16 04/01/16 06:59 14:59 22:59 06:59 14:59 22:59 Intake Total 877 ml 382 ml 333 ml 220 ml Output Total 300 ml 350 ml 650 ml 725 ml Balance 577 ml 32 ml -317 ml -505 ml Intake Oral 120 ml 150 ml 120 ml 120 ml IV Total 757 ml 232 ml 213 ml 100 ml Output Urine Total 300 ml 350 ml 650 ml 725 ml # Bowel Movements 0 0 0 0 Physical Exam GENERAL: Well developed, well nourished. No acute distress. HEENT: Jugular venous pressure is normal. CHEST: Scattered expiratory wheezes. CARDIAC: Tachycardic regular rhythm without S3, S4. I-II/ systolic murmur lower left sternal border. ABDOMEN: Soft, nontender, no hepatosplenomegaly. Bowel sounds present. EXTREMITIES: No clubbing, cyanosis. 1+ pretibial edema. Laboratory Laboratory Tests Test 04/01/16 03:44 White Blood Count 9.4 TH/MM3 Red Blood Count 3.66 MIL/MM3 Hemoglobin 12.1 GM/DL Hematocrit 37.2 % Mean Corpuscular Volume 101.5 FL Mean Corpuscular Hemoglobin 33.0 PG Mean Corpuscular Hemoglobin 32.5 % Concent Red Cell Distribution Width 19.2 % Platelet Count 73 TH/MM3 Mean Platelet Volume 9.1 FL Neutrophils (%) (Auto) 78.6 % Lymphocytes (%) (Auto) 10.1 % Monocytes (%) (Auto) 10.3 % Eosinophils (%) (Auto) 0.7 % Basophils (%) (Auto) 0.3 % Neutrophils # (Auto) 7.3 TH/MM3 Lymphocytes # (Auto) 0.9 TH/MM3 Monocytes # (Auto) 1.0 TH/MM3 Eosinophils # (Auto) 0.1 TH/MM3 Basophils # (Auto) 0.0 TH/MM3 CBC Comment AUTO DIFF Differential Comment AUTO DIFF CONFIRMED Platelet Estimate LOW Platelet Morphology Comment NORMAL Acanthocytes OCC Keratocytes OCC Sodium Level 136 MEQ/L Potassium Level 3.3 MEQ/L Chloride Level 96 MEQ/L Carbon Dioxide Level 31.9 MEQ/L Anion Gap 8 MEQ/L Blood Urea Nitrogen 46 MG/DL Creatinine 1.91 MG/DL Estimat Glomerular Filtration 25 ML/MIN Rate Random Glucose 152 MG/DL Calcium Level 7.6 MG/DL Assessment and Plan Problem List: (1) Dilated cardiomyopathy Assessment and Plan: EF ~ 25 % on echo this admission, down from 55% in 2014. Etiology of cardiomyopathy possibly nonischemic in origin, possibly in part due to valvular disease. REC resume carvedilol 6.25 mg bid no MAKENNA-I with her renal insufficiency continue IV Bumex to help mobilize her pedal edema though I suspect at least some of this is due to chronic deep venous insufficiency (2) Aortic stenosis Assessment and Plan: Suspect the is moderate to severe. Mean gradient less than 20 mm Hg though in the setting of severe LV dysfunction. There does appear to be adequate cusp separation. The patient would be a very high risk candidate for cardiac surgery or TAVR. (3) Mitral stenosis Assessment and Plan: Possibly moderate mitral stenosis by echo. Again, patient high risk for any invasive/surgical cardiac intervention. (4) Hypertension Assessment and Plan: Mostly normotensive. To resume carvedilol, amlodipine. (5) Paroxysmal atrial fibrillation Assessment and Plan: Patient with prior history of paroxysmal atrial fib and ablation 2011. Rec continue to monitor. As I recall she has been on warfarin chronically in light of her high thromboembolic risk. (6) CAD (coronary artery disease) Assessment and Plan: Stable CAD status. No definite recent angina symptoms. Rec conservative management as possible. (7) Pulmonary hypertension Assessment and Plan: Patient with prior echoes showing pulmonary pressures as high as 97 mm Hg (2012). Echo this admission technically difficult, seems to shows pulmonary pressure 50-60 mm Hg. She has been on calcium channel daniel therapy. Rec resume amlodipine. Code Status full code Discussed Condition With patient Problem Qualifiers (1) Aortic stenosis: Qualified Code: I35.0 - Aortic valve stenosis, unspecified etiology (2) Mitral stenosis: Qualified Code: I05.0 - Mitral valve stenosis, unspecified etiology (3) Hypertension: Qualified Code: I10 - Essential hypertension (4) CAD (coronary artery disease): Qualified Code: I25.10 - Coronary artery disease involving [place] coronary artery of [place] heart without angina pectoris Will Lazo MD Apr 01, 2016 14:05
--- NOTE | 2016-04-01 16:50 | HHI.GIFU ---
Subjective Remarks Resting in bed. No distress. Nurse reports that patient has not had any bleeding or a bowel movement today. She has poor appetite, but taking small amounts. Nontender abdominal exam. (Carlee Palomo) Objective Vitals I&O Vital Signs Date Time Temp Pulse Resp B/P Pulse Ox O2 Delivery O2 Flow Rate FiO2 04/01/16 16:00 100 04/01/16 16:00 97.9 97 19 142/81 92 04/01/16 14:00 110 04/01/16 12:00 97.9 112 20 143/77 97 04/01/16 12:00 100 04/01/16 10:00 113 04/01/16 08:00 Nasal Cannula 2.00 04/01/16 08:00 98.0 102 18 149/83 100 04/01/16 08:00 102 04/01/16 06:00 112 04/01/16 04:00 107 04/01/16 04:00 98.0 100 12 134/89 97 04/01/16 02:00 109 04/01/16 00:00 98.0 100 12 130/61 98 04/01/16 00:00 100 03/31/16 22:00 99 03/31/16 20:00 96 03/31/16 20:00 97.4 96 13 123/58 99 03/31/16 19:00 99 Nasal Cannula 2.00 03/31/16 19:00 Nasal Cannula 2.00 03/31/16 18:00 98 I/O 03/31/16 03/31/16 03/31/16 04/01/16 04/01/16 04/01/16 07:00 15:00 23:00 07:00 15:00 23:00 Intake Total 877 ml 382 ml 333 ml 220 ml 512 ml Output Total 300 ml 350 ml 650 ml 725 ml 950 ml Balance 577 ml 32 ml -317 ml -505 ml -438 ml Intake Oral 120 ml 150 ml 120 ml 120 ml 200 ml IV Total 757 ml 232 ml 213 ml 100 ml 312 ml Output Urine Total 300 ml 350 ml 650 ml 725 ml 950 ml # Bowel Movements 0 0 0 0 0 Laboratory Laboratory Tests Test 04/01/16 03:44 White Blood Count 9.4 Red Blood Count 3.66 Hemoglobin 12.1 Hematocrit 37.2 Mean Corpuscular Volume 101.5 Mean Corpuscular Hemoglobin 33.0 Mean Corpuscular Hemoglobin 32.5 Concent Red Cell Distribution Width 19.2 Platelet Count 73 Mean Platelet Volume 9.1 Neutrophils (%) (Auto) 78.6 Lymphocytes (%) (Auto) 10.1 Monocytes (%) (Auto) 10.3 Eosinophils (%) (Auto) 0.7 Basophils (%) (Auto) 0.3 Neutrophils # (Auto) 7.3 Lymphocytes # (Auto) 0.9 Monocytes # (Auto) 1.0 Eosinophils # (Auto) 0.1 Basophils # (Auto) 0.0 CBC Comment AUTO DIFF Differential Comment AUTO DIFF CONFIRMED Platelet Estimate LOW Platelet Morphology Comment NORMAL Acanthocytes OCC Keratocytes OCC Sodium Level 136 Potassium Level 3.3 Chloride Level 96 Carbon Dioxide Level 31.9 Anion Gap 8 Blood Urea Nitrogen 46 Creatinine 1.91 Estimat Glomerular Filtration 25 Rate Random Glucose 152 Calcium Level 7.6 Date/Time Procedure Status Source Growth 03/30/16 01:33 Legionella Antigen - Final Complete Urine Random Urine PRESUMPTIVE NEGATIVE FOR LEGIONELLA P... 03/30/16 01:33 Streptococcus pneumoniae Antigen (M - Final Complete Urine Random Urine PRESUMPTIVE NEGATIVE FOR STREPTOCOCCU... 03/29/16 00:50 Influenza Types A,B Antigen (TED) - Final Complete Nasal Washing NEGATIVE FOR FLU A AND B ANTIGEN.... 03/28/16 14:05 Aerobic Blood Culture - Preliminary Resulted Blood Peripheral NO GROWTH IN 4 DAYS 03/28/16 14:05 Anaerobic Blood Culture - Preliminary Resulted Blood Peripheral NO GROWTH IN 4 DAYS Imaging Last Impressions Renal Ultrasound 03/29/16 0000 Signed Impressions: Service Date/Time: Tuesday, March 29, 2016 12:11 - CONCLUSION: 1. Right renal cyst. 2. Bladder not visualized. José Miguel Louis MD Lower Extremity Ultrasound 03/29/16 0000 Signed Impressions: Service Date/Time: Tuesday, March 29, 2016 11:52 - CONCLUSION: Normal examination. José Miguel Louis MD Lung Scan- Nuclear Medicine 03/28/162023 Signed Impressions: Service Date/Time: Monday, March 28, 2016 21:31 - CONCLUSION: Low probability for pulmonary embolism. Vipin Magdaleno MD Abdomen/Pelvis CT 03/28/16 1841 Signed Impressions: Service Date/Time: Monday, March 28, 2016 18:52 - CONCLUSION: 1. Diverticulosis of the sigmoid colon, cannot exclude diverticulitis. 2. Small amount of abdominal ascites. 3. Small left pleural effusion. 4. Ventral wall hernia containing fat along the left abdominal wall. 5. Cholecystectomy. 6. Anasarca. 7. LAP band procedure. Vipin Magdaleno MD Chest X-Ray 03/28/16 1333 Signed Impressions: Service Date/Time: Monday, March 28, 2016 14:49 - CONCLUSION: No acute pulmonary infiltrates. No significant change. Raul Zamora MD Physical Exam HEENT: Normocephalic; atraumatic; no jaundice. CHEST: Resp. even/unlabored, scattered rhonchi, diminished bases CARDIAC: RRR ABDOMEN: Soft, nondistended, nontender on exam; no hepatosplenomegaly; bowel sounds are present in all four quadrants. EXTREMITIES: No clubbing, cyanosis, generalized edema. SKIN: + ecchymotic area MOVERS: No focal deficits; lethargic oriented. (Carlee Palomo) Assessment and Plan Plan ASSESSMEENT: - GIB, Small amount hematochezia in ER. Pt is being treated for acute diverticulitis. She has not had any further GI bleeding. H/H went from 12.8/37.5 to 10.9/32.1. She denies ever having a colonoscopy. - Acute diverticulitis. Denies ever having diverticulitis in the past. Abdomen /Pelvis CT (03/28/16)----> 1. Diverticulosis of the sigmoid colon, cannot exclude diverticulitis. 2. Small amount of abdominal ascites. 3. Small left pleural effusion. 4. Ventral wall hernia containing fat along the left abdominal wall. 5. Cholecystectomy. 6. Anasarca. 7. LAP band procedure. Allergy to Levaquin. On Zosyn. - Sepsis. Zosyn, WBC improving. - Chronic anticoagulation. On plavix. - SAM, multiple electrolyte abnormalities. Per primary - DM, HTN, CHF. Per primary Plan - Low residue diet - Cont. PPI - Cont. Zosyn - Monitor H/H - Transfuse as necessary - Notify GI of active bleeding - Will need colonoscopy in 4-6 weeks, sooner if further bleeding - Supportive care - Further recommendations to follow based on results of above - Pt seen and examined by Dr. Ansari and myself and this note is written on his behalf (Carlee Palomo) Physician Comments Patient was seen and examined, agree with above note. we will check labs, continue supportive care. colonoscopy as outpatient in few wks. (Alirio Ansari MD) Carlee Palomo Apr 01, 2016 16:50 Alirio Ansari MD Apr 01, 2016 21:57
[2016-04-01] MEDS: ATORVASTATIN 40 MG TAB PO SCH (20:40)
[2016-04-01] MEDS: traZODone HCL 100 MG TAB PO SCH (20:40)
[2016-04-01] MEDS: CARVEDILOL 6.25 MG TAB PO SCH (20:42)
[2016-04-01] MEDS: ONDANSETRON HCL 4 MG/2 ML VIAL IVP PRN (20:43)
[2016-04-02] VITALS (10 sets, daily range): BP systolic 117–170; BP diastolic 58–81; PULSE 92–96; RESP 18–28; TEMP 95.6–98.7; O2SAT 89–96
[2016-04-02] MEDS: CHLORHEXIDINE GLUCONATE 2 % 1 PACK (2 CLOTHS) TOP SCH ×2 (04:00→23:18)
[2016-04-02] MEDS: metroNIDAZOLE 500 MG INJ 100 ML IV SCH ×3 (05:14→23:16)
[2016-04-02] MEDS: MORPHINE SULFATE 4 MG/ML INJ IV PRN (05:18)
[2016-04-02] MEDS: INSULIN ASPART SUPPLEMENTAL SCALE SQ SCH ×3 (05:30→23:13)
[2016-04-02] MEDS: CARVEDILOL 6.25 MG TAB PO SCH (10:17)
[2016-04-02] MEDS: CLOPIDOGREL 75 MG TAB PO SCH (10:17)
[2016-04-02] MEDS: guaiFENesin E.R. 600 MG TAB PO SCH ×2 (10:17→23:17)
[2016-04-02] MEDS: amLODIPine BESYLATE 5 MG TAB PO SCH (10:17)
[2016-04-02] MEDS: ASPIRIN EC 81 MG TABEC PO SCH (10:17)
[2016-04-02] MEDS: CALCITRIOL 0.25 MCG CAP PO SCH (10:17)
[2016-04-02] MEDS: CEFEPIME INJ 1,000 MG in SODIUM CHLORIDE 0.9% INJ 100 ML IV SCH ×2 (10:18→23:14)
[2016-04-02] MEDS: GABAPENTIN 100 MG CAP PO SCH ×2 (10:18→23:17)
[2016-04-02] MEDS: BUMETANIDE INJ 1 MG/4 ML VIAL IV PUSH SCH (10:18)
[2016-04-02] MEDS: MUPIROCIN 2% OINT 1 APPLIC/GM SYR EACH NARE SCH ×2 (10:19→23:16)
[2016-04-02] MEDS: PANTOPRAZOLE SODIUM 40 MG VIAL IV PUSH SCH (10:19)
[2016-04-02] MEDS: SODIUM CHLORIDE 0.9% FLUSH 5 ML FLUSH FLUSH SCH ×2 (10:19→23:14)
--- NOTE | 2016-04-02 10:49 | HHI.GIFU ---
Subjective Remarks Resting in bed. No bm today. No bleeding. Mild abdominal discomfort. ( Carlee Palomo) Objective Vitals I&O Vital Signs Date Time Temp Pulse Resp B/P Pulse Ox O2 Delivery O2 Flow Rate FiO2 04/02/16 08:17 95.6 93 20 135/70 95 04/02/16 05:23 96 04/02/16 04:00 98.7 93 18 123/61 89 04/02/16 00:00 96.2 92 28 117/58 95 04/01/16 22:00 96 04/01/16 21:00 97.3 106 23 135/84 96 04/01/16 20:00 106 04/01/16 19:46 98 Nasal Cannula 1.00 04/01/16 19:00 97 Nasal Cannula 1.00 04/01/16 18:00 113 04/01/16 16:00 100 04/01/16 16:00 97.9 97 19 142/81 92 04/01/16 14:00 110 04/01/16 12:00 97.9 112 20 143/77 97 04/01/16 12:00 100 I/O 04/01/16 04/01/16 04/01/16 04/02/16 04/02/16 04/02/16 07:00 15:00 23:00 07:00 15:00 23:00 Intake Total 220 ml 512 ml 370 ml Output Total 725 ml 950 ml 700 ml 850 ml Balance -505 ml -438 ml -330 ml -850 ml Intake Oral 120 ml 200 ml 120 ml IV Total 100 ml 312 ml 250 ml Output Urine Total 725 ml 950 ml 700 ml 850 ml # Bowel Movements 0 0 0 Laboratory Date/Time Procedure Status Source Growth 03/30/16 01:33 Legionella Antigen - Final Complete Urine Random Urine PRESUMPTIVE NEGATIVE FOR LEGIONELLA P... 03/30/16 01:33 Streptococcus pneumoniae Antigen (M - Final Complete Urine Random Urine PRESUMPTIVE NEGATIVE FOR STREPTOCOCCU... 03/29/16 00:50 Influenza Types A,B Antigen (TED) - Final Complete Nasal Washing NEGATIVE FOR FLU A AND B ANTIGEN.... 03/28/16 14:05 Aerobic Blood Culture - Preliminary Resulted Blood Peripheral NO GROWTH IN 4 DAYS 03/28/16 14:05 Anaerobic Blood Culture - Preliminary Resulted Blood Peripheral NO GROWTH IN 4 DAYS Imaging Last Impressions Renal Ultrasound 03/29/16 0000 Signed Impressions: Service Date/Time: Tuesday, March 29, 2016 12:11 - CONCLUSION: 1. Right renal cyst. 2. Bladder not visualized. José Miguel Louis MD Lower Extremity Ultrasound 03/29/16 0000 Signed Impressions: Service Date/Time: Tuesday, March 29, 2016 11:52 - CONCLUSION: Normal examination. José Miguel Louis MD Lung Scan-V Nuclear Medicine 03/28/162023 Signed Impressions: Service Date/Time: Monday, March 28, 2016 21:31 - CONCLUSION: Low probability for pulmonary embolism. Vipin Magdaleno MD Abdomen/Pelvis CT 03/28/16 1841 Signed Impressions: Service Date/Time: Monday, March 28, 2016 18:52 - CONCLUSION: 1. Diverticulosis of the sigmoid colon, cannot exclude diverticulitis. 2. Small amount of abdominal ascites. 3. Small left pleural effusion. 4. Ventral wall hernia containing fat along the left abdominal wall. 5. Cholecystectomy. 6. Anasarca. 7. LAP band procedure. Vipin Magdaleno MD Chest X-Ray 03/28/16 1333 Signed Impressions: Service Date/Time: Monday, March 28, 2016 14:49 - CONCLUSION: No acute pulmonary infiltrates. No significant change. Raul Zamora MD Physical Exam HEENT: Normocephalic; atraumatic; no jaundice. CHEST: Resp. even/unlabored, scattered rhonchi, diminished bases CARDIAC: RRR ABDOMEN: Soft, nondistended, mild diffuse tenderness; no hepatosplenomegaly; bowel sounds are present in all four quadrants. EXTREMITIES: No clubbing, cyanosis, generalized edema. 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 (Carlee Palomo [facility]) Assessment and Plan Plan ASSESSMEENT: - GIB, Small amount hematochezia in ER. Pt is being treated for acute diverticulitis. She has not had any further GI bleeding. H/H remains stable 12.37.2. She denies ever having a colonoscopy. Will schedule for colonoscopy in 4-6 weeks. - Acute diverticulitis. Denies ever having diverticulitis in the past. Abdomen /Pelvis CT (03/28/16)----> 1. Diverticulosis of the sigmoid colon, cannot exclude diverticulitis. 2. Small amount of abdominal ascites. 3. Small left pleural effusion. 4. Ventral wall hernia containing fat along the left abdominal wall. 5. Cholecystectomy. 6. Anasarca. 7. LAP band procedure. Allergy to Levaquin. On Zosyn. Will need colonoscopy in 4-6 weeks. - Sepsis. Zosyn, WBC improving. - Chronic anticoagulation. On plavix. - SAM, multiple electrolyte abnormalities. Per primary - DM, HTN, CHF. Per primary Plan - Low residue diet - Cont. PPI - Cont. Zosyn - Monitor H/H - Transfuse as necessary - Notify GI of active bleeding - Will need colonoscopy in 4-6 weeks, sooner if further bleeding - Supportive care - Further recommendations to follow based on results of above - Pt seen and examined by Dr. Ansari and myself and this note is written on his behalf (Carlee Palomo) Physician Comments Patient was seen and examined, agree with above note and plan, labs for AM ( Alirio Ansari MD) Carlee Palomo Apr 02, 2016 10:49 Alirio Ansari MD Apr 02, 2016 20:24
[2016-04-02] MEDS: ONDANSETRON HCL 4 MG/2 ML VIAL IVP PRN ×2 (11:50→23:35)
--- NOTE | 2016-04-02 12:14 | HHI.NPPN ---
Subjective General Problems: Edema Renal Failure: Chronic, Acute Interval History Patient is sleepy. Renal function is better. (Marisa Machado) Review of Systems General Constitutional: Fatigue (Marisa Machado) Objective Data Data 04/01/16 04/02/16 19:00 07:00 Intake Total 512 ml 370 ml Output Total 950 ml 1550 ml Balance -438 ml -1180 ml Intake Oral 200 ml 120 ml IV Total 312 ml 250 ml Output Urine Total 950 ml 1550 ml # Bowel Movements 0 0 Vital Signs Date Time Temp Pulse Resp B/P Pulse Ox O2 Delivery O2 Flow Rate FiO2 04/02/16 08:17 95.6 93 20 135/70 95 04/02/16 05:23 96 04/02/16 04:00 98.7 93 18 123/61 89 04/02/16 00:00 96.2 92 28 117/58 95 04/01/16 22:00 96 04/01/16 21:00 97.3 106 23 135/84 96 04/01/16 20:00 106 04/01/16 19:46 98 Nasal Cannula 1.00 04/01/16 19:00 97 Nasal Cannula 1.00 04/01/16 18:00 113 04/01/16 16:00 100 04/01/16 16:00 97.9 97 19 142/81 92 04/01/16 14:00 110 (Marisa Machado) -: 04/01/16 0344 04/01/16 0344 Drip Comment bicarb (Marisa Machado) Physical Exam General Appearance: Well Developed, Well Nourished, No Acute Distress, Comfortable, Sleeping (Marisa Machado) Neck Neck Exam: Trachea Midline (Marisa Machado) Pulmonary Resp Exam: Breath Sounds Equal, Crackles, Rhonchi (Marisa Machado) Cardiology CV Exam: Regular, Normal Sinus Rhythm (Marisa Machado) Gastrointestinal/Abdomen GI Exam: Soft, Non-Tender, Bowel Sounds Present (Marisa Machado) Musculoskeletal MS Exam: Joints Intact, Good Strength (Mairsa Machado) Integumentary Skin Exam: Clear, Warm, Normal Turgor (Marisa Machado) Extremeties Extremities Exam: Pedal Pulses Palpable, Moderate Edema (below the knees, 2+.) , Pitting Edema (Marisa Machado) Neurologic Neuro Exam: Oriented, Speech Clear, Moving All Extremities (Marisa Machado) Psychiatric Psych Exam: Appropriate Responses (Marisa Machado) Assessment/Plan Discussed Condition With: Patient Assessment Summary: SAM/Acute Renal Failure Electrolyte Assessment: Hypocalcemia Problem List: (1) Acute kidney insufficiency Plan: SAM most likely due to sepsis, decreased renal perfusion renal function is improving daily excellent urine output, will decrease bumex to once daily, change to oral route off IVF will remove way on electrolyte replacement protocol Avoid nephrotoxins, adjust medications for the patient's estimated GFR. Gadolinium is contraindicated if the GFR is below 30. labs in am (2) CKD (chronic kidney disease) stage 3, GFR 30-59 ml/min Plan: Most likely secondary to nephrosclerosis baseline creatinine 1.25 (3) Hypocalcemia Plan: improving continue calcitriol (4) Hyperkalemia Plan: now running low, replacement ordered follow up labs (5) Metabolic acidosis Plan: corrected (Marisa Machado) Plan patient was seen and examined. Repeat chemistry panel. Bumex reduced today. Avoid nephrotoxic agents. (Sharad Bey MD) Marisa Machado Apr 02, 2016 12:14 Sharad Bey MD Apr 02, 2016 20:15
--- NOTE | 2016-04-02 16:17 | HHI.PR ---
Subjective Remarks Follow-up encephalopathy. States she is okay. Intermittently answering questions and following commands. Denies headache, dizziness, nausea and abdominal pain. 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 Vitals Vital Signs Date Time Temp Pulse Resp B/P Pulse Ox O2 Delivery O2 Flow Rate FiO2 04/02/16 12:00 95.7 93 20 146/74 95 04/02/16 08:17 95.6 93 20 135/70 95 04/02/16 05:23 96 04/02/16 04:00 98.7 93 18 123/61 89 04/02/16 00:00 96.2 92 28 117/58 95 04/01/16 22:00 96 04/01/16 21:00 97.3 106 23 135/84 96 04/01/16 20:00 106 04/01/16 19:46 98 Nasal Cannula 1.00 04/01/16 19:00 97 Nasal Cannula 1.00 04/01/16 18:00 113 I/O 04/01/16 04/01/16 04/01/16 04/02/16 04/02/16 04/02/16 07:00 15:00 23:00 07:00 15:00 23:00 Intake Total 220 ml 512 ml 370 ml Output Total 725 ml 950 ml 700 ml 850 ml Balance -505 ml -438 ml -330 ml -850 ml Intake Oral 120 ml 200 ml 120 ml IV Total 100 ml 312 ml 250 ml Output Urine Total 725 ml 950 ml 700 ml 850 ml # Bowel Movements 0 0 0 Result Diagram: 04/01/16 0344 04/01/16 0344 Imaging Last Impressions Renal Ultrasound 03/29/16 0000 Signed Impressions: Service Date/Time: Tuesday, March 29, 2016 12:11 - CONCLUSION: 1. Right renal cyst. 2. Bladder not visualized. José Miguel Louis MD Lower Extremity Ultrasound 03/29/16 0000 Signed Impressions: Service Date/Time: Tuesday, March 29, 2016 11:52 - CONCLUSION: Normal examination. José Miguel Louis MD Lung Scan-V Nuclear Medicine 03/28/162023 Signed Impressions: Service Date/Time: Monday, March 28, 2016 21:31 - CONCLUSION: Low probability for pulmonary embolism. Vipin Magdaleno MD Abdomen/Pelvis CT 03/28/16 1841 Signed Impressions: Service Date/Time: Monday, March 28, 2016 18:52 - CONCLUSION: 1. Diverticulosis of the sigmoid colon, cannot exclude diverticulitis. 2. Small amount of abdominal ascites. 3. Small left pleural effusion. 4. Ventral wall hernia containing fat along the left abdominal wall. 5. Cholecystectomy. 6. Anasarca. 7. LAP band procedure. Vipin Magdaleno MD Chest X-Ray 03/28/16 1333 Signed Impressions: Service Date/Time: Monday, March 28, 2016 14:49 - CONCLUSION: No acute pulmonary infiltrates. No significant change. Raul Zamora MD Objective Remarks GENERAL: Elderly female in no distress HEENT: PERRLA, EOMI. No scleral icterus or conjunctival pallor. No lid lag or facial droop. CARDIOVASCULAR: Regular rate and rhythm. Systolic murmur noted RESPIRATORY: Decreased breath sounds GASTROINTESTINAL: Abdomen soft, non-tender, nondistended. BS normal. MUSCULOSKELETAL: Extremities without clubbing, cyanosis but with bilateral leg edema. No obvious deformities. NEUROLOGICAL: Awake, alert. No focal neurologic deficits. Moving both upper and lower extremities spontaneously. A/P Problem List: (1) Sepsis ICD Code: A41.9 Status: Acute (2) DM (diabetes mellitus) ICD Code: E11.9 Status: Acute (3) HTN (hypertension) ICD Code: I10 Status: Acute (4) CHF (congestive heart failure) ICD Code: I50.9 Status: Acute Assessment and Plan Septic shock. Source-suspected intra-abdominal source. Continue w/ cefepime and Flagyl. CXR negative, images reviewed. CT Abd/Pelvis w/ possible diverticulitis, images reviewed. Encephalopathy/ICU delirium. . Patient with visual hallucinations on/ off. Diverticulitis. Rectal bleeding (per patient): Continue PPI no further bleeding. Monitor H/H. Consult GI specialist who cleared patient for Coumadin history of A. fib. We'll clarify with family why patient not on Coumadin when she got admitted patient only on aspirin and Plavix. Systolic CHF: Acute on Chronic. EF 30-40% per records from 09/2015. Improving on Bumex and Coreg. MAKENNA inhibitor on hold secondary to acute kidney injury Consulted Dr Lazo SAM with low UOP. Nephrosclerosis. Kidney function improving. UA neg, renal US reviewed. Consult nephrology, appreciate recommendations. Monitor kidney function and UOP. Hyperkalemia: Monitor. Hypocalcemia: Replaced with Ca gluconate IV. With low Vit D and elevated PTH start calcitriol. Hypomagnesemia. Monitor and replace. DM2: Sliding scale w/ Accu-Cheks. Resume home Lantus once taking adequate PO. HTN: Controlled. Hold antihypertensives in light of sepsis, monitor BP. Thrombocytopenia likely secondary to sepsis. Will monitor. DVT Prophylaxis: SCD/Teds. Discharge Planning Not stable for discharge Problem Qualifiers (1) Sepsis: Qualified Code: A41.9 - Sepsis, due to unspecified organism Shant Rios MD Apr 02, 2016 16:17 Problem Qualifiers (1) Sepsis: Qualified Code: A41.9 - Sepsis, due to unspecified organism Shant Rios MD Apr 02, 2016 16:17
--- NOTE | 2016-04-02 16:56 | PD.CARD.PN ---
Subjective Subjective Remarks Somnolent. Complains of pain "all over". No angina, dyspnea, dizziness, palpitations. Objective Medications Item Value Date Time Bumetanide 1 mg 04/03/16 0900 (Bumetanide) DAILY/PO Amlodipine 5 mg 04/02/16 0900 Besylate DAILY/PO 04/02/16 1017 (Norvasc) Carvedilol 6.25 mg 04/01/16 2100 (Coreg) Q12HR/PO 04/02/16 1017 Atorvastatin 40 mg 03/29/16 2100 Calcium HS/PO 04/01/162039 (Lipitor) Clopidogrel 75 mg 03/29/16 0900 Bisulfate DAILY/PO 04/02/16 1017 (Plavix) Aspirin 81 mg 03/29/16 0900 (Ecotrin Ec) DAILY/PO 04/02/16 1017 Vital Signs / I&O Vital Signs Date Time Temp Pulse Resp B/P Pulse Ox O2 Delivery O2 Flow Rate FiO2 04/02/16 12:00 95.7 93 20 146/74 95 04/02/16 08:17 95.6 93 20 135/70 95 04/02/16 05:23 96 04/02/16 04:00 98.7 93 18 123/61 89 04/02/16 00:00 96.2 92 28 117/58 95 04/01/16 22:00 96 04/01/16 21:00 97.3 106 23 135/84 96 04/01/16 20:00 106 04/01/16 19:46 98 Nasal Cannula 1.00 04/01/16 19:00 97 Nasal Cannula 1.00 04/01/16 18:00 113 I/O 04/01/16 04/01/16 04/01/16 04/02/16 04/02/16 04/02/16 06:59 14:59 22:59 06:59 14:59 22:59 Intake Total 220 ml 512 ml 370 ml Output Total 725 ml 950 ml 700 ml 850 ml Balance -505 ml -438 ml -330 ml -850 ml Intake Oral 120 ml 200 ml 120 ml IV Total 100 ml 312 ml 250 ml Output Urine Total 725 ml 950 ml 700 ml 850 ml # Bowel Movements 0 0 0 Physical Exam GENERAL: Well developed, well nourished. No acute distress. HEENT: Jugular venous pressure is normal. CHEST: Minimal scattered expiratory wheezes. CARDIAC: Regular rate and rhythm without S3, S4. I-II/ systolic murmur lower left sternal border. ABDOMEN: Soft, nontender, no hepatosplenomegaly. Bowel sounds present. EXTREMITIES: No clubbing, cyanosis. 1+ pretibial edema. Laboratory Laboratory Tests Test 03/31/16 03/31/16 03/31/16 04/01/16 03:30 10:47 13:45 03:44 Sodium Level 132 MEQ/L (136-145) Chloride Level 95 MEQ/L 96 MEQ/L (98-107) (98-107) Blood Urea Nitrogen 46 MG/DL (7-18) 46 MG/DL (7-18) Creatinine 2.11 MG/DL 1.91 MG/DL (0.50-1.00) (0.50-1.00) Estimat Glomerular Filtration 23 ML/MIN (>89) 25 ML/MIN (>89) Rate Random Glucose 250 MG/DL 152 MG/DL (74-106) (74-106) Calcium Level 7.0 MG/DL 7.6 MG/DL (8.5-10.1) (8.5-10.1) Protein Corrected Calcium 7.2 MG/DL (8.5-10.1) Albumin 2.2 GM/DL (3.4-5.0) 25-Hydroxy Vitamin D Total 25.0 ng/ML (30-100) Parathyroid Hormone (Intact) 219.0 PG/ML (12.4-76.8) Red Blood Count 3.66 MIL/MM3 (4.00-5.30) Mean Corpuscular Volume 101.5 FL (80.0-100.0) Red Cell Distribution Width 19.2 % (11.6-17.2) Platelet Count 73 TH/MM3 (150-450) Neutrophils (%) (Auto) 78.6 % (16.0-70.0) Monocytes (%) (Auto) 10.3 % (0.0-8.0) Lymphocytes # (Auto) 0.9 TH/MM3 (1.0-4.8) Monocytes # (Auto) 1.0 TH/MM3 (0-0.9) Platelet Estimate LOW (NORMAL) Acanthocytes OCC (NORMAL) Keratocytes OCC (NORMAL) Potassium Level 3.3 MEQ/L (3.5-5.1) Assessment and Plan Problem List: (1) Dilated cardiomyopathy Assessment and Plan: EF ~ 25 % on echo this admission, down from 55% in 2014. Etiology of cardiomyopathy possibly nonischemic in origin, possibly in part due to valvular disease. REC increase carvedilol to 12.5 mg bid no MAKENNA-I with her renal insufficiency continue Bumex, agree with change to oral (2) Aortic stenosis Assessment and Plan: Suspect the is moderate to severe. Mean gradient less than 20 mm Hg though in the setting of severe LV dysfunction. There does appear to be adequate cusp separation. The patient would be a very high risk candidate for cardiac surgery or even TAVR. (3) Mitral stenosis Assessment and Plan: Possibly moderate mitral stenosis by echo. Again, patient high risk for any invasive/surgical cardiac intervention. (4) Hypertension Assessment and Plan: Mostly normotensive. Continue to monitor. (5) Paroxysmal atrial fibrillation Assessment and Plan: Patient with prior history of paroxysmal atrial fib and ablation 2011. Rec continue to monitor. As I recall she has been on warfarin chronically in light of her high thromboembolic risk but problems with recent GI bleeding. (6) CAD (coronary artery disease) Assessment and Plan: Stable CAD status. No definite recent angina symptoms. Rec conservative management as possible. (7) Pulmonary hypertension Assessment and Plan: Patient with prior echoes showing pulmonary pressures as high as 97 mm Hg (2012). Echo this admission technically difficult, seems to shows pulmonary pressure 50-60 mm Hg. Rec continue amlodipine. Code Status full code Discussed Condition With patient Problem Qualifiers (1) Aortic stenosis: Qualified Code: I35.0 - Aortic valve stenosis, unspecified etiology (2) Mitral stenosis: Qualified Code: I05.0 - Mitral valve stenosis, unspecified etiology (3) Hypertension: Qualified Code: I10 - Essential hypertension (4) CAD (coronary artery disease): Qualified Code: I25.10 - Coronary artery disease involving [place] coronary artery of [place] heart without angina pectoris Will Lazo MD Apr 02, 2016 16:56
[2016-04-02] MEDS: ATORVASTATIN 40 MG TAB PO SCH (23:17)
[2016-04-02] MEDS: CARVEDILOL 12.5 MG TAB PO SCH (23:17)
[2016-04-02] MEDS: traZODone HCL 100 MG TAB PO SCH (23:17)
[2016-04-02] MEDS: PANTOPRAZOLE SOD 40 MG DELAYED RELEASE TAB PO SCH (23:17)
[2016-04-03] VITALS (7 sets, daily range): BP systolic 115–141; BP diastolic 52–83; PULSE 93–110; RESP 16–21; TEMP 95.4–97.2; O2SAT 92–95
[2016-04-03] MEDS: metroNIDAZOLE 500 MG INJ 100 ML IV SCH ×3 (07:51→20:37)
[2016-04-03] MEDS: INSULIN ASPART SUPPLEMENTAL SCALE SQ SCH ×4 (07:55→20:37)
--- NOTE | 2016-04-03 08:21 | PD.CARD.PN ---
Subjective Subjective Remarks Pain "all over". Mild dyspnea. No dizziness, nausea, abdominal pain, palpitations. Objective Medications Item Value Date Time Bumetanide 1 mg 04/03/16 0900 (Bumetanide) DAILY/PO Carvedilol 12.5 mg 04/02/16 2100 (Coreg) Q12HR/PO 04/02/162316 Amlodipine 5 mg 04/02/16 0900 Besylate DAILY/PO 04/02/16 1017 (Norvasc) Atorvastatin 40 mg 03/29/16 2100 Calcium HS/PO 04/02/162316 (Lipitor) Aspirin 81 mg 03/29/16 0900 (Ecotrin Ec) DAILY/PO 04/02/16 101 Clopidogrel 75 mg 03/29/16 0900 Bisulfate DAILY/PO 04/02/16 101 (Plavix) Vital Signs / I&O Vital Signs Date Time Temp Pulse Resp B/P Pulse Ox O2 Delivery O2 Flow Rate FiO2 04/03/16 04:27 97.0 108 20 115/63 92 04/03/16 00:36 96.9 95 16 126/52 95 04/02/16 21:00 96.9 96 20 125/73 96 04/02/16 20:00 94 04/02/16 20:00 Nasal Cannula 1.00 04/02/16 17:00 153/76 04/02/16 16:00 95.9 96 20 170/81 96 04/02/16 12:00 95.7 93 20 146/74 95 04/02/16 09:30 Nasal Cannula 1.00 04/02/16 09:30 92 I/O 04/02/16 04/02/16 04/02/16 04/03/16 04/03/16 04/03/16 06:59 14:59 22:59 06:59 14:59 22:59 Intake Total 240 ml Output Total 850 ml 850 ml Balance -850 ml -610 ml Intake Oral 240 ml Output Urine Total 850 ml 850 ml # Voids 1 2 # Bowel Movements 0 0 0 Physical Exam GENERAL: Well developed, well nourished. No acute distress. HEENT: Jugular venous pressure is normal. CHEST: Diminished breath sounds diffusely. CARDIAC: Regular rate and rhythm without S3, S4. I-II/ systolic murmur lower left sternal border. ABDOMEN: Soft, nontender, no hepatosplenomegaly. Bowel sounds present. EXTREMITIES: No clubbing, cyanosis, pretibial edema. Assessment and Plan Problem List: (1) Dilated cardiomyopathy Assessment and Plan: EF ~ 25 % on echo this admission, down from 55% in 2014. Etiology of cardiomyopathy possibly nonischemic in origin, possibly in part due to valvular disease. Overall rec conservative management. Patient appears compensated at present. REC continue carvedilol, oral Bumex no MAKENNA-I with her renal insufficiency will f/u as needed rest of hospital stay (2) Aortic stenosis Assessment and Plan: Suspect the is moderate to severe. Mean gradient less than 20 mm Hg though in the setting of severe LV dysfunction. There does appear to be adequate cusp separation. The patient would be a very high risk candidate for cardiac surgery or even TAVR. Rec conservative therapy as possible. Will repeat echo in 3-4 months. (3) Mitral stenosis Assessment and Plan: Possibly moderate mitral stenosis by echo. Again, patient high risk for any invasive/surgical cardiac intervention. (4) Hypertension Assessment and Plan: Normotensive. Continue same regimen. (5) Paroxysmal atrial fibrillation Assessment and Plan: Patient with prior history of paroxysmal atrial fib and ablation 2011. Patient has been on warfarin chronically in light of her high thromboembolic risk but problems with recent GI bleeding. Rare atrial tachycardia, short-lived, on monitoring. No definite atrial fib. (6) CAD (coronary artery disease) Assessment and Plan: Stable CAD status. No definite recent angina symptoms. Rec conservative management as possible. Continue aspirin, Plavix, beta daniel. (7) Pulmonary hypertension Assessment and Plan: Patient with prior echoes showing pulmonary pressures as high as 97 mm Hg (2012). Echo this admission technically difficult, seems to shows pulmonary pressure 50-60 mm Hg. Rec continue amlodipine. Assessment and Plan As above. Will f/u PRN rest of hospital stay, f/u patient in the office. Code Status full code Discussed Condition With patient Problem Qualifiers (1) Aortic stenosis: Qualified Code: I35.0 - Aortic valve stenosis, unspecified etiology (2) Mitral stenosis: Qualified Code: I05.0 - Mitral valve stenosis, unspecified etiology (3) Hypertension: Qualified Code: I10 - Essential hypertension (4) CAD (coronary artery disease): Qualified Code: I25.10 - Coronary artery disease involving [place] coronary artery of [place] heart without angina pectoris Will Lazo MD Apr 03, 2016 08:21
[2016-04-03] MEDS: CALCITRIOL 0.25 MCG CAP PO SCH ×2 (09:00→10:08)
[2016-04-03] MEDS: CLOPIDOGREL 75 MG TAB PO SCH ×2 (09:00→10:09)
[2016-04-03] MEDS: BUMETANIDE 1 MG TAB PO SCH ×2 (09:00→10:08)
[2016-04-03] MEDS: ASPIRIN EC 81 MG TABEC PO SCH ×2 (09:00→10:08)
[2016-04-03] MEDS: SODIUM CHLORIDE 0.9% FLUSH 5 ML FLUSH FLUSH SCH ×2 (09:00→20:37)
[2016-04-03] MEDS: amLODIPine BESYLATE 5 MG TAB PO SCH ×2 (09:00→10:09)
[2016-04-03] MEDS: MUPIROCIN 2% OINT 1 APPLIC/GM SYR EACH NARE SCH ×2 (10:07→20:37)
[2016-04-03] MEDS: GABAPENTIN 100 MG CAP PO SCH ×2 (10:08→20:36)
[2016-04-03] MEDS: guaiFENesin E.R. 600 MG TAB PO SCH ×2 (10:08→20:36)
[2016-04-03] MEDS: CARVEDILOL 12.5 MG TAB PO SCH ×2 (10:08→20:36)
[2016-04-03] MEDS: PANTOPRAZOLE SOD 40 MG DELAYED RELEASE TAB PO SCH ×2 (10:10→20:36)
[2016-04-03] MEDS: CEFEPIME INJ 1,000 MG in SODIUM CHLORIDE 0.9% INJ 100 ML IV SCH ×2 (10:26→20:37)
--- NOTE | 2016-04-03 10:59 | HHI.NPPN ---
Subjective General Problems: Edema Renal Failure: Chronic, Acute Interval History Renal function is better. She is very confused/agitated this morning. She does follow commands. (Marisa Machado) Review of Systems General Constitutional: Fatigue General Remarks difficult to obtain due to mental status (Marisa Machado) Objective Data Data 04/02/16 04/03/16 18:59 06:59 Intake Total 240 ml Output Total 850 ml Balance -610 ml Intake Oral 240 ml Output Urine Total 850 ml # Voids 3 # Bowel Movements 0 0 Vital Signs Date Time Temp Pulse Resp B/P Pulse Ox O2 Delivery O2 Flow Rate FiO2 04/03/16 08:00 95.4 102 20 133/83 95 04/03/16 04:27 97.0 108 20 115/63 92 04/03/16 00:36 96.9 95 16 126/52 95 04/02/16 21:00 96.9 96 20 125/73 96 04/02/16 20:00 94 04/02/16 20:00 Nasal Cannula 1.00 04/02/16 17:00 153/76 04/02/16 16:00 95.9 96 20 170/81 96 04/02/16 12:00 95.7 93 20 146/74 95 (Marisa Machado) -: 04/01/16 0344 04/01/16 0344 Physical Exam General Appearance: Well Developed, Well Nourished, Comfortable, Anxious (Marisa Machado) Eyes Eye Exam: Pupils Equal (Marisa Machado) Throat Throat Exam: Oral Mucosa [place] & Moist (Marisa Machado) Neck Neck Exam: Trachea Midline (Marisa Machado) Pulmonary Resp Exam: Clear Bilaterally, Breath Sounds Equal (Marisa Machado) Cardiology CV Exam: Regular, Normal Sinus Rhythm (Marisa Machado) Gastrointestinal/Abdomen GI Exam: Soft, Non-Tender, Bowel Sounds Present (Marisa Machado) Musculoskeletal MS Exam: Joints Intact, Good Strength (Marisa Mcahado) Integumentary Skin Exam: Clear, Warm, Normal Turgor (Marisa Machado) Extremeties Extremities Exam: Pedal Pulses Palpable, Moderate Edema (below the knees, 2+.) (Marisa Machado) Neurologic Neuro Exam: Oriented, Speech Clear, Moving All Extremities (Marisa Machado) Psychiatric Psych Exam: Appropriate Responses (Marisa Machado) VTE Prophylaxis Device: SCDs (Marisa Machado) Assessment/Plan Discussed Condition With: Patient Assessment Summary: SAM/Acute Renal Failure Electrolyte Assessment: Hypocalcemia Problem List: (1) Acute kidney insufficiency Plan: SAM most likely due to sepsis, decreased renal perfusion renal function continues to improve excellent urine output continue Bumex orally once daily, monitor fluid volume status, noted EF 25% Avoid IVF, oral intake encouraged way was removed, she is non oliguric, incontinent on electrolyte replacement protocol Avoid nephrotoxins, adjust medications for the patient's estimated GFR. Gadolinium is contraindicated if the GFR is below 30. labs in am (2) CKD (chronic kidney disease) stage 3, GFR 30-59 ml/min Plan: Most likely secondary to nephrosclerosis baseline creatinine 1.25 (3) Hypocalcemia Plan: low Vit D, elevated PTH calcium improving continue calcitriol (4) Hyperkalemia Plan: replaced, check metabolic profile in am (5) Metabolic acidosis Plan: corrected (6) CHF (congestive heart failure) Plan: also has A fib, Aortic stenosis cardiology has followed, will see PRN during until discharge, will follow up outpatient (Marisa Machado) Plan patient was seen and examined. Labs are not available. She is more agitated today. Discussed with RN. Monitor labs and urine output. (Sharad Bey MD) Marisa Machado Apr 03, 2016 10:59 Sharad Bey MD Apr 03, 2016 16:19
[2016-04-03 13:29] LABS: BLOOD, URINE TRACE (NEG); COMMENT (UR) CULT NOT INDICATED; CULTURE IF INDICATED CULT NOT INDICATED; GLUCOSE,URINE NEG (NEG); GRANULAR CAST, URINE 2 /lpf; HYALINE CAST, URINE 4 /lpf (RARE); KETONE, URINE 10 mg/dL (NEG); MUCUS URINE FEW /lpf (OCC); NITRITE,URINE NEG (NEG); URINE COLOR YELLOW (YELLW/STRAW)
--- NOTE | 2016-04-03 13:31 | HHI.PR ---
Subjective Remarks Follow-up encephalopathy. Patient is oriented to person and place. Complaining of abdominal pain and dysuria. Repeat urinalysis negative. Labs are pending. Discussed with RN Objective Vitals Vital Signs Date Time Temp Pulse Resp B/P Pulse Ox O2 Delivery O2 Flow Rate FiO2 04/03/16 12:00 95.7 93 20 118/56 94 04/03/16 08:00 95.4 102 20 133/83 95 04/03/16 04:27 97.0 108 20 115/63 92 04/03/16 00:36 96.9 95 16 126/52 95 04/02/16 21:00 96.9 96 20 125/73 96 04/02/16 20:00 96 Nasal Cannula 1.00 04/02/16 20:00 94 04/02/16 20:00 Nasal Cannula 1.00 04/02/16 17:00 153/76 04/02/16 16:00 95.9 96 20 170/81 96 I/O 04/02/16 04/02/16 04/02/16 04/03/16 04/03/16 04/03/16 06:59 14:59 22:59 06:59 14:59 22:59 Intake Total 240 ml Output Total 850 ml 850 ml Balance -850 ml -610 ml Intake Oral 240 ml Output Urine Total 850 ml 850 ml Bladder Scan Volume Amount 235 ml # Voids 1 2 # Bowel Movements 0 0 0 Result Diagram: 04/01/16 0344 04/01/16 0344 Imaging Last Impressions Renal Ultrasound 03/29/16 0000 Signed Impressions: Service Date/Time: Tuesday, March 29, 2016 12:11 - CONCLUSION: 1. Right renal cyst. 2. Bladder not visualized. José Miguel Louis MD Lower Extremity Ultrasound 03/29/16 0000 Signed Impressions: Service Date/Time: Tuesday, March 29, 2016 11:52 - CONCLUSION: Normal examination. José Miguel Louis MD Lung Scan- Nuclear Medicine 03/28/162023 Signed Impressions: Service Date/Time: Monday, March 28, 2016 21:31 - CONCLUSION: Low probability for pulmonary embolism. Vipin Magdaleno MD Abdomen/Pelvis CT 03/28/16 1841 Signed Impressions: Service Date/Time: Monday, March 28, 2016 18:52 - CONCLUSION: 1. Diverticulosis of the sigmoid colon, cannot exclude diverticulitis. 2. Small amount of abdominal ascites. 3. Small left pleural effusion. 4. Ventral wall hernia containing fat along the left abdominal wall. 5. Cholecystectomy. 6. Anasarca. 7. LAP band procedure. Vipin Magdaleno MD Chest X-Ray 03/28/16 1333 Signed Impressions: Service Date/Time: Monday, March 28, 2016 14:49 - CONCLUSION: No acute pulmonary infiltrates. No significant change. Raul Zamora MD Objective Remarks GENERAL: Elderly female in no distress HEENT: PERRLA, EOMI. No scleral icterus or conjunctival pallor. No lid lag or facial droop. CARDIOVASCULAR: Regular rate and rhythm. Systolic murmur noted RESPIRATORY: Decreased breath sounds GASTROINTESTINAL: Abdomen soft, slightly tender hypogastric area, nondistended. BS normal. MUSCULOSKELETAL: Extremities without clubbing, cyanosis but with bilateral leg edema. No obvious deformities. NEUROLOGICAL: Awake, alert. No focal neurologic deficits. Moving both upper and lower extremities spontaneously. A/P Problem List: (1) Sepsis ICD Code: A41.9 Status: Acute (2) DM (diabetes mellitus) ICD Code: E11.9 Status: Acute (3) HTN (hypertension) ICD Code: I10 Status: Acute (4) CHF (congestive heart failure) ICD Code: I50.9 Status: Acute Assessment and Plan Septic shock. Source-suspected intra-abdominal source. Continue w/ cefepime and Flagyl. CXR negative, images reviewed. CT Abd/Pelvis w/ possible diverticulitis, images reviewed. Complaining of lower abdominal pain and dysuria. Repeat urinalysis unremarkable. If repeat CBC shows leukocytosis, will consider repeating CT of the abdomen and pelvis. Encephalopathy/ICU delirium. . Patient with visual hallucinations on/ off. Diverticulitis. Rectal bleeding (per patient): Continue PPI no further bleeding. Monitor H/H. Consult GI specialist who cleared patient for Coumadin history of A. fib. We'll clarify with family why patient not on Coumadin when she got admitted patient only on aspirin and Plavix. Systolic CHF: Acute on Chronic. EF 30-40% per records from 09/2015. Improving on Bumex and Coreg. MAKENNA inhibitor on hold secondary to acute kidney injury Consulted Dr Lazo SAM with low UOP. Nephrosclerosis. Kidney function improving. UA neg, renal US reviewed. Consult nephrology, appreciate recommendations. Monitor kidney function and UOP. Labs pending Hyperkalemia: Monitor. Hypocalcemia: Replaced with Ca gluconate IV. With low Vit D and elevated PTH start calcitriol. Hypomagnesemia. Monitor and replace. DM2: Sliding scale w/ Accu-Cheks. Resume home Lantus once taking adequate PO. HTN: Controlled. Hold antihypertensives in light of sepsis, monitor BP. Thrombocytopenia likely secondary to sepsis. Will monitor. DVT Prophylaxis: SCD/Teds. Discharge Planning Not stable for discharge Problem Qualifiers (1) Sepsis: Qualified Code: A41.9 - Sepsis, due to unspecified organism (2) DM (diabetes mellitus): Qualified Code: E08.22 - Diabetes mellitus due to underlying condition with stage 5 chronic kidney disease not on chronic dialysis, with long-term current use of insulin Shant Rios MD Apr 03, 2016 13:31
--- NOTE | 2016-04-03 15:04 | HHI.GIFU ---
Subjective Remarks Resting in bed. Lethargic. Lower abdominal tenderness. No bm in 5 days. ( Carlee Palomo [place] STA[facility]) Objective Vitals I&O Vital Signs Date Time Temp Pulse Resp B/P Pulse Ox O2 Delivery O2 Flow Rate FiO2 04/03/16 12:00 95.7 93 20 118/56 94 04/03/16 08:00 95.4 102 20 133/83 95 04/03/16 04:27 97.0 108 20 115/63 92 04/03/16 00:36 96.9 95 16 126/52 95 04/02/16 21:00 96.9 96 20 125/73 96 04/02/16 20:00 96 Nasal Cannula 1.00 04/02/16 20:00 94 04/02/16 20:00 Nasal Cannula 1.00 04/02/16 17:00 153/76 04/02/16 16:00 95.9 96 20 170/81 96 I/O 04/02/16 04/02/16 04/02/16 04/03/16 04/03/16 04/03/16 06:59 14:59 22:59 06:59 14:59 22:59 Intake Total 240 ml Output Total 850 ml 850 ml Balance -850 ml -610 ml Intake Oral 240 ml Output Urine Total 850 ml 850 ml Bladder Scan Volume Amount 235 ml # Voids 1 2 # Bowel Movements 0 0 0 Laboratory Laboratory Tests Test 04/03/16 13:16 Urine Color YELLOW Urine Turbidity CLEAR Urine pH 5.0 Urine Specific [place] 1.012 Urine Protein TRACE Urine Glucose (UA) NEG Urine Ketones 10 Urine Occult Blood TRACE Urine Nitrite NEG Urine Bilirubin NEG Urine Urobilinogen LESS THAN 2.0 Urine Leukocyte Esterase NEG Urine RBC LESS THAN 1 Urine WBC 3 Urine Hyaline Casts 4 Urine Granular Casts 2 Urine Mucus FEW Microscopic Urinalysis Comment CULT NOT INDICATED Date/Time Procedure Status Source Growth 03/30/16 01:33 Legionella Antigen - Final Complete Urine Random Urine PRESUMPTIVE NEGATIVE FOR LEGIONELLA P... 03/30/16 01:33 Streptococcus pneumoniae Antigen (M - Final Complete Urine Random Urine PRESUMPTIVE NEGATIVE FOR STREPTOCOCCU... Imaging Last Impressions Renal Ultrasound 03/29/16 0000 Signed Impressions: Service Date/Time: Tuesday, March 29, 2016 12:11 - CONCLUSION: 1. Right renal cyst. 2. Bladder not visualized. José Miguel Louis MD Lower Extremity Ultrasound 03/29/16 0000 Signed Impressions: Service Date/Time: Tuesday, March 29, 2016 11:52 - CONCLUSION: Normal examination. José Miguel Louis MD Lung Scan-V Nuclear Medicine 03/28/162023 Signed Impressions: Service Date/Time: Monday, March 28, 2016 21:31 - CONCLUSION: Low probability for pulmonary embolism. Vipin Magdaleno MD Abdomen/Pelvis CT 03/28/16 1841 Signed Impressions: Service Date/Time: Monday, March 28, 2016 18:52 - CONCLUSION: 1. Diverticulosis of the sigmoid colon, cannot exclude diverticulitis. 2. Small amount of abdominal ascites. 3. Small left pleural effusion. 4. Ventral wall hernia containing fat along the left abdominal wall. 5. Cholecystectomy. 6. Anasarca. 7. LAP band procedure. Vipin Magdaleno MD Chest X-Ray 03/28/16 1333 Signed Impressions: Service Date/Time: Monday, March 28, 2016 14:49 - CONCLUSION: No acute pulmonary infiltrates. No significant change. Raul Zamora MD Physical Exam HEENT: Normocephalic; atraumatic; no jaundice. CHEST: Resp. even/unlabored, scattered rhonchi, diminished bases CARDIAC: RRR ABDOMEN: Soft, nondistended, mild-mod lower abdominal tenderness; no hepatosplenomegaly; bowel sounds are present in all four quadrants. EXTREMITIES: No clubbing, cyanosis, generalized edema. SKIN: + ecchymotic area WOOD BORER: No focal deficits; lethargic oriented. (Carlee Palomo) Assessment and Plan Plan ASSESSMEENT: - GIB, Small amount hematochezia in ER. Pt is being treated for acute diverticulitis. She has not had any further GI bleeding. H/H remains stable 12.1/37.2. She denies ever having a colonoscopy. Will schedule for colonoscopy in 4-6 weeks. - Acute diverticulitis. Denies ever having diverticulitis in the past. Abdomen /Pelvis CT (03/28/16)----> 1. Diverticulosis of the sigmoid colon, cannot exclude diverticulitis. 2. Small amount of abdominal ascites. 3. Small left pleural effusion. 4. Ventral wall hernia containing fat along the left abdominal wall. 5. Cholecystectomy. 6. Anasarca. 7. LAP band procedure. Allergy to Levaquin. Flagyl, Cefepime. Will need colonoscopy in 4-6 weeks. - Constipation. No BM x 5 days. More tender on exam. Miralax 17gram po daily - Sepsis. Flagyl, Cefepime. WBC improving. - Chronic anticoagulation. On plavix. - SAM, multiple electrolyte abnormalities. Per primary - DM, HTN, CHF. Per primary Plan - Low residue diet - KUB - Add Miralax - Cont. PPI - Cont. Flagyl, Cefpime - Monitor H/H - Transfuse as necessary - Notify GI of active bleeding - Will need colonoscopy in 4-6 weeks, sooner if further bleeding - Supportive care - Further recommendations to follow based on results of above - Pt seen and examined by Dr. Ansari and myself and this note is written on his behalf (Carlee Palomo) Physician Comments Patient was seen and examined, agree with above note and plan, supportive care. (Alirio Ansari MD) Carlee Palomo Apr 03, 2016 15:04 Alirio Ansari MD Apr 03, 2016 20:33
[2016-04-03] MEDS ORDERED: BISACODYL 10 MG SUPP PR ONE (19:15)
[2016-04-03] MEDS ORDERED: DOCUSATE SODIUM 100 MG CAP PO PRN (19:15)
[2016-04-03] MEDS: ATORVASTATIN 40 MG TAB PO SCH (20:36)
[2016-04-03] MEDS: ONDANSETRON HCL 4 MG/2 ML VIAL IVP PRN (20:36)
[2016-04-03] MEDS: traZODone HCL 100 MG TAB PO SCH (20:36)
[2016-04-03] MEDS: DOCUSATE SODIUM 50 MG/SENNA 8.6 MG TAB PO SCH (20:36)
[2016-04-04] VITALS (7 sets, daily range): BP systolic 106–140; BP diastolic 54–96; PULSE 89–101; RESP 20–21; TEMP 95.6–98; O2SAT 94–98
[2016-04-04] MEDS: CHLORHEXIDINE GLUCONATE 2 % 1 PACK (2 CLOTHS) TOP SCH (04:00)
[2016-04-04] MEDS: metroNIDAZOLE 500 MG INJ 100 ML IV SCH ×3 (05:35→21:25)
[2016-04-04] MEDS: INSULIN ASPART SUPPLEMENTAL SCALE SQ SCH ×4 (07:00→21:00)
[2016-04-04 07:59] LABS: BICARBONATE 27.2 MEQ/L (21.0-32.0); MAGNESIUM 1.1 MG/DL (1.5-2.5); POTASSIUM 3.4 MEQ/L (3.5-5.1)
[2016-04-04 08:00] LABS: AUTOMATED NEUTROPHIL # 7.9 TH/MM3 (1.8-7.7); BASOPHIL % 0.4 % (0.0-2.0); EOSINOPHIL % 0.1 % (0.0-4.0); HEMATOCRIT 38.8 % (35.0-46.0); HEMO FLAGS DIFF FINAL; LYMPH % 7.4 % (9.0-44.0); LYMPHOCYTE # 0.7 TH/MM3 (1.0-4.8); MEAN CELL VOLUME 102.1 FL (80.0-100.0); MEAN CORPUSCULAR HEMOGLOBIN 32.6 PG (27.0-34.0); MONO % 9.4 % (0.0-8.0); NEUT % 82.7 % (16.0-70.0); PLATELET COUNT 110 TH/MM3 (150-450); RED CELL DISTRIBUTION WIDTH 19.8 % (11.6-17.2); WHITE BLOOD COUNT 9.5 TH/MM3 (4.0-11.0)
[2016-04-04] MEDS: CARVEDILOL 12.5 MG TAB PO SCH ×2 (09:00→21:27)
[2016-04-04] MEDS: SODIUM CHLORIDE 0.9% FLUSH 5 ML FLUSH FLUSH SCH ×2 (09:00→21:00)
[2016-04-04] MEDS: POLYETHYLENE GLYCOL 17 GM PKG PO SCH (09:00)
[2016-04-04] MEDS: MUPIROCIN 2% OINT 1 APPLIC/GM SYR EACH NARE SCH ×2 (09:00→21:00)
[2016-04-04] MEDS: PANTOPRAZOLE SOD 40 MG DELAYED RELEASE TAB PO SCH ×2 (09:00→21:27)
[2016-04-04] MEDS ORDERED: MAGNESIUM OXIDE 400 MG TAB PO ONE (09:45)
[2016-04-04] MEDS ORDERED: POTASSIUM CHLORIDE 10 MEQ CONTROLLED RELEASE TAB PO ONE ×2 (09:45→15:00)
--- NOTE | 2016-04-04 11:11 | HHI.GIFU ---
Subjective Remarks Pt confused and lethargic, moans "help me" but will not say what is wrong or follow commands. Per aide, she is passing small amount of stool. No n/v. Still with abdominal tenderness on exam, although improved. Per aide, she is only eating 10% of her meals at most. Going down for KUB. (Carlee Palomo) Objective Vitals I&O Vital Signs Date Time Temp Pulse Resp B/P Pulse Ox O2 Delivery O2 Flow Rate FiO2 04/04/16 08:00 96.8 100 20 135/59 95 04/04/16 06:17 97.0 98 20 106/54 96 04/04/16 01:47 97.6 101 21 140/62 98 04/03/16 21:18 97.0 108 21 141/67 94 04/03/16 19:24 94 Room Air 04/03/16 19:00 108 04/03/16 16:00 97.2 110 20 138/81 94 04/03/16 12:00 95.7 93 20 118/56 94 I/O 04/03/16 04/03/16 04/03/16 04/04/16 04/04/16 04/04/16 07:00 15:00 23:00 07:00 15:00 23:00 Intake Total 240 ml Balance 240 ml Intake Oral 240 ml Bladder Scan Volume Amount 235 ml # Voids 2 3 1 2 1 # Bowel Movements 0 1 0 1 1 Laboratory Laboratory Tests Test 04/03/16 04/04/16 13:16 07:23 Urine Color YELLOW Urine Turbidity CLEAR Urine pH 5.0 Urine Specific [place] 1.012 Urine Protein TRACE Urine Glucose (UA) NEG Urine Ketones 10 Urine Occult Blood TRACE Urine Nitrite NEG Urine Bilirubin NEG Urine Urobilinogen LESS THAN 2.0 Urine Leukocyte Esterase NEG Urine RBC LESS THAN 1 Urine WBC 3 Urine Hyaline Casts 4 Urine Granular Casts 2 Urine Mucus FEW Microscopic Urinalysis Comment CULT NOT INDICATED White Blood Count 9.5 Red Blood Count 3.80 Hemoglobin 12.4 Hematocrit 38.8 Mean Corpuscular Volume 102.1 Mean Corpuscular Hemoglobin 32.6 Mean Corpuscular Hemoglobin 32.0 Concent Red Cell Distribution Width 19.8 Platelet Count 110 Mean Platelet Volume 8.8 Neutrophils (%) (Auto) 82.7 Lymphocytes (%) (Auto) 7.4 Monocytes (%) (Auto) 9.4 Eosinophils (%) (Auto) 0.1 Basophils (%) (Auto) 0.4 Neutrophils # (Auto) 7.9 Lymphocytes # (Auto) 0.7 Monocytes # (Auto) 0.9 Eosinophils # (Auto) 0.0 Basophils # (Auto) 0.0 CBC Comment DIFF FINAL Differential Comment Sodium Level 141 Potassium Level 3.4 Chloride Level 100 Carbon Dioxide Level 27.2 Anion Gap 14 Blood Urea Nitrogen 43 Creatinine 1.77 Estimat Glomerular Filtration 28 Rate Random Glucose 200 Calcium Level 7.7 Magnesium Level 1.1 Imaging Last Impressions Renal Ultrasound 03/29/16 0000 Signed Impressions: Service Date/Time: Tuesday, March 29, 2016 12:11 - CONCLUSION: 1. Right renal cyst. 2. Bladder not visualized. José Miguel Louis MD Lower Extremity Ultrasound 03/29/16 0000 Signed Impressions: Service Date/Time: Tuesday, March 29, 2016 11:52 - CONCLUSION: Normal examination. José Miguel Louis MD Lung Scan- Nuclear Medicine 03/28/162023 Signed Impressions: Service Date/Time: Monday, March 28, 2016 21:31 - CONCLUSION: Low probability for pulmonary embolism. Vipin Magdaleno MD Abdomen/Pelvis CT 03/28/16 1841 Signed Impressions: Service Date/Time: Monday, March 28, 2016 18:52 - CONCLUSION: 1. Diverticulosis of the sigmoid colon, cannot exclude diverticulitis. 2. Small amount of abdominal ascites. 3. Small left pleural effusion. 4. Ventral wall hernia containing fat along the left abdominal wall. 5. Cholecystectomy. 6. Anasarca. 7. LAP band procedure. Vipin Magdaleno MD Chest X-Ray 03/28/16 1333 Signed Impressions: Service Date/Time: Monday, March 28, 2016 14:49 - CONCLUSION: No acute pulmonary infiltrates. No significant change. Raul Zamora MD Physical Exam HEENT: Normocephalic; atraumatic; no jaundice. CHEST: Resp. even/unlabored, scattered rhonchi, diminished bases CARDIAC: RRR ABDOMEN: Soft, nondistended, mild lower abdominal tenderness; no hepatosplenomegaly; bowel sounds are present in all four quadrants. EXTREMITIES: No clubbing, cyanosis, generalized edema. SKIN: + ecchymotic area DOG CONTROL OFFICER: No focal deficits; lethargic oriented. (Carlee Palomo) Assessment and Plan Plan ASSESSMEENT: - GIB, Small amount hematochezia in ER. Pt is being treated for acute diverticulitis. She has not had any further GI bleeding. H/H remains stable 12.1/37.2. She denies ever having a colonoscopy. Will schedule for colonoscopy in 4-6 weeks. - Acute diverticulitis. Denies ever having diverticulitis in the past. Abdomen /Pelvis CT (03/28/16)----> 1. Diverticulosis of the sigmoid colon, cannot exclude diverticulitis. 2. Small amount of abdominal ascites. 3. Small left pleural effusion. 4. Ventral wall hernia containing fat along the left abdominal wall. 5. Cholecystectomy. 6. Anasarca. 7. LAP band procedure. Allergy to Levaquin. Flagyl, Cefepime. Will need colonoscopy in 4-6 weeks. - Constipation. No BM x 5 days. More tender on exam. Miralax 17gram po daily - Sepsis. Flagyl, Cefepime. WBC improving. - Chronic anticoagulation. On plavix. - SAM, multiple electrolyte abnormalities. Per primary - DM, HTN, CHF. Per primary Plan - Low residue diet - Await KUB - If KUB okay, consider placing NGT for TF - Cloth Mender evaluation - Cont. Miralax - Cont. PPI - Cont. Flagyl, Cefpime - Monitor H/H - Transfuse as necessary - Notify GI of active bleeding - Will need colonoscopy in 4-6 weeks, sooner if further bleeding - Supportive care - Further recommendations to follow based on results of above - Pt seen and examined by Dr. Ansari and myself and this note is written on his behalf (Carlee Palomo) Physician Comments Patient was seen and examined, agree with above note and plan (Alirio Ansari MD ) Carlee Palomo Apr 04, 2016 11:10 Alirio Ansari MD Apr 05, 2016 07:30 Qualified Code: K57.32 - Diverticulitis of large intestine without perforation or abscess without bleeding Carlee Palomo Apr 04, 2016 11:10
[2016-04-04] MEDS ORDERED: MAGNESIUM SULFATE 1 GM PREMIX 100 ML IV ONE (11:15)
[2016-04-04] MEDS: BUMETANIDE 1 MG TAB PO SCH (12:50)
[2016-04-04] MEDS: guaiFENesin E.R. 600 MG TAB PO SCH ×2 (12:50→21:27)
[2016-04-04] MEDS: GABAPENTIN 100 MG CAP PO SCH ×2 (12:50→21:27)
[2016-04-04] MEDS: DOCUSATE SODIUM 50 MG/SENNA 8.6 MG TAB PO SCH ×2 (12:50→21:27)
[2016-04-04] MEDS: amLODIPine BESYLATE 5 MG TAB PO SCH ×2 (12:50→13:05)
[2016-04-04] MEDS: ASPIRIN EC 81 MG TABEC PO SCH (12:51)
[2016-04-04] MEDS: CLOPIDOGREL 75 MG TAB PO SCH ×3 (12:51→12:53)
[2016-04-04] MEDS: CALCITRIOL 0.25 MCG CAP PO SCH (12:51)
[2016-04-04] MEDS: CEFEPIME INJ 1,000 MG in SODIUM CHLORIDE 0.9% INJ 100 ML IV SCH (12:52)
--- NOTE | 2016-04-04 13:03 | HHI.NPPN ---
Subjective General Problems: Edema Renal Failure: Chronic, Acute Interval History Still agitated today. Ordered KUB to rule out ileus, the patient refused the test. Renal function is better. (Marisa Machado) Review of Systems General Constitutional: Fatigue General Remarks difficult to obtain due to mental status (Marisa Machado) Objective Data Data 04/03/16 04/04/16 19:00 07:00 Intake Total 240 ml Balance 240 ml Intake Oral 240 ml Bladder Scan Volume Amount 235 ml # Voids 3 3 # Bowel Movements 1 1 Vital Signs Date Time Temp Pulse Resp B/P Pulse Ox O2 Delivery O2 Flow Rate FiO2 04/04/16 08:00 96.8 100 20 135/59 95 04/04/16 06:17 97.0 98 20 106/54 96 04/04/16 01:47 97.6 101 21 140/62 98 04/03/16 21:18 97.0 108 21 141/67 94 04/03/16 19:24 94 Room Air 04/03/16 19:00 108 04/03/16 16:00 97.2 110 20 138/81 94 (Marisa Machado) -: 04/04/16 0723 04/04/16 0723 Physical Exam General Appearance: Well Developed, Well Nourished, Comfortable, Anxious (Marisa Machado) Eyes Eye Exam: Pupils Equal (Marsia Machado) Throat Throat Exam: Oral Mucosa [place] & Moist (Marisa Machado) Neck Neck Exam: Trachea Midline (Marisa Machado) Pulmonary Resp Exam: Clear Bilaterally, Breath Sounds Equal, No Distress (Marisa Machado) Cardiology CV Exam: Regular, Normal Sinus Rhythm (Marisa Machado) Gastrointestinal/Abdomen GI Exam: Soft, Non-Tender, Bowel Sounds Present (Marisa Machado) Musculoskeletal MS Exam: Joints Intact, Good Strength (Marisa Machado) Integumentary Skin Exam: Clear, Warm, Dry, Normal Turgor (Marisa Machado) Extremeties Extremities Exam: Pedal Pulses Palpable, Moderate Edema (below the knees, 2+.) (Marisa Machado) Neurologic Neuro Exam: Awake, Oriented, Speech Clear, Moving All Extremities (Marisa Machado) Psychiatric Psych Exam: Appropriate Responses (Marisa Machado) VTE Prophylaxis Device: SCDs (Marisa Machado) Assessment/Plan Discussed Condition With: Patient Assessment Summary: SAM/Acute Renal Failure Electrolyte Assessment: Hypocalcemia Problem List: (1) Acute kidney insufficiency Plan: SAM most likely due to sepsis, decreased renal perfusion renal function improving daily excellent urine output, she is incontinent continue Bumex orally once daily, monitor fluid volume status, noted EF 25% Avoid IVF, oral intake encouraged on electrolyte replacement protocol Avoid nephrotoxins, adjust medications for the patient's estimated GFR. Gadolinium is contraindicated if the GFR is below 30. labs in am (2) CKD (chronic kidney disease) stage 3, GFR 30-59 ml/min Plan: Most likely secondary to nephrosclerosis , possible cardiorenal with low EF baseline creatinine 1.25 from Apr 2015 renal function may have worsened since then (3) Hypocalcemia Plan: low Vit D, elevated PTH calcium improving continue calcitriol (4) CHF (congestive heart failure) Plan: also has A fib, Aortic stenosis cardiology has followed, will see PRN during until discharge, will follow up outpatient (5) Hypokalemia Plan: replace as needed previously hyperkalemic (6) Metabolic acidosis Plan: corrected (Marisa Machado) Plan patient was seen and examined. Renal function is improving. Replace potassium. (Sharad Bey MD) Marisa Machado Apr 04, 2016 13:03 Sharad Bey MD Apr 04, 2016 14:48
--- NOTE | 2016-04-04 13:47 | HHI.PR ---
Subjective Remarks F/u nausea. Extreme nausea with decreased PO. Denies abd pain. Does not answer if she had BM and gas. Per RN small BM Objective Vitals Vital Signs Date Time Temp Pulse Resp B/P Pulse Ox O2 Delivery O2 Flow Rate FiO2 04/04/16 08:00 96.8 100 20 135/59 95 04/04/16 06:17 97.0 98 20 106/54 96 04/04/16 01:47 97.6 101 21 140/62 98 04/03/16 21:18 97.0 108 21 141/67 94 04/03/16 19:24 94 Room Air 04/03/16 19:00 108 04/03/16 16:00 97.2 110 20 138/81 94 I/O 04/03/16 04/03/16 04/03/16 04/04/16 04/04/16 04/04/16 07:00 15:00 23:00 07:00 15:00 23:00 Intake Total 240 ml Balance 240 ml Intake Oral 240 ml Bladder Scan Volume Amount 235 ml # Voids 2 3 1 2 1 # Bowel Movements 0 1 0 1 1 Result Diagram: 04/04/16 0723 04/04/16 0723 Imaging Last Impressions Renal Ultrasound 03/29/16 0000 Signed Impressions: Service Date/Time: Tuesday, March 29, 2016 12:11 - CONCLUSION: 1. Right renal cyst. 2. Bladder not visualized. José Miguel Louis MD Lower Extremity Ultrasound 03/29/16 0000 Signed Impressions: Service Date/Time: Tuesday, March 29, 2016 11:52 - CONCLUSION: Normal examination. José Miguel Louis MD Lung Scan- Nuclear Medicine 03/28/162023 Signed Impressions: Service Date/Time: Monday, March 28, 2016 21:31 - CONCLUSION: Low probability for pulmonary embolism. Vipin Magdaleno MD Abdomen/Pelvis CT 03/28/16 1841 Signed Impressions: Service Date/Time: Monday, March 28, 2016 18:52 - CONCLUSION: 1. Diverticulosis of the sigmoid colon, cannot exclude diverticulitis. 2. Small amount of abdominal ascites. 3. Small left pleural effusion. 4. Ventral wall hernia containing fat along the left abdominal wall. 5. Cholecystectomy. 6. Anasarca. 7. LAP band procedure. Vipin Magdaleno MD Chest X-Ray 03/28/16 1331 Signed Impressions: Service Date/Time: Monday, March 28, 2016 14:49 - CONCLUSION: No acute pulmonary infiltrates. No significant change. Raul Zamora MD Objective Remarks GENERAL: Elderly female in distress due to nausea HEENT: PERRLA, EOMI. No scleral icterus or conjunctival pallor. No lid lag or facial droop. CARDIOVASCULAR: Regular rate and rhythm. Systolic murmur noted RESPIRATORY: Decreased breath sounds GASTROINTESTINAL: Abdomen soft, non tender, nondistended. BS normal. MUSCULOSKELETAL: Extremities without clubbing, cyanosis but with bilateral leg edema. No obvious deformities. NEUROLOGICAL: Awake, alert. No focal neurologic deficits. Moving both upper and lower extremities spontaneously. A/P Problem List: (1) Sepsis ICD Code: A41.9 Status: Acute (2) DM (diabetes mellitus) ICD Code: E11.9 Status: Acute (3) HTN (hypertension) ICD Code: I10 Status: Acute (4) CHF (congestive heart failure) ICD Code: I50.9 Status: Acute Assessment and Plan Septic shock. Source-suspected intra-abdominal source. Continue w/ cefepime and Flagyl. CXR negative, images reviewed. CT Abd/Pelvis w/ possible diverticulitis, images reviewed. Complaining of severe nausea. No BM for days until yesterday. Repeat urinalysis unremarkable. No leukocytosis. F/U AXR. Trial reglan. If no improvement of nausea will check HCT Encephalopathy/ICU delirium. . Patient with visual hallucinations on/ off. Diverticulitis. Rectal bleeding (per patient): Continue PPI no further bleeding. Monitor H/H. Consult GI specialist who cleared patient for Coumadin history of A. fib. We'll clarify with family why patient not on Coumadin when she got admitted patient only on aspirin and Plavix. Systolic CHF: Acute on Chronic. EF 30-40% per records from 09/2015. Improving on Bumex and Coreg. MAKENNA inhibitor on hold secondary to acute kidney injury Consulted Dr Lazo SAM with low UOP. Nephrosclerosis. Kidney function improving. UA neg, renal US reviewed. Consult nephrology, appreciate recommendations. Monitor kidney function and UOP. F/u labs improving Hyperkalemia: Monitor. Hypocalcemia: Replaced with Ca gluconate IV. With low Vit D and elevated PTH ct calcitriol. Hypomagnesemia. Monitor and replace. DM2: Sliding scale w/ Accu-Cheks. Resume home Lantus once taking adequate PO. HTN: Controlled. Hold antihypertensives in light of sepsis, monitor BP. Thrombocytopenia likely secondary to sepsis. Will monitor. DVT Prophylaxis: SCD/Teds. Discharge Planning Not stable for discharge. Left message with daughter Problem Qualifiers (1) Sepsis: Qualified Code: A41.9 - Sepsis, due to unspecified organism (2) DM (diabetes mellitus): Qualified Code: E08.22 - Diabetes mellitus due to underlying condition with stage 5 chronic kidney disease not on chronic dialysis, with long-term current use of insulin Shant Rios MD Apr 04, 2016 13:47
[2016-04-04] MEDS ORDERED: SODIUM CHLOR 0.9% 1000 ML INJ 1,000 ML IV PRN (14:00)
[2016-04-04] MEDS: METOCLOPRAMIDE HCL 10 MG/2 ML VIAL IV PUSH SCH ×2 (14:34→21:28)
--- NOTE | 2016-04-04 14:44 | RADRPT ---
EXAM DATE/TIME: 04/04/2016 14:06 [facility] COMPARISON: No previous studies available for comparison. INDICATIONS : Evaluate for ileus. MEDICAL HISTORY : Diabetes mellitus type II. Hypertension. Cardiovascular disease Chronic obstructive pulmonary d isease.Hiatal hernia; SURGICAL HISTORY : Mastectomy, bilateral. Hysterectomy.Colon resection.Left hip replacement;Gastric ENCOUNTER: Initial ACUITY: 4 - 6 days PAIN SCORE: 8/10 LOCATION: Abdomen. FINDINGS: Supine view of the abdomen was performed. The abdominal bowel gas pattern is normal. No abnormal ma sses, calcifications, or organomegaly is seen. There is left total hip replacement. There is a lap ba nd present. CONCLUSION: 1. No acute findings. Nonspecific bowel gas pattern. Maximino Lin MD on April 04, 2016 at 14:40 Board Certified Radiologist. This report was verified electronically.
--- NOTE | 2016-04-04 21:19 | HHI.IDPN ---
Subjective Subjective Remarks Pt is transferred to floor she is afebrile co "pain all over" BC negative - final UOP, creatinine - improved Antibiotics cefepime, flagyl Allergies: Coded Allergies: Benadryl (Verified Allergy, Severe, 05/17/15) anaphylactic Lasix (Verified Allergy, Severe, 05/17/15) causes throat to swell Norpramin (Verified Allergy, Severe, 05/17/15) causes severe anger Percocet (Verified Allergy, Severe, 05/17/15) causes skin irritation Pineapple (Verified Allergy, Severe, 05/17/15) anaphylactic Latex (Unverified Allergy, Intermediate, Rash, 05/17/15) *MDRO Multi-Drug Resistant Organism (Verified Adverse Reaction, Unknown, MRSA, 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 Vital Signs Date Time Temp Pulse Resp B/P Pulse Ox O2 Delivery O2 Flow Rate FiO2 04/04/16 16:00 98.0 97 20 128/60 98 04/04/16 12:00 95.6 89 20 127/96 94 04/04/16 08:00 96.8 100 20 135/59 95 04/04/16 06:17 97.0 98 20 106/54 96 04/04/16 01:47 97.6 101 21 140/62 98 04/03/16 21:18 97.0 108 21 141/67 94 04/03/16 04/03/16 04/04/16 15:00 23:00 07:00 Intake Total 240 ml Balance 240 ml Intake Oral 240 ml Bladder Scan Volume Amount 235 ml # Voids 3 1 2 # Bowel Movements 1 0 1 . Laboratory Tests Test 04/04/16 07:23 White Blood Count 9.5 TH/MM3 Red Blood Count 3.80 MIL/MM3 Hemoglobin 12.4 GM/DL Hematocrit 38.8 % Mean Corpuscular Volume 102.1 FL Mean Corpuscular Hemoglobin 32.6 PG Mean Corpuscular Hemoglobin 32.0 % Concent Red Cell Distribution Width 19.8 % Platelet Count 110 TH/MM3 Mean Platelet Volume 8.8 FL Neutrophils (%) (Auto) 82.7 % Lymphocytes (%) (Auto) 7.4 % Monocytes (%) (Auto) 9.4 % Eosinophils (%) (Auto) 0.1 % Basophils (%) (Auto) 0.4 % Neutrophils # (Auto) 7.9 TH/MM3 Lymphocytes # (Auto) 0.7 TH/MM3 Monocytes # (Auto) 0.9 TH/MM3 Eosinophils # (Auto) 0.0 TH/MM3 Basophils # (Auto) 0.0 TH/MM3 CBC Comment DIFF FINAL Differential Comment Laboratory Tests Test 04/04/16 07:23 Sodium Level 141 MEQ/L Potassium Level 3.4 MEQ/L Chloride Level 100 MEQ/L Carbon Dioxide Level 27.2 MEQ/L Anion Gap 14 MEQ/L Blood Urea Nitrogen 43 MG/DL Creatinine 1.77 MG/DL Estimat Glomerular Filtration 28 ML/MIN Rate Random Glucose 200 MG/DL Calcium Level 7.7 MG/DL Magnesium Level 1.1 MG/DL Imaging Last Impressions Abdomen X-Ray 04/04/16 1331 Signed Impressions: Service Date/Time: Monday, April 04, 2016 14:06 - CONCLUSION: 1. No acute findings. Nonspecific bowel gas pattern. Maximino Lin MD Renal Ultrasound 03/29/16 0000 Signed Impressions: Service Date/Time: Tuesday, March 29, 2016 12:11 - CONCLUSION: 1. Right renal cyst. 2. Bladder not visualized. José Miguel Louis MD Lower Extremity Ultrasound 03/29/16 0000 Signed Impressions: Service Date/Time: Tuesday, March 29, 2016 11:52 - CONCLUSION: Normal examination. José Miguel Loius MD Lung Scan-V Nuclear Medicine 03/28/162023 Signed Impressions: Service Date/Time: Monday, March 28, 2016 21:31 - CONCLUSION: Low probability for pulmonary embolism. Vipin Magdaleno MD Abdomen/Pelvis CT 03/28/16 1841 Signed Impressions: Service Date/Time: Monday, March 28, 2016 18:52 - CONCLUSION: 1. Diverticulosis of the sigmoid colon, cannot exclude diverticulitis. 2. Small amount of abdominal ascites. 3. Small left pleural effusion. 4. Ventral wall hernia containing fat along the left abdominal wall. 5. Cholecystectomy. 6. Anasarca. 7. LAP band procedure. Vipin Magdaleno MD Chest X-Ray 03/28/16 1333 Signed Impressions: Service Date/Time: Monday, March 28, 2016 14:49 - CONCLUSION: No acute pulmonary infiltrates. No significant change. Raul Zamora MD Physical Exam CONSTITUTIONAL/GENERAL: This is an adequately nourished patient, in no apparent distress. SKIN: No jaundice, rashes, or lesions. Skin temperature appropriate. Not diaphoretic. Well healedb/l mastectomy scars HEAD: Atraumatic. Normocephalic. EYES: Pupils equal and round and reactive. Extraocular motions intact. No scleral icterus. No injection or drainage. Fundi not examined. ENT: Hearing grossly normal. Dry oral mucosae without visible erythema, exudates , masses, or lesions. CARDIOVASCULAR: Regular rate and rhythm without murmurs, gallops, or rubs. No JVD. Peripheral pulses symmetric. RESPIRATORY/CHEST: Symmetric, unlabored respirations. Clear to auscultation. Breath sounds equal bilaterally. No wheezes, rales, or rhonchi. GASTROINTESTINAL: Abdomen soft, mildly tender,milfdly distended. No hepato- splenomegaly, or palpable masses. No guarding. Bowel sounds present. GENITOURINARY: Without palpable bladder distension. MUSCULOSKELETAL: Extremities without clubbing, cyanosis, No edema NEUROLOGICAL: awake alert. Moves all 4 extremieties, follows commands PSYCHIATRIC: tearful Assessment & Plan Remarks Sepsis - likely of GI origin (diverticulitis) Diverituclosis ? diverticulitis -clinically no e/o divericulitis ARF: improving No e/o UTi - change cefepime to CFTX - cont flagyl IV - monnitor clincaillJayda Young MD Apr 04, 2016 21:19
[2016-04-04] MEDS: traZODone HCL 100 MG TAB PO SCH (21:26)
[2016-04-04] MEDS: ATORVASTATIN 40 MG TAB PO SCH (21:26)
[2016-04-04] MEDS: MAGNESIUM OXIDE 400 MG TAB PO SCH (21:27)
[2016-04-04] MEDS: cefTRIAXone INJ 2,000 MG in SODIUM CHLORIDE 0.9% INJ 100 ML IV SCH (23:35)
[2016-04-05] VITALS (8 sets, daily range): BP systolic 113–125; BP diastolic 46–68; PULSE 86–103; RESP 18–20; TEMP 96.2–98.1; O2SAT 92–97
[2016-04-05] MEDS: CHLORHEXIDINE GLUCONATE 2 % 1 PACK (2 CLOTHS) TOP SCH (04:00)
[2016-04-05] MEDS: metroNIDAZOLE 500 MG INJ 100 ML IV SCH ×3 (05:20→22:20)
[2016-04-05] MEDS: METOCLOPRAMIDE HCL 10 MG/2 ML VIAL IV PUSH SCH ×2 (05:20→12:25)
[2016-04-05] MEDS: INSULIN ASPART SUPPLEMENTAL SCALE SQ SCH ×4 (06:15→22:31)
[2016-04-05 08:22] LABS: BICARBONATE 24.2 MEQ/L (21.0-32.0); MAGNESIUM 1.7 MG/DL (1.5-2.5); POTASSIUM 5.4 MEQ/L (3.5-5.1)
[2016-04-05] MEDS: DOCUSATE SODIUM 50 MG/SENNA 8.6 MG TAB PO SCH ×2 (09:00→21:00)
[2016-04-05] MEDS: POLYETHYLENE GLYCOL 17 GM PKG PO SCH (09:00)
[2016-04-05] MEDS: MUPIROCIN 2% OINT 1 APPLIC/GM SYR EACH NARE SCH (09:00)
[2016-04-05] MEDS: PANTOPRAZOLE SOD 40 MG DELAYED RELEASE TAB PO SCH ×2 (09:00→22:21)
[2016-04-05] MEDS: CARVEDILOL 12.5 MG TAB PO SCH ×2 (09:00→22:20)
[2016-04-05] MEDS: CALCITRIOL 0.25 MCG CAP PO SCH (09:00)
[2016-04-05] MEDS: GABAPENTIN 100 MG CAP PO SCH ×2 (09:00→22:21)
[2016-04-05] MEDS: SODIUM CHLORIDE 0.9% FLUSH 5 ML FLUSH FLUSH SCH ×2 (09:00→21:00)
[2016-04-05] MEDS: guaiFENesin E.R. 600 MG TAB PO SCH ×2 (09:00→21:00)
[2016-04-05] MEDS: MAGNESIUM OXIDE 400 MG TAB PO SCH ×2 (09:00→22:21)
[2016-04-05] MEDS: ASPIRIN EC 81 MG TABEC PO SCH (09:00)
[2016-04-05] MEDS: BUMETANIDE 1 MG TAB PO SCH (09:00)
[2016-04-05] MEDS: SODIUM CHLOR 0.9% 1000 ML INJ 1,000 ML IV SCH (12:30)
--- NOTE | 2016-04-05 12:30 | HHI.NPPN ---
Subjective General Problems: Edema Renal Failure: Chronic, Acute Interval History confusion is noted. Had bowel movement. Appears to be non oliguric. Review of Systems General Constitutional: Fatigue General Remarks difficult to obtain due to mental status Objective Data Data 04/04/16 04/05/16 19:00 07:00 Intake Total 120 ml 600 ml Balance 120 ml 600 ml Intake Oral 120 ml 600 ml # Voids 3 4 # Bowel Movements 2 2 Vital Signs Date Time Temp Pulse Resp B/P Pulse Ox O2 Delivery O2 Flow Rate FiO2 04/05/16 09:54 94 04/05/16 08:21 96.9 89 18 114/58 93 04/05/16 05:00 98.1 86 20 120/64 94 04/05/16 00:40 97.8 89 19 125/65 94 04/04/16 21:30 98.0 94 20 130/68 96 04/04/16 19:00 89 04/04/16 16:00 98.0 97 20 128/60 98 -: 04/04/16 0723 04/05/16 0619 Physical Exam General Appearance: Well Developed, Well Nourished, Comfortable, Anxious Eyes Eye Exam: Pupils Equal Throat Throat Exam: Oral Mucosa [place] & Moist Neck Neck Exam: Trachea Midline Pulmonary Resp Exam: Clear Bilaterally, Breath Sounds Equal, No Distress Cardiology CV Exam: Regular, Normal Sinus Rhythm Gastrointestinal/Abdomen GI Exam: Soft, Non-Tender, Bowel Sounds Present Musculoskeletal MS Exam: Joints Intact, Good Strength Integumentary Skin Exam: Clear, Warm, Dry, Normal Turgor Extremeties Extremities Exam: Pedal Pulses Palpable, Moderate Edema (below the knees, 2+.) Neurologic Neuro Exam: Awake, Oriented, Speech Clear, Moving All Extremities Psychiatric Psych Exam: Appropriate Responses VTE Prophylaxis Device: SCDs Assessment/Plan Discussed Condition With: Patient Assessment Summary: SAM/Acute Renal Failure Electrolyte Assessment: Hypocalcemia Problem List: (1) Acute kidney insufficiency Plan: SAM most likely due to sepsis, decreased renal perfusion Renal function has worsened after initially improving. exact urine output is not known, she is incontinent. Will temporarily hold Bumex, increase IVF for about 12-24 hours. Monitor renal function. Rule out obstruction. Obtain bladder scan. (2) CKD (chronic kidney disease) stage 3, GFR 30-59 ml/min Plan: Most likely secondary to nephrosclerosis , possible cardiorenal with low EF baseline creatinine 1.25 from Apr 2015 renal function may have worsened since then (3) Hypocalcemia Plan: low Vit D, elevated PTH calcium improving continue calcitriol (4) CHF (congestive heart failure) Plan: also has A fib, Aortic stenosis cardiology has followed, will see PRN during until discharge, will follow up outpatient (5) Hypokalemia Plan: replace as needed previously hyperkalemic (6) Metabolic acidosis Plan: corrected Plan . Sharad Bey MD Apr 05, 2016 12:30
[2016-04-05] MEDS ORDERED: SODIUM POLYSTYRENE SULFONATE SUSP 15 GM/60 ML CUP PO ONE (13:00)
--- NOTE | 2016-04-05 13:10 | HHI.PR ---
Subjective Remarks Follow-up nausea. Resolved nausea. Still not eating because she was to be up when she does. Denies abdominal pain. Complains of productive cough with green phlegm but no shortness of breath. Discussed with RN Objective Vitals Vital Signs Date Time Temp Pulse Resp B/P Pulse Ox O2 Delivery O2 Flow Rate FiO2 04/05/16 12:46 96.2 103 18 118/66 93 04/05/16 09:54 94 04/05/16 08:21 96.9 89 18 114/58 93 04/05/16 05:00 98.1 86 20 120/64 94 04/05/16 00:40 97.8 89 19 125/65 94 04/04/16 21:30 98.0 94 20 130/68 96 04/04/16 19:00 89 04/04/16 16:00 98.0 97 20 128/60 98 I/O 04/04/16 04/04/16 04/04/16 04/05/16 04/05/16 04/05/16 07:00 15:00 23:00 07:00 15:00 23:00 Intake Total 120 ml 400 ml 200 ml Balance 120 ml 400 ml 200 ml Intake Oral 120 ml 400 ml 200 ml # Voids 2 3 1 3 # Bowel Movements 1 2 0 2 Result Diagram: 04/04/16 0723 04/05/16 0619 Imaging Last 24 hours Impressions Abdomen X-Ray 04/04/16 1331 Signed Impressions: Service Date/Time: Monday, April 04, 2016 14:06 - CONCLUSION: 1. No acute findings. Nonspecific bowel gas pattern. Maximino Lin MD Objective Remarks GENERAL: Elderly female in no distress HEENT: PERRLA, EOMI. No scleral icterus or conjunctival pallor. No lid lag or facial droop. CARDIOVASCULAR: Regular rate and rhythm. Systolic murmur noted RESPIRATORY: Decreased breath sounds with rhonchi GASTROINTESTINAL: Abdomen soft, non tender, nondistended. BS normal. MUSCULOSKELETAL: Extremities without clubbing, cyanosis but with bilateral leg edema. No obvious deformities. NEUROLOGICAL: Awake, alert. No focal neurologic deficits. Moving both upper and lower extremities spontaneously. Procedures None A/P Problem List: (1) Sepsis ICD Code: A41.9 Status: Acute (2) DM (diabetes mellitus) ICD Code: E11.9 Status: Acute (3) HTN (hypertension) ICD Code: I10 Status: Acute (4) CHF (congestive heart failure) ICD Code: I50.9 Status: Acute Assessment and Plan Septic shock. Source-suspected intra-abdominal source. CT Abd/Pelvis w/ possible diverticulitis, images reviewed. Complaining of severe nausea improved on Reglan. ID switched cefepime(started 03/29) to Rocephin April 04. Continue Flagyl since March 30 . Patient coughing with green phlegm. Repeat chest x-ray and obtain sputum culture Encephalopathy/ICU delirium. . Patient with visual hallucinations on/ off. Improved oriented to person and place Diverticulitis. Rectal bleeding (per patient): Continue PPI no further bleeding. Monitor H/H. Consult GI specialist who cleared patient for Coumadin history of A. fib. We'll clarify with family why patient not on Coumadin when she got admitted patient only on aspirin and Plavix. Systolic CHF: Acute on Chronic. EF 30-40% per records from 09/2015. Improving on Bumex and Coreg. MAKENNA inhibitor on hold secondary to acute kidney injury Consulted Dr Lazo SAM with low UOP. Nephrosclerosis. Kidney function improving. UA neg, renal US reviewed. Consult nephrology, appreciate recommendations. Monitor kidney function and UOP. 04/05/16-worsening kidney function likely secondary to dehydration from decreased oral intake from nausea. She also has hyperkalemia after receiving potassium supplementation yesterday. Gentle IV hydration for 1 L and Kayexalate 1. Hyperkalemia: As above. Repeat BMP magnesium in the morning Hypocalcemia: Replaced with Ca gluconate IV. With low Vit D and elevated PTH ct calcitriol. Hypomagnesemia. Monitor and replace. DM2: Sliding scale w/ Accu-Cheks. Resume home Lantus once taking adequate PO. HTN: Controlled. Hold antihypertensives in light of sepsis, monitor BP. Thrombocytopenia likely secondary to sepsis. Will monitor. DVT Prophylaxis: SCD/Teds. Discharge Planning Not stable for discharge. Discussed with daughter Problem Qualifiers (1) Sepsis: Qualified Code: A41.9 - Sepsis, due to unspecified organism (2) DM (diabetes mellitus): Qualified Code: E08.22 - Diabetes mellitus due to underlying condition with stage 5 chronic kidney disease not on chronic dialysis, with long-term current use of insulin Shant Rios MD Apr 05, 2016 13:10
--- NOTE | 2016-04-05 13:50 | HHI.GIFU ---
Subjective Remarks Pt more alert today than she has been. States she is not eating because she cannot eat in bed and would like to get up in the chair to eat lunch. Abdominal pain has improved. (Carlee Palomo) Objective Vitals I&O Vital Signs Date Time Temp Pulse Resp B/P Pulse Ox O2 Delivery O2 Flow Rate FiO2 04/05/16 12:46 96.2 103 18 118/66 93 04/05/16 09:54 94 04/05/16 08:21 96.9 89 18 114/58 93 04/05/16 05:00 98.1 86 20 120/64 94 04/05/16 00:40 97.8 89 19 125/65 94 04/04/16 21:30 98.0 94 20 130/68 96 04/04/16 19:00 89 04/04/16 16:00 98.0 97 20 128/60 98 I/O 04/04/16 04/04/16 04/04/16 04/05/16 04/05/16 04/05/16 07:00 15:00 23:00 07:00 15:00 23:00 Intake Total 120 ml 400 ml 200 ml Balance 120 ml 400 ml 200 ml Intake Oral 120 ml 400 ml 200 ml # Voids 2 3 1 3 # Bowel Movements 1 2 0 2 Laboratory Laboratory Tests Test 04/05/16 06:19 Sodium Level 141 Potassium Level 5.4 Chloride Level 101 Carbon Dioxide Level 24.2 Anion Gap 16 Blood Urea Nitrogen 49 Creatinine 2.16 Estimat Glomerular Filtration 22 Rate Random Glucose 190 Calcium Level 7.7 Magnesium Level 1.7 Imaging Last Impressions Abdomen X-Ray 04/04/16 1331 Signed Impressions: Service Date/Time: Monday, April 04, 2016 14:06 - CONCLUSION: 1. No acute findings. Nonspecific bowel gas pattern. Maximino Lin MD Renal Ultrasound 03/29/16 0000 Signed Impressions: Service Date/Time: Tuesday, March 29, 2016 12:11 - CONCLUSION: 1. Right renal cyst. 2. Bladder not visualized. José Miguel Louis MD Lower Extremity Ultrasound 03/29/16 0000 Signed Impressions: Service Date/Time: Tuesday, March 29, 2016 11:52 - CONCLUSION: Normal examination. José Miguel Louis MD Lung Scan- Nuclear Medicine 03/28/162023 Signed Impressions: Service Date/Time: Monday, March 28, 2016 21:31 - CONCLUSION: Low probability for pulmonary embolism. Vipin Magdaleno MD Abdomen/Pelvis CT 03/28/16 1841 Signed Impressions: Service Date/Time: Monday, March 28, 2016 18:52 - CONCLUSION: 1. Diverticulosis of the sigmoid colon, cannot exclude diverticulitis. 2. Small amount of abdominal ascites. 3. Small left pleural effusion. 4. Ventral wall hernia containing fat along the left abdominal wall. 5. Cholecystectomy. 6. Anasarca. 7. LAP band procedure. Vipin Magdaleno MD Chest X-Ray 03/28/16 1333 Signed Impressions: Service Date/Time: Monday, March 28, 2016 14:49 - CONCLUSION: No acute pulmonary infiltrates. No significant change. Raul Zamora MD Physical Exam HEENT: Normocephalic; atraumatic; no jaundice. CHEST: Resp. even/unlabored, scattered rhonchi, diminished bases CARDIAC: RRR ABDOMEN: Soft, nondistended, mild lower abdominal tenderness; no hepatosplenomegaly; bowel sounds are present in all four quadrants. EXTREMITIES: No clubbing, cyanosis, generalized edema. SKIN: + ecchymotic area [employer] ANIMAL CARETAKER: No focal deficits; lethargic oriented. (Carlee Palomo) Assessment and Plan Plan ASSESSMEENT: - GIB, Small amount hematochezia in ER. Pt is being treated for acute diverticulitis. She has not had any further GI bleeding. H/H remains stable 12.4/38.8. She denies ever having a colonoscopy. Will schedule for colonoscopy in 4-6 weeks. - Acute diverticulitis. Denies ever having diverticulitis in the past. Abdomen /Pelvis CT (03/28/16)----> 1. Diverticulosis of the sigmoid colon, cannot exclude diverticulitis. 2. Small amount of abdominal ascites. 3. Small left pleural effusion. 4. Ventral wall hernia containing fat along the left abdominal wall. 5. Cholecystectomy. 6. Anasarca. 7. LAP band procedure. Allergy to Levaquin. Abx. Will need colonoscopy in 4-6 weeks. Pain improved. - Poor appetite. Pt has not been eating much. States she will eat better if she could get up in the chair. Will add glucerna - Constipation. Miralax 17gram po daily. +BM - Sepsis. WBC improving. Abx. - Chronic anticoagulation. On plavix. - SAM, multiple electrolyte abnormalities. Per primary - DM, HTN, CHF. Per primary Plan - Low residue diet - Add Glucerna - Ergonomics Technician evaluation - OOB to chair for meals - Cont. Miralax - Cont. PPI - Cont. Flagyl - Monitor H/H - Transfuse as necessary - Notify GI of active bleeding - Will need colonoscopy in 4-6 weeks, sooner if further bleeding - Supportive care - Further recommendations to follow based on results of above - Pt seen and examined by Dr. Ansari and myself and this note is written on his behalf (Carlee Palomo) Physician Comments patient was seen and examined, agree with above note and plan, we will do colonoscopy as outpatient in few wks, we will sign off now. (Alirio Ansari MD) Carlee Palomo Apr 05, 2016 13:50 Alirio Ansari MD Apr 05, 2016 14:17
--- NOTE | 2016-04-05 13:53 | RADRPT ---
EXAM DATE/TIME: 04/05/2016 13:24 [facility] COMPARISON: CHEST SINGLE AP, May 17, 2015, 12:58. INDICATIONS : Shortness of breath. MEDICAL HISTORY : Myocardial infarction. Congestive heart failure. Chronic obstructive SURGICAL HISTORY : Mastectomy, bilateral. ENCOUNTER: Initial ACUITY: 1 day PAIN SCORE: 0/10 LOCATION: Bilateral chest FINDINGS: The heart is enlarged. There is increasing interstitial edema and consolidative changes in the left base. There is no pleural effusion. CONCLUSION: 1. Increasing consolidative changes left base. 2. Increasing interstitial edema. Jd Massey MD FACR on April 05, 2016 at 13:50 Board Certified Radiologist. This report was verified electronically.
[2016-04-05] MEDS: ONDANSETRON HCL 4 MG/2 ML VIAL IVP PRN (17:35)
[2016-04-05] MEDS: traZODone HCL 100 MG TAB PO SCH (21:00)
[2016-04-05] MEDS: cefTRIAXone INJ 2,000 MG in SODIUM CHLORIDE 0.9% INJ 100 ML IV SCH (22:21)
[2016-04-05] MEDS: ATORVASTATIN 40 MG TAB PO SCH (22:21)
[2016-04-06] VITALS (8 sets, daily range): BP systolic 93–133; BP diastolic 53–84; PULSE 84–111; RESP 17–20; TEMP 95.6–97.4; O2SAT 92–98
[2016-04-06] MEDS: CHLORHEXIDINE GLUCONATE 2 % 1 PACK (2 CLOTHS) TOP SCH (00:10)
[2016-04-06] MEDS: metroNIDAZOLE 500 MG INJ 100 ML IV SCH ×3 (04:00→21:05)
[2016-04-06] MEDS: SODIUM CHLOR 0.9% 1000 ML INJ 1,000 ML IV SCH (04:08)
[2016-04-06] MEDS: INSULIN ASPART SUPPLEMENTAL SCALE SQ SCH ×4 (06:41→21:06)
[2016-04-06 07:09] LABS: BICARBONATE 26.7 MEQ/L (21.0-32.0); MAGNESIUM 1.7 MG/DL (1.5-2.5)
[2016-04-06] MEDS: DOCUSATE SODIUM 50 MG/SENNA 8.6 MG TAB PO SCH ×2 (07:59→21:06)
[2016-04-06] MEDS: POLYETHYLENE GLYCOL 17 GM PKG PO SCH (07:59)
[2016-04-06] MEDS: guaiFENesin E.R. 600 MG TAB PO SCH ×2 (08:02→21:06)
[2016-04-06] MEDS: CALCITRIOL 0.25 MCG CAP PO SCH (08:02)
[2016-04-06] MEDS: MAGNESIUM OXIDE 400 MG TAB PO SCH ×2 (08:02→21:06)
[2016-04-06] MEDS: CLOPIDOGREL 75 MG TAB PO SCH (08:02)
[2016-04-06] MEDS: PANTOPRAZOLE SOD 40 MG DELAYED RELEASE TAB PO SCH ×2 (08:02→21:05)
[2016-04-06] MEDS: ASPIRIN EC 81 MG TABEC PO SCH (08:02)
[2016-04-06] MEDS: amLODIPine BESYLATE 5 MG TAB PO SCH (08:02)
[2016-04-06] MEDS: CARVEDILOL 12.5 MG TAB PO SCH ×2 (08:03→21:06)
[2016-04-06] MEDS: GABAPENTIN 100 MG CAP PO SCH ×2 (08:03→21:06)
[2016-04-06] MEDS: SODIUM CHLORIDE 0.9% FLUSH 5 ML FLUSH FLUSH SCH ×2 (08:39→21:05)
--- NOTE | 2016-04-06 11:39 | HHI.NPPN ---
Subjective General Problems: Edema Renal Failure: Chronic, Acute Interval History patient is somewhat confused. Renal function is worse again. Review of Systems General Constitutional: Fatigue General Remarks difficult to obtain due to mental status Objective Data Data 04/05/16 04/06/16 19:00 07:00 Intake Total 700 ml 120 ml Balance 700 ml 120 ml Intake Oral 700 ml 120 ml # Voids 2 3 # Bowel Movements 1 3 Vital Signs Date Time Temp Pulse Resp B/P Pulse Ox O2 Delivery O2 Flow Rate FiO2 04/06/16 08:30 95.6 89 20 133/66 96 04/06/16 04:13 96.7 104 20 122/70 97 04/06/16 00:10 96.4 111 20 131/67 93 04/05/16 20:58 96.4 94 20 115/46 97 04/05/16 19:15 94 04/05/16 17:21 96.8 102 18 113/68 92 04/05/16 12:46 96.2 103 18 118/66 93 -: 04/04/16 0723 04/06/16 0620 Physical Exam General Appearance: Well Developed, Well Nourished, Comfortable, Anxious Eyes Eye Exam: Pupils Equal Throat Throat Exam: Oral Mucosa [place] & Moist Neck Neck Exam: Trachea Midline Pulmonary Resp Exam: Clear Bilaterally, Breath Sounds Equal, No Distress Cardiology CV Exam: Regular, Normal Sinus Rhythm Gastrointestinal/Abdomen GI Exam: Soft, Non-Tender, Bowel Sounds Present Musculoskeletal MS Exam: Joints Intact, Good Strength Integumentary Skin Exam: Clear, Warm, Dry, Normal Turgor Extremeties Extremities Exam: Pedal Pulses Palpable, Moderate Edema (below the knees, 2+.) Neurologic Neuro Exam: Awake, Oriented, Speech Clear, Moving All Extremities Psychiatric Psych Exam: Appropriate Responses VTE Prophylaxis Device: SCDs Assessment/Plan Discussed Condition With: Patient Assessment Summary: SAM/Acute Renal Failure Electrolyte Assessment: Hypocalcemia Problem List: (1) Acute kidney insufficiency Plan: SAM most likely due to sepsis, decreased renal perfusion Renal function has worsened after initially improving. exact urine output is not known, she is incontinent. Bumex held, cautious hydration. Allergic interstitial nephritis is a possibility as well. Monitor renal function. Bladder scan ordered, Salazar if obstruction is found. (2) CKD (chronic kidney disease) stage 3, GFR 30-59 ml/min Plan: Most likely secondary to nephrosclerosis , possible cardiorenal with low EF baseline creatinine 1.25 from Apr 2015 renal function may have worsened since then (3) Hypocalcemia Plan: low Vit D, elevated PTH calcium improving continue calcitriol (4) CHF (congestive heart failure) Plan: also has A fib, Aortic stenosis cardiology has followed, will see PRN during until discharge, will follow up outpatient (5) Hypokalemia Plan: replace as needed previously hyperkalemic (6) Metabolic acidosis Plan: corrected Plan . Sharad Bey MD Apr 06, 2016 11:39
[2016-04-06 12:47] LABS: HEMOGLOBIN A1a 1.3 %; HEMOGLOBIN A1b 1.3 %; HEMOGLOBIN Ao 77.9 %; HEMOGLOBIN F 1.5 %; HEMOGLOBIN LA1C 3.3 %; HEMOGLOBIN P3 7.6 %
--- NOTE | 2016-04-06 13:21 | HHI.PR ---
Subjective Remarks Follow-up acute kidney injury. Patient denies voiding issues. No cough and shortness of breath. Somewhat confused today. Discussed with RN Objective Vitals Vital Signs Date Time Temp Pulse Resp B/P Pulse Ox O2 Delivery O2 Flow Rate FiO2 04/06/16 12:24 96.6 86 20 115/84 97 04/06/16 08:30 95.6 89 20 133/66 96 04/06/16 04:13 96.7 104 20 122/70 97 04/06/16 00:10 96.4 111 20 131/67 93 04/05/16 20:58 96.4 94 20 115/46 97 04/05/16 19:15 94 04/05/16 17:21 96.8 102 18 113/68 92 I/O 04/05/16 04/05/16 04/05/16 04/06/16 04/06/16 04/06/16 07:00 15:00 23:00 07:00 15:00 23:00 Intake Total 200 ml 700 ml 120 ml Balance 200 ml 700 ml 120 ml Intake Oral 200 ml 700 ml 120 ml # Voids 3 2 1 2 # Bowel Movements 2 1 1 2 Result Diagram: 04/04/16 0723 04/06/16 0620 Objective Remarks GENERAL: Elderly female in no distress HEENT: PERRLA, EOMI. No scleral icterus or conjunctival pallor. No lid lag or facial droop. CARDIOVASCULAR: Regular rate and rhythm. Systolic murmur noted RESPIRATORY: Decreased breath sounds without rhonchi or crackles GASTROINTESTINAL: Abdomen soft, non tender, nondistended. BS normal. MUSCULOSKELETAL: Extremities without clubbing, cyanosis but with bilateral leg edema. No obvious deformities. NEUROLOGICAL: Awake, alert. No focal neurologic deficits. Moving both upper and lower extremities spontaneously. Procedures None A/P Problem List: (1) Sepsis ICD Code: A41.9 Status: Acute (2) DM (diabetes mellitus) ICD Code: E11.9 Status: Acute (3) HTN (hypertension) ICD Code: I10 Status: Acute (4) CHF (congestive heart failure) ICD Code: I50.9 Status: Acute Assessment and Plan Septic shock. Source-suspected intra-abdominal source. CT Abd/Pelvis w/ possible diverticulitis, images reviewed. Complaining of severe nausea improved on Reglan. ID switched cefepime(started 03/29) to Rocephin April 04. Continue Flagyl since March 30 . Patient coughing with green phlegm. Repeat chest x-ray with increased consolidation and edema. Obtain Sputum culture. Today patient denies cough and shortness of breath Encephalopathy/ICU delirium. Sundowning. Patient with visual hallucinations on/ off. Slightly more confused today likely secondary to worsening renal function Diverticulitis. Rectal bleeding (per patient): Continue PPI no further bleeding. Monitor H/H. Consult GI specialist who cleared patient for Coumadin history of A. fib. We'll clarify with family why patient not on Coumadin when she got admitted patient only on aspirin and Plavix. Systolic CHF: Acute on Chronic. EF 30-40% per records from 09/2015. Clinically stable on Coreg. MAKENNA inhibitor on hold secondary to acute kidney injury Consulted Dr Lazo . Bumex currently on hold secondary to worsening renal function SAM with low UOP. Nephrosclerosis. Worsening renal function Bumex has been discontinued, could also be related to interstitial nephritis currently receiving antimicrobials. Continue gentle IV hydration and monitor for fluid overload. Check for urinary retention Hyperkalemia: As above. Improved Hypocalcemia: Replaced with Ca gluconate IV. With low Vit D and elevated PTH ct calcitriol. Hypomagnesemia. Monitor and replace. DM2: Sliding scale w/ Accu-Cheks. Resume home Lantus once taking adequate PO. HTN: Controlled. Hold antihypertensives in light of sepsis, monitor BP. Thrombocytopenia likely secondary to sepsis. Will monitor. Diabetes mellitus. Uncontrolled. Monitor fingerstick with sliding scale coverage. Obtain A1c DVT Prophylaxis: SCD/Teds. Discharge Planning Not stable for discharge, home health care versus rehabilitation. Discussed with daughter Problem Qualifiers (1) Sepsis: Qualified Code: A41.9 - Sepsis, due to unspecified organism (2) DM (diabetes mellitus): Qualified Code: E08.22 - Diabetes mellitus due to underlying condition with stage 5 chronic kidney disease not on chronic dialysis, with long-term current use of insulin Shant Rios MD Apr 06, 2016 13:20
[2016-04-06] MEDS: ATORVASTATIN 40 MG TAB PO SCH (21:06)
[2016-04-06] MEDS: traZODone HCL 100 MG TAB PO SCH (21:45)
[2016-04-06] MEDS: cefTRIAXone INJ 2,000 MG in SODIUM CHLORIDE 0.9% INJ 100 ML IV SCH (21:46)
[2016-04-07] VITALS (8 sets, daily range): BP systolic 97–122; BP diastolic 55–62; PULSE 64–126; RESP 18–24; TEMP 95.5–96.6; O2SAT 92–95
[2016-04-07] MEDS: SODIUM CHLOR 0.9% 1000 ML INJ 1,000 ML IV SCH (02:56)
[2016-04-07] MEDS: CHLORHEXIDINE GLUCONATE 2 % 1 PACK (2 CLOTHS) TOP SCH (04:00)
[2016-04-07] MEDS: metroNIDAZOLE 500 MG INJ 100 ML IV SCH ×3 (04:51→21:18)
[2016-04-07] MEDS: INSULIN ASPART SUPPLEMENTAL SCALE SQ SCH ×4 (07:03→21:22)
[2016-04-07] MEDS: LEVOTHYROXINE SODIUM 112 MCG TAB PO SCH (07:12)
[2016-04-07 07:58] LABS: BICARBONATE 24.1 MEQ/L (21.0-32.0); POTASSIUM 4.4 MEQ/L (3.5-5.1)
[2016-04-07] MEDS: CARVEDILOL 12.5 MG TAB PO SCH ×2 (10:12→21:19)
[2016-04-07] MEDS: SODIUM CHLORIDE 0.9% FLUSH 5 ML FLUSH FLUSH SCH ×2 (10:12→21:19)
[2016-04-07] MEDS: guaiFENesin E.R. 600 MG TAB PO SCH ×3 (10:12→21:20)
[2016-04-07] MEDS: CALCITRIOL 0.25 MCG CAP PO SCH ×2 (10:13→10:15)
[2016-04-07] MEDS: PANTOPRAZOLE SOD 40 MG DELAYED RELEASE TAB PO SCH ×3 (10:13→21:21)
[2016-04-07] MEDS: amLODIPine BESYLATE 5 MG TAB PO SCH (10:13)
[2016-04-07] MEDS: DOCUSATE SODIUM 50 MG/SENNA 8.6 MG TAB PO SCH ×3 (10:13→21:21)
[2016-04-07] MEDS: ASPIRIN EC 81 MG TABEC PO SCH ×2 (10:13→10:15)
[2016-04-07] MEDS: CLOPIDOGREL 75 MG TAB PO SCH ×2 (10:13→10:15)
[2016-04-07] MEDS: GABAPENTIN 100 MG CAP PO SCH ×3 (10:13→21:20)
[2016-04-07] MEDS: MAGNESIUM OXIDE 400 MG TAB PO SCH ×3 (10:13→21:20)
[2016-04-07] MEDS: POLYETHYLENE GLYCOL 17 GM PKG PO SCH (10:14)
[2016-04-07] MEDS: INSULIN DETEMIR 100 UNITS/ML VIAL SQ SCH ×2 (10:14→21:21)
--- NOTE | 2016-04-07 10:18 | HHI.NPPN ---
Subjective General Problems: Edema Renal Failure: Chronic, Acute Interval History patient may have dementia, not a good historian. She is comfortable. Wants to get out of the bed. Renal function is worse. Review of Systems General Constitutional: Fatigue General Remarks difficult to obtain due to mental status Objective Data Data 04/06/16 04/07/16 19:00 07:00 Intake Total 720 ml 120 ml Balance 720 ml 120 ml Intake Oral 720 ml 120 ml # Voids 2 3 # Bowel Movements 1 Vital Signs Date Time Temp Pulse Resp B/P Pulse Ox O2 Delivery O2 Flow Rate FiO2 04/07/16 08:00 96.1 110 18 122/60 92 04/07/16 04:00 96.6 82 20 108/62 95 04/07/16 03:19 95 04/06/16 23:49 84 18 99/58 98 04/06/16 23:42 96.6 101 17 93/54 95 04/06/16 20:28 96.3 96 18 124/58 94 04/06/16 16:09 97.4 104 20 107/53 92 04/06/16 12:24 96.6 86 20 115/84 97 -: 04/04/16 0723 04/07/16 0635 Physical Exam General Appearance: Well Developed, Well Nourished, Comfortable, Anxious Eyes Eye Exam: Pupils Equal Throat Throat Exam: Oral Mucosa [place] & Moist Neck Neck Exam: Trachea Midline Pulmonary Resp Exam: Clear Bilaterally, Breath Sounds Equal, No Distress Cardiology CV Exam: Regular, Normal Sinus Rhythm Gastrointestinal/Abdomen GI Exam: Soft, Non-Tender, Bowel Sounds Present Musculoskeletal MS Exam: Joints Intact, Good Strength Integumentary Skin Exam: Clear, Warm, Dry, Normal Turgor Extremeties Extremities Exam: Pedal Pulses Palpable, Trace Edema, Dependent Edema Neurologic Neuro Exam: Awake, Oriented, Speech Clear, Moving All Extremities Psychiatric Psych Exam: Appropriate Responses VTE Prophylaxis Device: SCDs Assessment/Plan Discussed Condition With: Patient Assessment Summary: SAM/Acute Renal Failure Electrolyte Assessment: Hypocalcemia Problem List: (1) Acute kidney insufficiency Plan: SAM most likely due to sepsis, decreased renal perfusion Renal function has worsened after initially improving. exact urine output is not known, she is incontinent. Discussed with RN to obtain bladder scan. I have ordered serological workup. Bumex held, has low EF, I will stop IVF. Allergic interstitial nephritis is a possibility as well. Cardiorenal syndrome is a possibility as well. Monitor renal function. Bladder scan ordered, Salazar if obstruction is found. (2) CKD (chronic kidney disease) stage 3, GFR 30-59 ml/min Plan: Most likely secondary to nephrosclerosis , possible cardiorenal with low EF baseline creatinine 1.25 from Apr 2015 renal function may have worsened since then (3) Hypocalcemia Plan: low Vit D, elevated PTH calcium improving continue calcitriol (4) CHF (congestive heart failure) Plan: also has A fib, Aortic stenosis cardiology has followed, will see PRN during until discharge, will follow up outpatient (5) Hypokalemia Plan: replace as needed previously hyperkalemic (6) Metabolic acidosis Plan: corrected Plan . Sharad Bey MD Apr 07, 2016 10:18
[2016-04-07] MEDS: MAGNESIUM SULFATE 1 GM PREMIX 100 ML IV SCH ×2 (11:32→13:00)
[2016-04-07 11:57] LABS: BACTERIA, URINE MOD /hpf; BLOOD, URINE MOD (NEG); GLUCOSE,URINE NEG (NEG); HYALINE CAST, URINE 28 /lpf (RARE); KETONE, URINE TRACE mg/dL (NEG); MUCUS URINE FEW /lpf (OCC); NITRITE,URINE NEG (NEG); PH, URINE 5.5 (5.0-8.5); SQUAMOUS EPITHELIAL CELL URINE 1 /hpf (0-5)
[2016-04-07 11:59] LABS: COMMENT (UR) CATH-CULTURE IND; CULTURE IF INDICATED CATH CULTURE IND; URINE COLOR AMBER (YELLW/STRAW)
--- NOTE | 2016-04-07 13:03 | HHI.PR ---
Subjective Remarks Follow-up acute kidney injury. She is alert and oriented 3. No confusion. Denies chest pain and shortness of breath. Seen with and daughter-in- law she wants to be a full code. Patient updated with current condition and worsening renal function. If she continues to get worse she might need hemodialysis. Seen with RN. Discussed with nephrology Objective Vitals Vital Signs Date Time Temp Pulse Resp B/P Pulse Ox O2 Delivery O2 Flow Rate FiO2 04/07/16 08:00 96.1 110 18 122/60 92 04/07/16 04:00 96.6 82 20 108/62 95 04/07/16 03:19 95 04/06/16 23:49 84 18 99/58 98 04/06/16 23:42 96.6 101 17 93/54 95 04/06/16 20:28 96.3 96 18 124/58 94 04/06/16 16:09 97.4 104 20 107/53 92 I/O 04/06/16 04/06/16 04/06/16 04/07/16 04/07/16 04/07/16 07:00 15:00 23:00 07:00 15:00 23:00 Intake Total 720 ml 120 ml Balance 720 ml 120 ml Intake Oral 720 ml 120 ml # Voids 2 2 1 2 # Bowel Movements 2 1 0 Result Diagram: 04/04/16 0723 04/07/16 0635 Objective Remarks GENERAL: Elderly female in no distress HEENT: PERRLA, EOMI. No scleral icterus or conjunctival pallor. No lid lag or facial droop. CARDIOVASCULAR: Regular rate and rhythm. Systolic murmur noted RESPIRATORY: Decreased breath sounds without rhonchi. Left base crackles GASTROINTESTINAL: Abdomen soft, non tender, nondistended. BS normal. MUSCULOSKELETAL: Extremities without clubbing, cyanosis but with bilateral leg edema. No obvious deformities. NEUROLOGICAL: Awake, alert. No focal neurologic deficits. Moving both upper and lower extremities spontaneously. Procedures None A/P Problem List: (1) Sepsis ICD Code: A41.9 Status: Acute (2) DM (diabetes mellitus) ICD Code: E11.9 Status: Acute (3) HTN (hypertension) ICD Code: I10 Status: Acute (4) CHF (congestive heart failure) ICD Code: I50.9 Status: Acute Assessment and Plan Septic shock. Source-suspected intra-abdominal source. CT Abd/Pelvis w/ possible diverticulitis, images reviewed. Complaining of severe nausea improved on Reglan. ID switched cefepime(started 03/29) to Rocephin April 04. Continue Flagyl since March 30 . Patient coughing with green phlegm. Repeat chest x-ray with increased consolidation and edema. Obtain Sputum culture. Today patient denies cough and shortness of breath Encephalopathy/ICU delirium. Sundowning. Patient with visual hallucinations on/ off. No confusion today Diverticulitis. Rectal bleeding (per patient): Continue PPI no further bleeding. Monitor H/H. Consult GI specialist who cleared patient for Coumadin history of A. fib. We'll clarify with family why patient not on Coumadin when she got admitted patient only on aspirin and Plavix. Systolic CHF: Acute on Chronic. EF 30-40% per records from 09/2015. MAKENNA inhibitor on hold secondary to acute kidney injury Consulted Dr Lazo . Bumex currently on hold secondary to worsening renal function. Patient has crackles on the left base but denies shortness of breath. Diuretics on hold secondary to worsening acute kidney injury. We'll discontinue IV fluids SAM with low UOP. Nephrosclerosis. Worsening renal function Bumex has been discontinued, could also be related to interstitial nephritis currently receiving antimicrobials. IV hydration discontinued secondary to left base crackles history of heart failure. Patient not retaining urine continue bladder scan. Repeat BMP in a.m. additional morning. Avoid nephrotoxins. Hyperkalemia: As above. Improved Hypocalcemia: Replaced with Ca gluconate IV. With low Vit D and elevated PTH ct calcitriol. Hypomagnesemia. Monitor and replace. DM2: Sliding scale w/ Accu-Cheks. Resume home Lantus of the lower dose of 5 units twice a day secondary to hyperglycemia A1c 8.2 HTN: Continue Norvasc and Coreg with hold parameters Thrombocytopenia likely secondary to sepsis. Will monitor. DVT Prophylaxis: SCD/Teds. Discharge Planning Not stable for discharge, home health care versus rehabilitation. Discussed with family Problem Qualifiers (1) Sepsis: Qualified Code: A41.9 - Sepsis, due to unspecified organism (2) DM (diabetes mellitus): Qualified Code: E08.22 - Diabetes mellitus due to underlying condition with stage 5 chronic kidney disease not on chronic dialysis, with long-term current use of insulin Shant Rios MD Apr 07, 2016 13:03
[2016-04-07 13:27] LABS: HEPATITIS B SURFACE ANTIBODY 0.1 mIU/mL
[2016-04-07 17:25] LABS: URINE TOTAL PROTEIN TIMED 172.1 MG/DL
[2016-04-07] MEDS: NYSTATIN 100,000 U/GM PWD 15 GM BTL TOPICAL SCH (17:39)
[2016-04-07] MEDS: ACETAMINOPHEN 325 MG TAB PO PRN (17:39)
[2016-04-07] MEDS: traZODone HCL 100 MG TAB PO SCH (21:19)
[2016-04-07] MEDS: ATORVASTATIN 40 MG TAB PO SCH (21:20)
[2016-04-07] MEDS: cefTRIAXone INJ 2,000 MG in SODIUM CHLORIDE 0.9% INJ 100 ML IV SCH (21:22)
[2016-04-08] VITALS (8 sets, daily range): BP systolic 86–118; BP diastolic 52–65; PULSE 76–89; RESP 16–20; TEMP 95.2–97.3; O2SAT 95–99
[2016-04-08] MEDS: CHLORHEXIDINE GLUCONATE 2 % 1 PACK (2 CLOTHS) TOP SCH (04:00)
[2016-04-08] MEDS: metroNIDAZOLE 500 MG INJ 100 ML IV SCH ×3 (04:41→20:00)
[2016-04-08] MEDS: INSULIN ASPART SUPPLEMENTAL SCALE SQ SCH ×4 (06:39→21:00)
[2016-04-08] MEDS: LEVOTHYROXINE SODIUM 112 MCG TAB PO SCH (06:39)
[2016-04-08 09:28] LABS: TOTAL PROTEIN SPE 6.7 GM/DL (6.0-7.6)
[2016-04-08 10:03] LABS: ALBUMIN SPE 2.86 GM/DL (3.50-5.00); ALPHA 1 GLOBULIN 0.27 GM/DL (0.11-0.29); ALPHA 2 GLOBULIN 0.62 GM/DL (0.22-1.00); BETA GLOBULINS (SPE) 0.62 GM/DL (0.53-1.03)
[2016-04-08 10:18] LABS: BICARBONATE 28.9 MEQ/L (21.0-32.0); MAGNESIUM 2.2 MG/DL (1.5-2.5); POTASSIUM 3.3 MEQ/L (3.5-5.1)
[2016-04-08] MEDS: INSULIN DETEMIR 100 UNITS/ML VIAL SQ SCH (10:23)
[2016-04-08] MEDS: SODIUM CHLORIDE 0.9% FLUSH 5 ML FLUSH FLUSH SCH ×2 (10:24→21:00)
[2016-04-08] MEDS: CALCITRIOL 0.25 MCG CAP PO SCH (10:25)
[2016-04-08] MEDS: guaiFENesin E.R. 600 MG TAB PO SCH ×2 (10:25→22:22)
[2016-04-08] MEDS: PANTOPRAZOLE SOD 40 MG DELAYED RELEASE TAB PO SCH ×2 (10:25→22:22)
[2016-04-08] MEDS: MAGNESIUM OXIDE 400 MG TAB PO SCH ×2 (10:25→22:21)
[2016-04-08] MEDS: CLOPIDOGREL 75 MG TAB PO SCH (10:25)
[2016-04-08] MEDS: ASPIRIN EC 81 MG TABEC PO SCH (10:25)
[2016-04-08] MEDS: CARVEDILOL 12.5 MG TAB PO SCH ×2 (10:25→22:23)
[2016-04-08] MEDS: GABAPENTIN 100 MG CAP PO SCH ×2 (10:25→22:23)
[2016-04-08] MEDS: amLODIPine BESYLATE 5 MG TAB PO SCH (10:26)
[2016-04-08] MEDS: POLYETHYLENE GLYCOL 17 GM PKG PO SCH (10:26)
[2016-04-08] MEDS: DOCUSATE SODIUM 50 MG/SENNA 8.6 MG TAB PO SCH ×2 (10:26→22:21)
[2016-04-08] MEDS: NYSTATIN 100,000 U/GM PWD 15 GM BTL TOPICAL SCH ×3 (10:27→18:02)
[2016-04-08] MEDS ORDERED: POTASSIUM CHLORIDE 10 MEQ CONTROLLED RELEASE TAB PO ONE (11:30)
--- NOTE | 2016-04-08 11:33 | HHI.NPPN ---
Subjective General Problems: Edema Renal Failure: Chronic, Acute Interval History More alert today. Patient is comfortable. Daughter in law and are at the bedside. Patient answers questions appropriately today. Review of Systems General Constitutional: Fatigue General Remarks difficult to obtain due to mental status Objective Data Data 04/07/16 04/08/16 19:00 07:00 Intake Total 1359 ml 120 ml Output Total 350 ml 50 ml Balance 1009 ml 70 ml Intake Oral 240 ml 120 ml IV Total 1119 ml Output Urine Total 350 ml 50 ml Bladder Scan Volume Amount 240 ml # Bowel Movements 1 1 Vital Signs Date Time Temp Pulse Resp B/P Pulse Ox O2 Delivery O2 Flow Rate FiO2 04/08/16 08:00 95.2 85 20 117/62 97 04/08/16 07:45 81 04/08/16 04:00 96.9 78 16 96/54 96 04/08/16 01:12 77 20 91/54 96 04/08/16 00:00 95.5 76 18 86/54 98 04/07/16 23:23 82 04/07/16 20:00 96.6 87 24 111/61 95 04/07/16 19:44 95 04/07/16 18:30 18 04/07/16 16:00 95.5 76 18 113/55 92 04/07/16 12:00 96.5 126 18 97/56 92 -: 04/04/16 0723 04/08/16 0825 Physical Exam General Appearance: Well Developed, Well Nourished, Comfortable, Anxious Eyes Eye Exam: Pupils Equal Throat Throat Exam: Oral Mucosa [place] & Moist Neck Neck Exam: Trachea Midline Pulmonary Resp Exam: Clear Bilaterally, Breath Sounds Equal, No Distress Cardiology CV Exam: Regular, Normal Sinus Rhythm Gastrointestinal/Abdomen GI Exam: Soft, Non-Tender, Bowel Sounds Present Musculoskeletal MS Exam: Joints Intact, Good Strength Integumentary Skin Exam: Clear, Warm, Dry, Normal Turgor Extremeties Extremities Exam: Pedal Pulses Palpable, Trace Edema, Dependent Edema Neurologic Neuro Exam: Awake, Oriented, Speech Clear, Moving All Extremities Psychiatric Psych Exam: Appropriate Responses VTE Prophylaxis Device: SCDs Assessment/Plan Discussed Condition With: Patient Assessment Summary: SAM/Acute Renal Failure Electrolyte Assessment: Hypocalcemia Problem List: (1) Acute kidney insufficiency Plan: SAM most likely due to sepsis, decreased renal perfusion, cardiorenal syndrome also could be contributing. GFR better today. No need for dialysis. Discussed with daughter in law, who understands poor quality of life with dialysis. Replace potassium. Continue supportive care. Avoid nephrotoxic agents. (2) CKD (chronic kidney disease) stage 3, GFR 30-59 ml/min Plan: Most likely secondary to nephrosclerosis , possible cardiorenal with low EF baseline creatinine 1.25 from Apr 2015 renal function may have worsened since then (3) Hypocalcemia Plan: low Vit D, elevated PTH calcium improving continue calcitriol (4) CHF (congestive heart failure) Plan: also has A fib, Aortic stenosis cardiology has followed, will see PRN during until discharge, will follow up outpatient May need to restart diuretic. (5) Hypokalemia Plan: replace as needed previously hyperkalemic (6) Metabolic acidosis Plan: corrected Plan . Sharad Bey MD Apr 08, 2016 11:33
--- NOTE | 2016-04-08 12:41 | HHI.PR ---
Subjective Remarks Follow-up acute kidney injury. No new complaints slightly confused today. Discussed with RN and nephrology Objective Vitals Vital Signs Date Time Temp Pulse Resp B/P Pulse Ox O2 Delivery O2 Flow Rate FiO2 04/08/16 08:00 95.2 85 20 117/62 97 04/08/16 07:45 81 04/08/16 04:00 96.9 78 16 96/54 96 04/08/16 01:12 77 20 91/54 96 04/08/16 00:00 95.5 76 18 86/54 98 04/07/16 23:23 82 04/07/16 20:00 96.6 87 24 111/61 95 04/07/16 19:44 95 04/07/16 18:30 18 04/07/16 16:00 95.5 76 18 113/55 92 I/O 04/07/16 04/07/16 04/07/16 04/08/16 04/08/16 04/08/16 07:00 15:00 23:00 07:00 15:00 23:00 Intake Total 120 ml 240 ml 1239 ml Output Total 350 ml 50 ml 50 ml Balance 120 ml -110 ml 1189 ml -50 ml Intake Oral 120 ml 240 ml 120 ml IV Total 1119 ml Output Urine Total 350 ml 50 ml 50 ml Bladder Scan Volume Amount 240 ml # Voids 2 # Bowel Movements 0 1 1 1 Result Diagram: 04/04/16 0723 04/08/16 0825 Objective Remarks GENERAL: Elderly female in no distress HEENT: PERRLA, EOMI. No scleral icterus or conjunctival pallor. No lid lag or facial droop. CARDIOVASCULAR: Regular rate and rhythm. Systolic murmur noted RESPIRATORY: Decreased breath sounds without rhonchi. GASTROINTESTINAL: Abdomen soft, non tender, nondistended. BS normal. MUSCULOSKELETAL: Extremities without clubbing, cyanosis but with bilateral leg edema. No obvious deformities. NEUROLOGICAL: Awake, alert. No focal neurologic deficits. Moving both upper and lower extremities spontaneously. Procedures None A/P Problem List: (1) Sepsis ICD Code: A41.9 Status: Acute (2) DM (diabetes mellitus) ICD Code: E11.9 Status: Acute (3) HTN (hypertension) ICD Code: I10 Status: Acute (4) CHF (congestive heart failure) ICD Code: I50.9 Status: Acute Assessment and Plan Septic shock. Source-suspected intra-abdominal source. CT Abd/Pelvis w/ possible diverticulitis, images reviewed. Complaining of severe nausea improved on Reglan. ID switched cefepime(started 03/29) to Rocephin April 04. Continue Flagyl since March 30 . Patient coughing with green phlegm. Repeat chest x-ray with increased consolidation and edema. Obtain Sputum culture. Negative urinary legionella and streptococcal antigen. Today patient denies cough and shortness of breath Encephalopathy/ICU delirium. Sundowning. Patient with visual hallucinations on/ off. Slightly confused today. Discussed with caregiver, patient with history of intermittent confusion and memory loss likely has dementia. Obtain TSH, B-12 , RPR and head CT Diverticulitis. Rectal bleeding (per patient): Continue PPI no further bleeding. Monitor H/H. Consult GI specialist who cleared patient for Coumadin history of A. fib. We'll clarify with family why patient not on Coumadin when she got admitted patient only on aspirin and Plavix. Systolic CHF: Acute on Chronic. EF 30-40% per records from 09/2015. MAKENNA inhibitor on hold secondary to acute kidney injury Consulted Dr Lazo . Bumex currently on hold secondary to worsening renal function. We'll discontinue IV fluids SAM with low UOP. Nephrosclerosis. Worsening renal function Bumex has been discontinued, could also be related to interstitial nephritis currently receiving antimicrobials. IV hydration discontinued secondary to left base crackles history of heart failure. Patient not retaining urine continue bladder scan. Creatinine slightly improved today. Avoid nephrotoxins. Discussed with nephrology restart Bumex if renal function continues to improve Hyperkalemia: As above. Improved Hypocalcemia: Replaced with Ca gluconate IV. With low Vit D and elevated PTH ct calcitriol. Hypomagnesemia. Monitor and replace. DM2: Sliding scale w/ Accu-Cheks. Resume home Lantus A1c 8.2 HTN: Continue Norvasc and Coreg with hold parameters Thrombocytopenia likely secondary to sepsis. Will monitor. DVT Prophylaxis: SCD/Teds. Discharge Planning Not stable for discharge, home health care versus rehabilitation. Discussed with family Problem Qualifiers (1) Sepsis: Qualified Code: A41.9 - Sepsis, due to unspecified organism (2) DM (diabetes mellitus): Qualified Code: E08.22 - Diabetes mellitus due to underlying condition with stage 5 chronic kidney disease not on chronic dialysis, with long-term current use of insulin Shant Rios MD Apr 08, 2016 12:41
[2016-04-08] MEDS: POTASSIUM PHOSPHATE MONOBASIC 500 MG TAB PO SCH ×2 (14:00→22:23)
[2016-04-08] MEDS: ACETAMINOPHEN 325 MG TAB PO PRN (14:01)
--- NOTE | 2016-04-08 16:49 | RADRPT ---
EXAM DATE/TIME: 04/08/2016 16:30 [place] COMPARISON: No previous studies available for comparison. INDICATIONS : Altered mental status. RADIATION DOSE: 56.35 CTDIvol (mGy) MEDICAL HISTORY : Cerebrovascular disease. Hyperthyroidism. Cardiovascular diseaseBreast cancer. SURGICAL HISTORY : None. ENCOUNTER: Initial ACUITY: 1 day PAIN SCALE: 0/10 LOCATION: cranial TECHNIQUE: Multiple contiguous axial images were obtained of the head. Using automated exposure control and adj ustment of the mA and/or kV according to patient size, radiation dose was kept as low as reasonably a chievable to obtain optimal diagnostic quality images. FINDINGS: CEREBRUM: The ventricles are normal for age. No evidence of midline shift, mass lesion, hemorrhage or acute in farction. No extra-axial fluid collections are seen. POSTERIOR FOSSA: The cerebellum and brainstem are intact. The 4th ventricle is midline. The cerebellopontine angle i s unremarkable. EXTRACRANIAL: The visualized portion of the orbits is intact. SKULL: The calvaria is intact. No evidence of skull fracture. CONCLUSION: Normal examination for a patient of this age. Mary Garcia MD on April 08, 2016 at 16:47 Board Certified Radiologist. This report was verified electronically.
[2016-04-08] MEDS: traZODone HCL 100 MG TAB PO SCH (21:00)
[2016-04-08] MEDS ORDERED: INSULIN DETEMIR 100 UNITS/ML VIAL SQ SCH (21:00)
[2016-04-08] MEDS: cefTRIAXone INJ 2,000 MG in SODIUM CHLORIDE 0.9% INJ 100 ML IV SCH (22:00)
--- NOTE | 2016-04-08 22:00 | HHI.IDPN ---
Subjective Subjective Remarks Pt is sitting on the edge of her bed she is afebrile Creat slowly going down WBC are wnl Antibiotics CFTX, flagyl Allergies: Coded Allergies: Benadryl (Verified Allergy, Severe, 05/17/15) anaphylactic Lasix (Verified Allergy, Severe, 05/17/15) causes throat to swell Norpramin (Verified Allergy, Severe, 05/17/15) causes severe anger Percocet (Verified Allergy, Severe, 05/17/15) causes skin irritation Pineapple (Verified Allergy, Severe, 05/17/15) anaphylactic Latex (Unverified Allergy, Intermediate, Rash, 05/17/15) *MDRO Multi-Drug Resistant Organism (Verified Adverse Reaction, Unknown, MRSA, 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 Vital Signs Date Time Temp Pulse Resp B/P Pulse Ox O2 Delivery O2 Flow Rate FiO2 04/08/16 20:00 97.3 83 18 116/65 98 04/08/16 16:00 95.6 86 20 118/55 99 04/08/16 12:00 96.9 89 20 100/52 95 04/08/16 08:00 95.2 85 20 117/62 97 04/08/16 07:45 81 04/08/16 04:00 96.9 78 16 96/54 96 04/08/16 01:12 77 20 91/54 96 04/08/16 00:00 95.5 76 18 86/54 98 04/07/16 23:23 82 04/07/16 04/07/16 04/08/16 15:00 23:00 07:00 Intake Total 240 ml 1239 ml Output Total 350 ml 50 ml Balance -110 ml 1189 ml Intake Oral 240 ml 120 ml IV Total 1119 ml Output Urine Total 350 ml 50 ml Bladder Scan Volume Amount 240 ml # Bowel Movements 1 1 . Laboratory Tests Test 04/07/16 04/07/16 04/08/16 06:35 10:32 08:25 Sodium Level 140 MEQ/L 137 MEQ/L Potassium Level 4.4 MEQ/L 3.3 MEQ/L Chloride Level 102 MEQ/L 98 MEQ/L Carbon Dioxide Level 24.1 MEQ/L 28.9 MEQ/L Anion Gap 14 MEQ/L 10 MEQ/L Blood Urea Nitrogen 54 MG/DL 55 MG/DL Creatinine 2.96 MG/DL 2.53 MG/DL Estimat Glomerular Filtration 15 ML/MIN 18 ML/MIN Rate Random Glucose 321 MG/DL 167 MG/DL Calcium Level 7.9 MG/DL 8.1 MG/DL Magnesium Level 1.0 MG/DL 2.2 MG/DL Total Protein 6.7 GM/DL Albumin 2.86 GM/DL 2.1 GM/DL Albumin/Globulin Ratio 0.75 Hyhgu-4-Xdoehpjep 0.27 GM/DL Pndpr-3-Qtgcjcjkc 0.62 GM/DL Beta Globulins 0.62 GM/DL Gamma Globulins 2.34 GM/DL Phosphorus Level 1.6 MG/DL Vitamin B12 Level 1167 PG/ML Thyroid Stimulating Hormone 3.600 uIU/ML 3rd Gen Microbiology Date/Time Procedure Status Source Growth 04/07/16 11:15 Urine Culture - Preliminary Resulted Urine Catheterized Urine IMMATURE GROWTH - REINCUBATE Imaging Last Impressions Abdomen X-Ray 04/04/16 1331 Signed Impressions: Service Date/Time: Monday, April 04, 2016 14:06 - CONCLUSION: 1. No acute findings. Nonspecific bowel gas pattern. Maximino Lin MD Renal Ultrasound 03/29/16 0000 Signed Impressions: Service Date/Time: Tuesday, March 29, 2016 12:11 - CONCLUSION: 1. Right renal cyst. 2. Bladder not visualized. José Miguel Louis MD Lower Extremity Ultrasound 03/29/16 0000 Signed Impressions: Service Date/Time: Tuesday, March 29, 2016 11:52 - CONCLUSION: Normal examination. José Miguel Louis MD Lung Scan- Nuclear Medicine 03/28/162023 Signed Impressions: Service Date/Time: Monday, March 28, 2016 21:31 - CONCLUSION: Low probability for pulmonary embolism. Vipin Magdaleno MD Abdomen/Pelvis CT 03/28/16 1841 Signed Impressions: Service Date/Time: Monday, March 28, 2016 18:52 - CONCLUSION: 1. Diverticulosis of the sigmoid colon, cannot exclude diverticulitis. 2. Small amount of abdominal ascites. 3. Small left pleural effusion. 4. Ventral wall hernia containing fat along the left abdominal wall. 5. Cholecystectomy. 6. Anasarca. 7. LAP band procedure. Vipin Magdaleno MD Chest X-Ray 03/28/16 1333 Signed Impressions: Service Date/Time: Monday, March 28, 2016 14:49 - CONCLUSION: No acute pulmonary infiltrates. No significant change. Raul Zamora MD Physical Exam CONSTITUTIONAL/GENERAL: This is an adequately nourished patient, in no apparent distress. SKIN: No jaundice, rashes, or lesions. Skin temperature appropriate. Not diaphoretic. Well healedb/l mastectomy scars HEAD: Atraumatic. Normocephalic. EYES: Pupils equal and round and reactive. Extraocular motions intact. No scleral icterus. No injection or drainage. Fundi not examined. ENT: Hearing grossly normal. Dry oral mucosae without visible erythema, exudates , masses, or lesions. CARDIOVASCULAR: Regular rate and rhythm without murmurs, gallops, or rubs. No JVD. Peripheral pulses symmetric. RESPIRATORY/CHEST: Symmetric, unlabored respirations. Clear to auscultation. Breath sounds equal bilaterally. No wheezes, rales, or rhonchi. GASTROINTESTINAL: Abdomen soft,oese mildly tender,moderately distended. No hepato-splenomegaly, or palpable masses. No guarding. Bowel sounds present. GENITOURINARY: Without palpable bladder distension. MUSCULOSKELETAL: Extremities without clubbing, cyanosis, 1+ tight edema NEUROLOGICAL: awake alert. Moves all 4 extremieties, follows commands; normasl speech PSYCHIATRIC:calm, cooperative Assessment & Plan Remarks Sepsis - likely of GI origin (diverticulitis) Diverituclosis ? diverticulitis -clinically no e/o divericulitis ARF: improving No e/o UTi - cont CFTX - cont flagyl IV - monnitor clincailly comnplete 14 days of abx Ok to chage CFTX to oral quinolone (levaquine or cipro) Jayda Lin MD Apr 08, 2016 22:00
[2016-04-08] MEDS: ATORVASTATIN 40 MG TAB PO SCH (22:23)
[2016-04-09] VITALS: BP 97/54; PULSE 81; RESP 17; TEMP 96.9; O2SAT 98
[2016-04-09 03:50] LABS: MYELOPEROXIDASE LESS THAN 1.0 AI (<1.0); PROTEINASE-3 LESS THAN 1.0 AI (<1.0)
[2016-04-09 04:00] VITALS: BP 115/55; PULSE 84; RESP 17; TEMP 97.6; O2SAT 98
[2016-04-09] MEDS: metroNIDAZOLE 500 MG INJ 100 ML IV SCH ×2 (04:00→11:26)
[2016-04-09] MEDS: CHLORHEXIDINE GLUCONATE 2 % 1 PACK (2 CLOTHS) TOP SCH (04:00)
[2016-04-09] MEDS: LEVOTHYROXINE SODIUM 112 MCG TAB PO SCH (05:41)
[2016-04-09] MEDS: INSULIN ASPART SUPPLEMENTAL SCALE SQ SCH ×3 (05:47→16:00)
[2016-04-09 07:34] LABS: BICARBONATE 23.8 MEQ/L (21.0-32.0); MAGNESIUM 1.7 MG/DL (1.5-2.5)
[2016-04-09 07:35] LABS: POTASSIUM 3.4 MEQ/L (3.5-5.1)
[2016-04-09 08:00] VITALS: BP 108/55; PULSE 73; RESP 18; TEMP 96.8; O2SAT 97
[2016-04-09 08:02] LABS: CALCIUM-PROTEIN CORRECTED 7.5 MG/DL (8.5-10.1)
[2016-04-09] MEDS: PANTOPRAZOLE SOD 40 MG DELAYED RELEASE TAB PO SCH (08:52)
[2016-04-09] MEDS: ASPIRIN EC 81 MG TABEC PO SCH (08:52)
[2016-04-09] MEDS: CALCITRIOL 0.25 MCG CAP PO SCH (08:52)
[2016-04-09] MEDS: CARVEDILOL 12.5 MG TAB PO SCH (08:52)
[2016-04-09] MEDS: amLODIPine BESYLATE 5 MG TAB PO SCH (08:52)
[2016-04-09] MEDS: DOCUSATE SODIUM 50 MG/SENNA 8.6 MG TAB PO SCH (08:52)
[2016-04-09] MEDS: INSULIN DETEMIR 100 UNITS/ML VIAL SQ SCH (08:52)
[2016-04-09] MEDS: guaiFENesin E.R. 600 MG TAB PO SCH (08:52)
[2016-04-09] MEDS: GABAPENTIN 100 MG CAP PO SCH (08:52)
[2016-04-09] MEDS: MAGNESIUM OXIDE 400 MG TAB PO SCH (08:53)
[2016-04-09] MEDS: POLYETHYLENE GLYCOL 17 GM PKG PO SCH (08:53)
[2016-04-09] MEDS: CLOPIDOGREL 75 MG TAB PO SCH (08:53)
[2016-04-09] MEDS: SODIUM CHLORIDE 0.9% FLUSH 5 ML FLUSH FLUSH SCH (09:00)
[2016-04-09] MEDS: NYSTATIN 100,000 U/GM PWD 15 GM BTL TOPICAL SCH ×3 (09:00→17:20)
[2016-04-09] MEDS ORDERED: BUMETANIDE 1 MG TAB PO SCH (10:00)
--- NOTE | 2016-04-09 11:32 | HHI.NPPN ---
Subjective General Problems: Edema Renal Failure: Chronic, Acute Interval History She is awake, states she did not sleep well last night. Renal function is better today. (Marisa Machado) Review of Systems General Constitutional: Fatigue (Marisa Machado) Objective Data Data 04/08/16 04/09/16 19:00 07:00 Intake Total 360 ml 240 ml Output Total 150 ml 150 ml Balance 210 ml 90 ml Intake Oral 360 ml 240 ml Output Urine Total 150 ml 150 ml # Bowel Movements 2 1 Vital Signs Date Time Temp Pulse Resp B/P Pulse Ox O2 Delivery O2 Flow Rate FiO2 04/09/16 08:00 96.8 73 18 108/55 97 04/09/16 04:00 97.6 84 17 115/55 98 04/09/16 00:00 96.9 81 17 97/54 98 04/08/16 20:00 97.3 83 18 116/65 98 04/08/16 16:00 95.6 86 20 118/55 99 04/08/16 12:00 96.9 89 20 100/52 95 (Marisa Machaod) -: 04/09/16 0613 Imaging Last [address] 04/08/16 0000 Signed Impressions: Service Date/Time: Friday, April 08, 2016 16:30 - CONCLUSION: Normal examination for a patient of this age. Mary Garcia MD Tubes & Lines: [place] (Marisa Machado) Physical Exam General Appearance: Well Developed, Well Nourished, No Acute Distress, Comfortable ( Marisa Machado) Eyes Eye Exam: Pupils Equal (Marisa Machado) Throat Throat Exam: Oral Mucosa [place] & Moist (Marisa Machado) Neck Neck Exam: Trachea Midline (Marisa Machado) Pulmonary Resp Exam: Breath Sounds Equal, No Distress, Crackles (Marisa Machado) Cardiology CV Exam: Regular, Normal Sinus Rhythm (Marisa Machado) Gastrointestinal/Abdomen GI Exam: Soft, Non-Tender, Bowel Sounds Present (Marisa Machado) Musculoskeletal MS Exam: Joints Intact, Good Strength (Marisa Machado) Integumentary Skin Exam: Clear, Warm, Dry, Normal Turgor (Marisa Machado) Extremeties Extremities Exam: Pedal Pulses Palpable, Trace Edema, Dependent Edema (Marisa Machado) Neurologic Neuro Exam: Awake, Oriented, Speech Clear, Moving All Extremities (Marisa Machado) Psychiatric Psych Exam: Appropriate Responses (Marisa Machado) VTE Prophylaxis Device: SCDs (Marisa Machado) Assessment/Plan Discussed Condition With: Patient Assessment Summary: SAM/Acute Renal Failure Electrolyte Assessment: Hypocalcemia Problem List: (1) Acute kidney insufficiency Plan: SAM most likely due to sepsis, decreased renal perfusion, cardiorenal syndrome also could be contributing. renal function is better today Bumex has been held, will resume once daily dosage, 1 mg, monitor fluid volume status a [place] catheter was placed, unsure of reason, she is non oliguric and not retaining, it will be removed No need for dialysis. Continue supportive care. Replace electrolytes including phosphorus and potassium Avoid nephrotoxic agents. daily renal panel (2) CKD (chronic kidney disease) stage 3, GFR 30-59 ml/min Plan: Most likely secondary to nephrosclerosis , possible cardiorenal with low EF baseline creatinine 1.25 from Apr 2015 renal function may have worsened since then (3) Hypocalcemia Plan: low Vit D, elevated PTH calcium improving continue calcitriol (4) CHF (congestive heart failure) Plan: also has A fib, Aortic stenosis cardiology has followed, will see PRN during until discharge, will follow up outpatient May need to restart diuretic. (5) Hypokalemia Plan: replace as needed previously hyperkalemic (6) Metabolic acidosis Plan: corrected Plan . (Marisa Machado) Plan patient was seen and examined. Renal function has improved. Replace potassium. Can be discharged from renal standpoint. (Sharad Bey MD) Marisa Machado Apr 09, 2016 11:31 Sharad Bey MD Apr 10, 2016 08:18
[2016-04-09 12:00] VITALS: BP 121/61; PULSE 86; RESP 16; TEMP 96.7; O2SAT 96
[2016-04-09] MEDS ORDERED: LEVOFLOXACIN 500 MG TAB PO ONE (12:00)
[2016-04-09] MEDS ORDERED: CALC.25 PO (12:02)
[2016-04-09] MEDS ORDERED: NYST10007 TOPICAL (12:02)
[2016-04-09] MEDS ORDERED: MAGN400T3 PO (12:02)
[2016-04-09] MEDS ORDERED: CARV12.5 PO (12:02)
[2016-04-09] MEDS ORDERED: LEVA250T PO (12:02)
[2016-04-09] MEDS ORDERED: LEVEMIR SQ ×2 (12:02)
[2016-04-09] MEDS ORDERED: AMLO5 PO (12:02)
[2016-04-09] MEDS ORDERED: METR-1 PO (12:02)
[2016-04-09] MEDS ORDERED: SENN1TAB PO (12:03)
[2016-04-09] MEDS ORDERED: K-PHTAB PO (12:03)
--- NOTE | 2016-04-09 12:03 | HHI.DCPOC ---
Discharge Care Plan Diagnosis: (1) Diverticulitis Your Health Problems Are: Difficulty with ADL Exercise Tolerance Goals to Promote Your Health * To prevent worsening of your condition and complications * To maintain your health at the optimal level Directions to Meet Your Goals Take your medications as prescribed Follow your dietary instruction Follow activity as directed Keep your appointments as scheduled Take your immunizations and boosters as scheduled If your symptoms worsen call your PCP, if no PCP go to Urgent Care Center or Emergency Room Smoking is Dangerous to Your Health. Avoid second hand smoke Call the 24-hour hour crisis hotline for domestic abuse at Shant Rios MD Apr 09, 2016 12:03
--- NOTE | 2016-04-09 12:10 | HHI.PR ---
Subjective Remarks Follow-up acute kidney injury. Patient has no complaints. She is awake and oriented 3. Discussed with nephrology yesterday okay for discharge if renal function improving. Discussed with RN and case management. Objective Vitals Vital Signs Date Time Temp Pulse Resp B/P Pulse Ox O2 Delivery O2 Flow Rate FiO2 04/09/16 08:00 96.8 73 18 108/55 97 04/09/16 04:00 97.6 84 17 115/55 98 04/09/16 00:00 96.9 81 17 97/54 98 04/08/16 20:00 97.3 83 18 116/65 98 04/08/16 16:00 95.6 86 20 118/55 99 I/O 04/08/16 04/08/16 04/08/16 04/09/16 04/09/16 04/09/16 07:00 15:00 23:00 07:00 15:00 23:00 Intake Total 360 ml 120 ml 120 ml Output Total 150 ml 50 ml 100 ml Balance 210 ml 70 ml 20 ml Intake Oral 360 ml 120 ml 120 ml Output Urine Total 150 ml 50 ml 100 ml # Bowel Movements 2 0 1 Result Diagram: 04/09/16 0613 Imaging Last Impressions Head CT 04/08/16 0000 Signed Impressions: Service Date/Time: Friday, April 08, 2016 16:30 - CONCLUSION: Normal examination for a patient of this age. Mary Garcia MD Chest X-Ray 04/05/16 0000 Signed Impressions: Service Date/Time: Tuesday, April 05, 2016 13:24 - CONCLUSION: 1. Increasing consolidative changes left base. 2. Increasing interstitial edema. Jd Massey MD FACR Abdomen X-Ray 04/04/16 1331 Signed Impressions: Service Date/Time: Monday, April 04, 2016 14:06 - CONCLUSION: 1. No acute findings. Nonspecific bowel gas pattern. Maximino Lin MD Renal Ultrasound 03/29/16 0000 Signed Impressions: Service Date/Time: Tuesday, March 29, 2016 12:11 - CONCLUSION: 1. Right renal cyst. 2. Bladder not visualized. José Miguel Louis MD Lower Extremity Ultrasound 03/29/16 0000 Signed Impressions: Service Date/Time: Tuesday, March 29, 2016 11:52 - CONCLUSION: Normal examination. José Miguel Louis MD Lung Scan-VQ Nuclear Medicine 03/28/162023 Signed Impressions: Service Date/Time: Monday, March 28, 2016 21:31 - CONCLUSION: Low probability for pulmonary embolism. Vipin Magdaleno MD Abdomen/Pelvis CT 03/28/16 184 Signed Impressions: Service Date/Time: Monday, March 28, 2016 18:52 - CONCLUSION: 1. Diverticulosis of the sigmoid colon, cannot exclude diverticulitis. 2. Small amount of abdominal ascites. 3. Small left pleural effusion. 4. Ventral wall hernia containing fat along the left abdominal wall. 5. Cholecystectomy. 6. Anasarca. 7. LAP band procedure. Vipin Magdaleno MD Objective Remarks GENERAL: Elderly female in no distress HEENT: PERRLA, EOMI. No scleral icterus or conjunctival pallor. No lid lag or facial droop. CARDIOVASCULAR: Regular rate and rhythm. Systolic murmur noted RESPIRATORY: Decreased breath sounds without rhonchi. GASTROINTESTINAL: Abdomen soft, non tender, nondistended. BS normal. MUSCULOSKELETAL: Extremities without clubbing, cyanosis but with bilateral leg edema. No obvious deformities. NEUROLOGICAL: Awake, alert. No focal neurologic deficits. Moving both upper and lower extremities spontaneously. Procedures None A/P Problem List: (1) Sepsis ICD Code: A41.9 Status: Acute (2) DM (diabetes mellitus) ICD Code: E11.9 Status: Acute (3) HTN (hypertension) ICD Code: I10 Status: Acute (4) CHF (congestive heart failure) ICD Code: I50.9 Status: Acute Assessment and Plan Septic shock. Source-suspected intra-abdominal source. CT Abd/Pelvis w/ possible diverticulitis, images reviewed. Complaining of severe nausea improved on Reglan. ID switched cefepime(started 03/29) to Rocephin April 04. Continue antibiotics for 2 weeks stop date April 12 per ID. Patient coughing with green phlegm. Repeat chest x-ray with increased consolidation and edema. Obtain Sputum culture. Negative urinary legionella and streptococcal antigen. Today patient denies cough and shortness of breath Encephalopathy/ICU delirium. . Patient with visual hallucinations on/ off. Head CT, TSH and B-12 unremarkable pending RPR no confusion today. Discussed with caregiver, patient with history of intermittent confusion and memory loss likely has dementia. Diverticulitis. Rectal bleeding (per patient): Continue PPI no further bleeding. Monitor H/H. Consult GI specialist who cleared patient for Coumadin history of A. fib. We'll clarify with family why patient not on Coumadin when she got admitted patient only on aspirin and Plavix. Systolic CHF: Acute on Chronic. EF 30-40% per records from 09/2015. MAKENNA inhibitor on hold secondary to acute kidney injury Consulted Dr Lazo . Bumex currently on hold secondary to worsening renal function. We'll discontinue IV fluids SAM with low UOP. Nephrosclerosis. Worsening renal function Bumex has been discontinued, could also be related to interstitial nephritis currently receiving antimicrobials. IV hydration discontinued secondary to left base crackles history of heart failure. Patient not retaining urine continue bladder scan. Creatinine now improving Bumex has been restarted by nephrology. Avoid nephrotoxins. Hyperkalemia: As above. Improved Hypocalcemia: Replaced with Ca gluconate IV. With low Vit D and elevated PTH ct calcitriol. Hypomagnesemia. Monitor and replace. DM2: Sliding scale w/ Accu-Cheks. Resume home Lantus A1c 8.2 HTN: Continue Norvasc and Coreg with hold parameters Thrombocytopenia likely secondary to sepsis. Will monitor. DVT Prophylaxis: SCD/Teds. Discharge Planning Stable for discharge to rehabilitation Problem Qualifiers (1) Sepsis: Qualified Code: A41.9 - Sepsis, due to unspecified organism (2) DM (diabetes mellitus): Qualified Code: E08.22 - Diabetes mellitus due to underlying condition with stage 5 chronic kidney disease not on chronic dialysis, with long-term current use of insulin Shant Rios MD Apr 09, 2016 12:10
--- NOTE | 2016-04-09 12:14 | HHI.DS ---
Discharge Summary Admission Date Mar 28, 2016 at 22:34 Discharge Date: Apr 09, 2016 Admitting Diagnosis SEPSIS, ABD SOURCE (1) Sepsis ICD Code: A41.9 Diagnosis: Principal (2) DM (diabetes mellitus) ICD Code: E11.9 Diagnosis: Principal (3) HTN (hypertension) ICD Code: I10 Diagnosis: Principal (4) CHF (congestive heart failure) ICD Code: I50.9 Procedures None Brief History - From Admission This is a 80-year-old female with a PMH of HTN, CHF (Echo 09/2015 w/ EF 30-40%), Breast CA and JAMEY who came into the ER w/ complaints of SOB and productive cough w/ yellow-colored sputum x2 days. Denies chest pain or sick contacts. Also reports abdominal pain w/ nausea, but no vomiting. No diarrhea. On arrival, BP 180/81, HR 108, O2 sat 95% on RA, Afebrile. WBC normal. Neutrophil count mildly elevated. Creatinine 1.49, previously 1.25 on 05/17/15. BNP 2608. INR 1.6. CXR with no acute findings. CT Abd/Pelvis w/ diverticulosis, cannot exclude diverticulitis. V/Q Scan low probability for PE. S/p Vanc/Zosyn for Sepsis and suspected intra-abdominal infection. CBC/BMP: 04/09/16 0613 Significant Findings Laboratory Tests Test 04/07/16 04/07/16 04/07/16 04/08/16 06:35 10:32 11:15 08:25 Blood Urea Nitrogen 54 MG/DL (7-18) 55 MG/DL (7-18) Creatinine 2.96 MG/DL 2.53 MG/DL (0.50-1.00) (0.50-1.00) Estimat Glomerular Filtration 15 ML/MIN (>89) 18 ML/MIN (>89) Rate Random Glucose 321 MG/DL 167 MG/DL (74-106) (74-106) Calcium Level 7.9 MG/DL 8.1 MG/DL (8.5-10.1) (8.5-10.1) Magnesium Level 1.0 MG/DL (1.5-2.5) Albumin 2.86 GM/DL 2.1 GM/DL (3.50-5.00) (3.4-5.0) Albumin/Globulin Ratio 0.75 (1.39-2.23) Gamma Globulins 2.34 GM/DL (0.50-1.39) Urine Color [place] (YELLW/STRAW) Urine Turbidity CLOUDY (CLEAR) Urine Protein 100 mg/dL (NEG-TRACE) Urine Ketones TRACE mg/dL (NEG) Urine Occult Blood MOD (NEG) Urine Leukocyte Esterase LARGE (NEG) Urine RBC 19 /hpf (0-3) Urine WBC 64 /hpf (0-5) Urine WBC Clumps FEW (NONE) Urine Bacteria MOD /hpf (NONE) Urine Mucus FEW /lpf (OCC) Urine Yeast (Budding) MANY (NONE) Potassium Level 3.3 MEQ/L (3.5-5.1) Phosphorus Level 1.6 MG/DL (2.5-4.9) Vitamin B12 Level 1167 PG/ML (193-986) Test 04/09/16 06:13 Potassium Level 3.4 MEQ/L (3.5-5.1) Chloride Level 108 MEQ/L (98-107) Blood Urea Nitrogen 49 MG/DL (7-18) Creatinine 2.01 MG/DL (0.50-1.00) Estimat Glomerular Filtration 24 ML/MIN (>89) Rate Random Glucose 110 MG/DL (74-106) Calcium Level 6.7 MG/DL (8.5-10.1) Protein Corrected Calcium 7.5 MG/DL (8.5-10.1) Phosphorus Level 1.6 MG/DL (2.5-4.9) Total Protein 5.5 GM/DL (6.4-8.2) Imaging Last Impressions Head CT 04/08/16 0000 Signed Impressions: Service Date/Time: Friday, April 08, 2016 16:30 - CONCLUSION: Normal examination for a patient of this age. Mary Garcia MD Chest X-Ray 04/05/16 0000 Signed Impressions: Service Date/Time: Tuesday, April 05, 2016 13:24 - CONCLUSION: 1. Increasing consolidative changes left base. 2. Increasing interstitial edema. Jd Massey MD FACR Abdomen X-Ray 1/6/17 1331 Signed Impressions: Service Date/Time: Monday, April 04, 2016 14:06 - CONCLUSION: 1. No acute findings. Nonspecific bowel gas pattern. Maximino Lin MD Renal Ultrasound 03/29/16 0000 Signed Impressions: Service Date/Time: Tuesday, March 29, 2016 12:11 - CONCLUSION: 1. Right renal cyst. 2. Bladder not visualized. José Miguel Louis MD Lower Extremity Ultrasound 03/29/16 0000 Signed Impressions: Service Date/Time: Tuesday, March 29, 2016 11:52 - CONCLUSION: Normal examination. José Miguel Louis MD Lung Scan-V Nuclear Medicine 03/28/162023 Signed Impressions: Service Date/Time: Monday, March 28, 2016 21:31 - CONCLUSION: Low probability for pulmonary embolism. Vipin Magdaleno MD Abdomen/Pelvis CT 03/28/16 1841 Signed Impressions: Service Date/Time: Monday, March 28, 2016 18:52 - CONCLUSION: 1. Diverticulosis of the sigmoid colon, cannot exclude diverticulitis. 2. Small amount of abdominal ascites. 3. Small left pleural effusion. 4. Ventral wall hernia containing fat along the left abdominal wall. 5. Cholecystectomy. 6. Anasarca. 7. LAP band procedure. Vipin Magdaleno MD PE at Discharge GENERAL: Elderly female in no distress HEENT: PERRLA, EOMI. No scleral icterus or conjunctival pallor. No lid lag or facial droop. CARDIOVASCULAR: Regular rate and rhythm. Systolic murmur noted RESPIRATORY: Decreased breath sounds without rhonchi. GASTROINTESTINAL: Abdomen soft, non tender, nondistended. BS normal. MUSCULOSKELETAL: Extremities without clubbing, cyanosis but with bilateral leg edema. No obvious deformities. NEUROLOGICAL: Awake, alert. No focal neurologic deficits. Moving both upper and lower extremities spontaneously. Hospital Course Septic shock. Source-suspected intra-abdominal source. CT Abd/Pelvis w/ possible diverticulitis, images reviewed. Complaining of severe nausea improved on Reglan. ID switched cefepime(started 03/29) to Rocephin April 04. Continue antibiotics for 2 weeks stop date April 12 per ID. Patient coughing with green phlegm. Repeat chest x-ray with increased consolidation and edema. Obtain Sputum culture. Negative urinary legionella and streptococcal antigen. Today patient denies cough and shortness of breath Encephalopathy/ICU delirium. Sundowning. Patient with visual hallucinations on/ off. Head CT, TSH and B-12 unremarkable pending RPR no confusion today. Discussed with caregiver, patient with history of intermittent confusion and memory loss likely has dementia. Diverticulitis. Rectal bleeding (per patient): Continue PPI no further bleeding. Monitor H/H. Consult GI specialist who cleared patient for Coumadin history of A. fib currently sinus. Dw Caregiver, we'll clarify with family why patient not on Coumadin(she was in the past per Dr Lazo) when she got admitted patient only on aspirin and Plavix. Systolic CHF: Acute on Chronic. EF 30-40% per records from 09/2015. MAKENNA inhibitor on hold secondary to acute kidney injury Consulted Dr Lazo . Bumex currently on hold secondary to worsening renal function. We'll discontinue IV fluids SAM with low UOP. Nephrosclerosis. Worsening renal function Bumex has been discontinued, could also be related to interstitial nephritis currently receiving antimicrobials. IV hydration discontinued secondary to left base crackles history of heart failure. Patient not retaining urine continue bladder scan. Creatinine now improving Bumex has been restarted by nephrology. Avoid nephrotoxins. Hyperkalemia: As above. Improved Hypocalcemia: Replaced with Ca gluconate IV. With low Vit D and elevated PTH ct calcitriol. Hypomagnesemia. Monitor and replace. DM2: Sliding scale w/ Accu-Cheks. Resume home Lantus A1c 8.2 HTN: Continue Norvasc and Coreg with hold parameters Thrombocytopenia likely secondary to sepsis. Will monitor. DVT Prophylaxis: SCD/Teds. Pt Condition on Discharge: Stable Discharge Disposition: Discharge to SNF Discharge Time: > 30 minutes Discharge Instructions DIET: Follow Instructions for: Heart Healthy Diet, Diabetic Diet Activities you can perform: Regular-No Restrictions Activities to Avoid: Driving Follow up Referrals: Cardiology - 1 Week Nephrology - 1 Week PCP Follow-up - 1 Week New Orders: BASIC METABOLIC PROF - 1 Week New Medications: Amlodipine (Norvasc) 5 Mg Tab 5 MG PO DAILY Blood Pressure Management #30 TAB Calcitriol (Rocaltrol) 0.25 Mcg Cap 0.25 MCG PO DAILY renal dse #30 CAP Carvedilol (Coreg) 12.5 Mg Tab 12.5 MG PO Q12HR Blood Pressure Management #60 TAB Insulin Detemir Inj (Levemir Inj) 1,000 unit/ 10 ML Vial 10 UNITS SQ DAILYAC Blood Sugar Management #30 INJECTION Insulin Detemir Inj (Levemir Inj) 1,000 unit/ 10 ML Vial 5 UNITS SQ HS Blood Sugar Management #30 INJECTION Levofloxacin (Levaquin) 250 Mg Tab 250 MG PO DAILY Infection #3 TAB Magnesium Oxide (Magnesium Oxide) 241.3 Mg Tab 400 MG PO Q12HR Electrolyte Replacement #60 TAB Metronidazole (Flagyl) 500 Mg Tab 500 MG PO Q6HR Infection #12 TAB Nystatin Topical (Nystop Topical) 100,000 Unit/Gm Powd 1 APPLIC TOPICAL TID Infection #14 GM Potassium Phosphate Monobasic (K-Phos) 500 Mg Tab 1000 MG PO TID Electrolyte Replacement #30 TAB Sennosides-Docusate Sodium (Senna Plus 8.6-50 mg) 1 Tab Tab 2 TAB PO BID Prevent Constipation #30 TAB Continued Medications: Albuterol (Albuterol) 2 Mg Tab 2 MG PO TID Asthma Management #90 Ref 0 TAB Albuterol 6.7 GM Inh (Proventil Hfa 6.7 GM Inh) 90 Mcg/Act Aer 2.5 PUFF INH Q4H PRN SHORTNESS OF BREATH #1 Ref [address] (Aspirin EC) 81 Mg Tabdr 81 MG PO DAILY Ref 0 TAB Atorvastatin (Atorvastatin) 40 Mg Tab 40 MG PO HS Cholesterol Management #30 Ref 0 TAB Bumetanide (Bumex) 1 Mg Tab 1 MG PO DAILY Ref 0 TAB Clopidogrel (Plavix) 75 Mg Tab 75 MG PO DAILY Blood Clot Prevention #30 Ref 0 TAB Gabapentin (Gabapentin) 100 Mg Cap 100 MG PO BID #60 Ref 0 CAP Insulin Aspart Inj (Novolog Inj) 1,000 Unit/10 Ml Vial 1-20 UNITS SQ ACHS Max dose at bedtime:( )units; sugars less than 70,(0)units; sugars 150-199,(1) unit; sugars 200-249,(3) units; sugars 250-299,(5) units; sugars 300-349,(7) units; sugars greater than 349,(9) units Blood Sugar Management #10 Ref 0 ML Levothyroxine (Levothyroxine) 112 Mcg Tab 112 MCG PO DAILY Thyroid #30 Ref 0 TAB Omeprazole (Prilosec) 20 Mg Cap 20 MG PO DAILY #30 Ref 0 CAP Trazodone (Trazodone) 100 Mg Tab 100 MG PO HS Control Depression #30 Ref 0 TAB Discontinued Medications: Carvedilol (Coreg) 6.25 Mg Tab 6.25 MG PO DAILY #60 Ref 0 TAB Insulin Glargine Inj (Lantus Inj) 1,000 Unit/10 Ml Vial 8 UNITS SQ BID Blood Sugar Management Ref 0 VIAL Shant Rios MD Apr 09, 2016 12:14
[2016-04-09] MEDS ORDERED: POTASSIUM PHOSPHATE MONOBASIC 500 MG TAB PO SCH (13:00)
[2016-04-09 13:24] LABS: RAPID PLASMA REAGIN SCREEN NON-REACTIVE (NON-REACTVE)
[2016-04-09 13:39] VITALS: PULSE 74
[2016-04-09 15:27] LABS: ANA SCREEN NEG (NEG)
[2016-04-09 16:00] VITALS: BP 106/57; PULSE 90; RESP 16; TEMP 97; O2SAT 97
[2016-04-09] MEDS ORDERED: metroNIDAZOLE 500 MG TAB PO SCH (18:00)
[2016-04-10] MEDS ORDERED: LEVOFLOXACIN 250 MG TAB PO SCH (09:00)
== END 2016-04-09 18:32 | DRG 871 ==
LOC: NEPE 13:14 → NEDA 22:34 → N03A 03-29 05:27 → N05B 04-01 23:31
PROVIDERS: ADMIT Internal Medicine; ATTEND Internal Medicine
DX: A41.9 Sepsis, unspecified organism (principal); I50.23 Acute on chronic systolic (congestive) heart failure; R65.21 Severe sepsis with septic shock; G93.40 Encephalopathy, unspecified; K57.32 Diverticulitis of large intestine without perforation or abscess without bleeding; R18.8 Other ascites; N17.9 Acute kidney failure, unspecified; I27.0 Primary pulmonary hypertension; N18.5 Chronic kidney disease, stage 5; E87.2 Acidosis; I42.0 Dilated cardiomyopathy; I13.2 Hypertensive heart and chronic kidney disease with heart failure and with stage 5 chronic kidney disease, or end stage renal disease; Z68.41 Body mass index [BMI] 40.0-44.9, adult; E11.22 Type 2 diabetes mellitus with diabetic chronic kidney disease; E87.5 Hyperkalemia; E83.42 Hypomagnesemia; I45.10 Unspecified right bundle-branch block; I25.10 Atherosclerotic heart disease of native coronary artery without angina pectoris; G47.33 Obstructive sleep apnea (adult) (pediatric); E78.5 Hyperlipidemia, unspecified; I25.2 Old myocardial infarction; J44.9 Chronic obstructive pulmonary disease, unspecified; K21.9 Gastro-esophageal reflux disease without esophagitis; E83.51 Hypocalcemia; I48.0 Paroxysmal atrial fibrillation; I08.0 Rheumatic disorders of both mitral and aortic valves; D69.59 Other secondary thrombocytopenia; K59.00 Constipation, unspecified; R32 Unspecified urinary incontinence; E87.6 Hypokalemia; E86.0 Dehydration; R63.0 Anorexia; E11.65 Type 2 diabetes mellitus with hyperglycemia; F03.90 Unspecified dementia, unspecified severity, without behavioral disturbance, psychotic disturbance, mood disturbance, and anxiety; Z79.4 Long term (current) use of insulin; Z80.0 Family history of malignant neoplasm of digestive organs; Z85.3 Personal history of malignant neoplasm of breast; Z88.5 Allergy status to narcotic agent; Z86.718 Personal history of other venous thrombosis and embolism; Z88.1 Allergy status to other antibiotic agents; Z90.13 Acquired absence of bilateral breasts and nipples; Z91.040 Latex allergy status; Z91.19 Patient's noncompliance with other medical treatment and regimen; Z95.5 Presence of coronary angioplasty implant and graft; Z96.642 Presence of left artificial hip joint; Z98.84 Bariatric surgery status
CPT/HCPCS: 70450; 71010; 71020; 74000; 74176; 76775; 76937; 78582; 80048; 80053; 80069; 80202; 81001; 82306; 82550; 82607; 82948; 83036; 83605; 83690; 83735; 83880; 83970; 84100; 84155; 84165; 84300; 84443; 84484; 85025; 85610; 85730; 86021; 86038; 86160; 86317; 86335; 86592; 86803; 87040; 87086; 87205; 87340; 87449; 87641; 87804; 93005; 93306; 93970; 94640; 94664; 96374; 96375; A9540; A9567; C9113; J0610; J0692; J0696; J1815; J2270; J2405; J2543; J2765; J2930; J3370; J3475; J3480; J7030; J7040; J7050; J7070